=== PATIENT | male | born 1950 | race Two or more races ===

== ENCOUNTER 2023-09-28 06:14 | Inpatient (IN) | payer MEDICARE, MEDICAID ==
[~2023-09-28] VITALS: Ht 175.3 cm; Wt 76.3 kg
[2023-09-28 07:26] LABS: Basophils # (auto) 0.1 10 ^3/uL (0-0.2); Basophils % (auto) 1.4 % (0.0-2.0); Eosinophils # (auto) 0.5 10 ^3/uL (0-0.8); Eosinophils % (auto) 5.2 % (0.0-7.0); Hematocrit 32.5 % (41.0-53.0); Lymphocytes # (auto) 1.2 10 ^3/uL (0.4-5.4); Lymphocytes % (auto) 13.7 % (10.0-50.0); Mean Corpuscular Hemoglobin 33.7 pg (28.0-32.0); Mean Corpuscular Hgb Conc. 33.9 g/dL (32.0-36.0); Mean Corpuscular Volume 99.2 fL (80.0-100.0); Monocytes # (auto) 0.8 10 ^3/uL (0-1.3); Monocytes % (auto) 9.7 % (0.0-12.0); Neutrophils # (auto) 6.1 10 ^3/uL (1.6-8.6); Red Blood Cells 3.27 10^6/uL (4.5-5.90); Red Cell Distribution Width 14.2 % (11.8-14.3); White Blood Cell 8.7 10^3/uL (4.4-10.8)
[2023-09-28 07:45] LABS: Alanine Aminotransferase 24 U/L (7-40); Albumin 4.4 g/dL (3.2-4.8); Alkaline Phosphatase 77 U/L (46-116); Anion Gap 5 (5-15); Aspartate Aminotransferase 10 U/L (13-40); Bilirubin, Total 0.5 mg/dL (0.2-1.0); Blood Urea Nitrogen 49 mg/dL (9-23); Carbon Dioxide 33 mmol/L (20-30); Chloride 98 mmol/L (98-107); Glucose 121 mg/dL (74-106); Potassium 5.1 mmol/L (3.5-5.1); Sodium 136 mmol/L (136-145); Total Protein 7.3 g/dL (5.7-8.2)
[2023-09-28 07:55] LABS: Urine Bacteria None Seen /hpf (None Seen)
[2023-09-28 08:09] LABS: Urine Blood TRACE /uL (Negative); Urine Clarity Clear (Clear); Urine Color Light-Yellow (Yellow); Urine Protein, UAD 3+ (Negative); Urine Specific Gravity 1.009 (1.001-1.035); Urine Urobilinogen Normal (Negative); Urine WBC 1 /hpf (0 - 3); Urine pH 8.5 (5.0-9.0)
[2023-09-28] MEDS: cloNIDine HCL 0.1 MG TAB PO ONE ×2 (08:15→23:43)
[2023-09-28] MEDS ORDERED: ONDANSETRON HCL 4 MG/2 ML VIAL IV PRN ×2 (11:15→11:30)
[2023-09-28] MEDS ORDERED: DOCUSATE SOD 100 MG CAP PO PRN ×2 (11:15→11:30)
[2023-09-28] MEDS ORDERED: NITROGLYCERIN 0.4 MG SL TAB SL PRN ×2 (11:15→11:30)
[2023-09-28] MEDS ORDERED: MORPHINE SULFATE INJ 2 MG/ml SYRG IV PRN ×2 (11:15→11:30)
[2023-09-28] MEDS ORDERED: HYDROcodone-ACET 5/325MG TAB PO PRN ×2 (11:15→11:30)
[2023-09-28] MEDS ORDERED: ACETAMINOPHEN 325 MG TAB PO PRN ×2 (11:15→11:30)
[2023-09-28] MEDS ORDERED: SODIUM CHLOR 0.9% PF (SALINE LOCK) 10ML VIAL/SYR IV SCH (14:00)
[2023-09-28] MEDS: SODIUM CHLOR 0.9% PF (SALINE LOCK) 10ML VIAL/SYR IV SCH (14:02)
[2023-09-28 14:57] LABS: Hepatitis B Surface Antigen Negative (Negative)
[2023-09-28 15:18] LABS: Hepatitis A Ab IgM Negative; Hepatitis B Core IgM Negative
[2023-09-28 15:19] LABS: Hepatitis C Antibody Negative (Negative)
[2023-09-28] MEDS ORDERED: DEXTROSE (50%) 50ML SYRG IV PRN (17:30)
[2023-09-28 19:20] VITALS: PULSE 72; RESP 13; O2SAT 96
[2023-09-28 23:05] VITALS: BP 160/78; PULSE 68; RESP 16; RESP 18; TEMP 98.2; O2SAT 96
[2023-09-28] MEDS: InsuLIN REG 1unit/0.01ml Soln (100units/ml) SC SCH (23:43)
[2023-09-28] MEDS: ACCU-CHEK COMFORT CURVE STRIP VI SCH (23:43)
[2023-09-29] VITALS (8 sets, daily range): BP systolic 143–161; BP diastolic 55–74; PULSE 61–72; RESP 16–18; TEMP 97.8–98.2; O2SAT 94–99
[2023-09-29] MEDS ORDERED: ASPI-325 PO (02:18)
[2023-09-29] MEDS ORDERED: LOSA-534 PO (02:18)
[2023-09-29] MEDS ORDERED: AMLO1TAB22 PO (02:20)
[2023-09-29] MEDS ORDERED: ATOR20TA PO (02:20)
[2023-09-29] MEDS ORDERED: ACET-1881 PO (02:20)
[2023-09-29] MEDS ORDERED: CALC667C PO (02:20)
[2023-09-29] MEDS: InsuLIN REG 1unit/0.01ml Soln (100units/ml) SC SCH (06:12)
[2023-09-29 06:39] LABS: Basophils # (auto) 0.1 10 ^3/uL (0-0.2); Eosinophils # (auto) 0.4 10 ^3/uL (0-0.8); Eosinophils % (auto) 5.3 % (0.0-7.0); Mean Corpuscular Hgb Conc. 34.9 g/dL (32.0-36.0); Monocytes # (auto) 0.6 10 ^3/uL (0-1.3); White Blood Cell 6.8 10^3/uL (4.4-10.8)
[2023-09-29 06:43] LABS: Basophils % (auto) 1.1 % (0.0-2.0); Hematocrit 29.3 % (41.0-53.0); Hemoglobin 10.2 g/dL (13.5-17.5); Lymphocytes # (auto) 1.2 10 ^3/uL (0.4-5.4); Lymphocytes % (auto) 17.9 % (10.0-50.0); Mean Corpuscular Hemoglobin 34.8 pg (28.0-32.0); Mean Corpuscular Volume 99.6 fL (80.0-100.0); Monocytes % (auto) 8.3 % (0.0-12.0); Neutrophils # (auto) 4.6 10 ^3/uL (1.6-8.6); Neutrophils % (auto) 67.4 % (37.0-80.0); Red Blood Cells 2.94 10^6/uL (4.5-5.90); Red Cell Distribution Width 13.7 % (11.8-14.3)
[2023-09-29 06:53] LABS: Alanine Aminotransferase 18 U/L (7-40); Alkaline Phosphatase 68 U/L (46-116); Anion Gap 10 (5-15); Aspartate Aminotransferase < 8 U/L (13-40); BUN/Creatinine Ratio 6.1 (10.0-20.0); Bilirubin, Total 0.4 mg/dL (0.2-1.0); Blood Urea Nitrogen 58 mg/dL (9-23); Calcium 9.6 mg/dL (8.7-10.4); Carbon Dioxide 28 mmol/L (20-30); Chloride 98 mmol/L (98-107); Glucose 154 mg/dL (74-106); Potassium 5.5 mmol/L (3.5-5.1); Sodium 136 mmol/L (136-145); Total Protein 6.8 g/dL (5.7-8.2)
[2023-09-29] MEDS: SODIUM CHL 0.9% 1000 ML BAG XX ONE (07:00)
[2023-09-29] MEDS: LOSARTAN POTASSIUM 50 MG TAB PO SCH (10:00)
[2023-09-29] MEDS: ATORVASTATIN 20 MG TAB PO SCH (10:00)
[2023-09-29] MEDS: amLODIPine BESYLATE 5 MG TAB PO SCH (10:00)
[2023-09-29] MEDS: ASPirin-EC 81 mg tab PO SCH (10:00)
[2023-09-30] VITALS (8 sets, daily range): BP systolic 150–158; BP diastolic 58–81; PULSE 64–77; RESP 17–18; TEMP 97.8–98.4; O2SAT 94–99
[2023-09-30 06:21] LABS: Basophils # (auto) 0.1 10 ^3/uL (0-0.2); Basophils % (auto) 1.1 % (0.0-2.0); Eosinophils # (auto) 0.3 10 ^3/uL (0-0.8); Eosinophils % (auto) 4.4 % (0.0-7.0); Hematocrit 32.6 % (41.0-53.0); Hemoglobin 11.2 g/dL (13.5-17.5); Lymphocytes # (auto) 1.1 10 ^3/uL (0.4-5.4); Mean Corpuscular Hemoglobin 34.4 pg (28.0-32.0); Mean Corpuscular Hgb Conc. 34.3 g/dL (32.0-36.0); Mean Corpuscular Volume 100.2 fL (80.0-100.0); Monocytes # (auto) 0.7 10 ^3/uL (0-1.3); Monocytes % (auto) 10.7 % (0.0-12.0); Neutrophils # (auto) 4.5 10 ^3/uL (1.6-8.6); Neutrophils % (auto) 67.8 % (37.0-80.0); Red Blood Cells 3.25 10^6/uL (4.5-5.90); Red Cell Distribution Width 13.9 % (11.8-14.3); White Blood Cell 6.7 10^3/uL (4.4-10.8)
[2023-09-30] MEDS ORDERED: DEXTROSE (50%) 50ML SYRG IV PRN (08:30)
[2023-09-30 08:32] LABS: Chloride 101 mmol/L (98-107); Potassium 4.6 mmol/L (3.5-5.1); Sodium 138 mmol/L (136-145)
[2023-09-30 08:33] LABS: Anion Gap 7 (5-15); Calcium 9.7 mg/dL (8.5-10.1); Carbon Dioxide 30 mmol/L (20-30)
[2023-09-30 08:38] LABS: BUN/Creatinine Ratio 5.2 (10.0-20.0); Glucose 69 mg/dL (74-106)
[2023-09-30 08:39] LABS: Magnesium 2.1 mg/dL (1.6-2.6)
[2023-09-30 08:40] LABS: Phosphorus 4.1 mg/dL (2.4-5.1)
[2023-09-30 08:41] LABS: Blood Urea Nitrogen 37 mg/dL (9-23)
[2023-09-30] MEDS: InsuLIN REG 1unit/0.01ml Soln (100units/ml) SC SCH (11:01)
[2023-09-30] MEDS: ACCU-CHEK COMFORT CURVE STRIP VI SCH (11:02)
[2023-09-30] MEDS: amLODIPine BESYLATE 5 MG TAB PO SCH (11:16)
[2023-09-30] MEDS ORDERED: AMLO1TAB23 PO (13:19)
[2023-09-30 19:21] LABS: Folate (Folic Acid) 7.08 ng/mL (>5.38)
== END 2023-09-30 20:30 | disposition home or self-care (01) | DRG 682 ==
LOC: ER 06:14 → TELE 11:17 → TELE-WESTW 23:03 → WEST WING 09-30 17:16
PROVIDERS: ADMIT Internal Medicine; ATTEND Emergency Medicine
PROC: 5A1D70Z Performance of Urinary Filtration, Intermittent, Less than 6 Hours Per Day (ICD-10-PCS; principal; 2023-09-29)
PROC: 5A1D70Z Performance of Urinary Filtration, Intermittent, Less than 6 Hours Per Day (ICD-10-PCS; 2023-09-30)
DX: I12.0 Hypertensive chronic kidney disease with stage 5 chronic kidney disease or end stage renal disease (principal); N18.6 End stage renal disease; I16.1 Hypertensive emergency; E87.5 Hyperkalemia; E11.22 Type 2 diabetes mellitus with diabetic chronic kidney disease; R00.1 Bradycardia, unspecified; E78.5 Hyperlipidemia, unspecified; Z89.512 Acquired absence of left leg below knee; Z99.2 Dependence on renal dialysis
CPT/HCPCS: 36415; 71045; 80048; 80053; 80074; 81001; 82607; 82746; 82962; 83036; 83735; 84100; 84439; 84484; 85025; 87081; 90935; 93005; G0378; J1642; J1815

== ENCOUNTER 2024-01-30 21:41 | Inpatient (IN) | payer MEDICAID ==
[~2024-01-30] VITALS: Ht 175.3 cm; Wt 79.5 kg
[~2024-01-30 21:41] MED LIST: ACET-1881 PO; AMLO1TAB22 PO; AMLO1TAB23 PO; ASPI-325 PO; ATOR20TA PO; CALC667C PO; LOSA-534 PO
[2024-01-30] MEDS: SODIUM CHLORIDE 0.9% 1,000 ML IV ONE (22:50)
[2024-01-30 22:56] LABS: Basophils # (auto) 0.1 10 ^3/uL (0-0.2); Eosinophils # (auto) 0.5 10 ^3/uL (0-0.8)
[2024-01-30] MEDS: FAMOTIDINE (10MG/ML) 2ML VL IV ONE (22:57)
[2024-01-30] MEDS: ONDANSETRON HCL 4 MG/2 ML VIAL IV ONE (22:57)
[2024-01-30 22:58] LABS: Eosinophils % (auto) 6.3 % (0.0-7.0); Hematocrit 25.9 % (41.0-53.0); Lymphocytes # (auto) 1.1 10 ^3/uL (0.4-5.4); Lymphocytes % (auto) 13.3 % (10.0-50.0); Mean Corpuscular Hgb Conc. 34.9 g/dL (32.0-36.0); Mean Corpuscular Volume 97.3 fL (80.0-100.0); Monocytes # (auto) 0.9 10 ^3/uL (0-1.3); Monocytes % (auto) 10.4 % (0.0-12.0); Neutrophils # (auto) 5.8 10 ^3/uL (1.6-8.6); Platelet Count (auto) 207 10^3/uL (140-450); Red Blood Cells 2.66 10^6/uL (4.5-5.90); Red Cell Distribution Width 14.1 % (11.8-14.3); White Blood Cell 8.4 10^3/uL (4.4-10.8)
[2024-01-30 23:10] LABS: Alanine Aminotransferase 18 U/L (7-40); Albumin 4.3 g/dL (3.2-4.8); Alkaline Phosphatase 111 U/L (46-116); Anion Gap 9 (5-15); Aspartate Aminotransferase 12 U/L (13-40); BUN/Creatinine Ratio 6.4 (10.0-20.0); Blood Urea Nitrogen 41 mg/dL (9-23); Calcium 8.5 mg/dL (8.7-10.4); Carbon Dioxide 27 mmol/L (20-31); Chloride 101 mmol/L (98-107); Glucose 151 mg/dL (74-106); Lipase 59 U/L (12-53); Potassium 4.6 mmol/L (3.5-5.1); Sodium 137 mmol/L (136-145)
[2024-01-30 23:11] LABS: Bilirubin, Total 0.5 mg/dL (0.2-1.0); Total Protein 7.2 g/dL (5.7-8.2)
[2024-01-31 02:38] LABS: Urine WBC None Seen /hpf (0 - 3)
[2024-01-31 02:40] VITALS: PULSE 87; RESP 21; O2SAT 98
[2024-01-31 02:47] LABS: Urine Bacteria FEW /hpf (None Seen); Urine Blood 1+ /uL (Negative); Urine Clarity Turbid (Clear); Urine Color Light-Yellow (Yellow); Urine Protein, UAD 3+ (Negative); Urine Specific Gravity 1.013 (1.001-1.035); Urine Urobilinogen Normal (Negative)
[2024-01-31] MEDS ORDERED: HYDROcodone-ACET 5/325MG TAB PO PRN (06:00)
[2024-01-31] MEDS ORDERED: DOCUSATE SOD 100 MG CAP PO PRN (06:00)
[2024-01-31] MEDS ORDERED: ACETAMINOPHEN 325 MG TAB PO PRN (06:00)
[2024-01-31] MEDS ORDERED: hydrALAZINE HCL 20 MG/ML VL IV PRN (06:00)
[2024-01-31] MEDS ORDERED: MORPHINE SULFATE INJ 2 MG/ml SYRG IV PRN (06:00)
[2024-01-31] MEDS ORDERED: ONDANSETRON HCL 4 MG/2 ML VIAL IV PRN (06:00)
[2024-01-31] MEDS ORDERED: NITROGLYCERIN 0.4 MG SL TAB SL PRN (06:00)
[2024-01-31] MEDS ORDERED: DEXTROSE (50%) 50ML SYRG IV PRN (06:15)
[2024-01-31] MEDS: SODIUM CHLOR 0.9% PF (SALINE LOCK) 10ML VIAL/SYR IV SCH (06:22)
[2024-01-31] MEDS: DOCUSATE SOD 100 MG CAP PO ONE (06:26)
[2024-01-31] MEDS: cefTRIAXone 1GM/50ML D5W 50 ML IV ONE (06:31)
[2024-01-31] MEDS: InsuLIN REG 1unit/0.01ml Soln (100units/ml) SC SCH (06:39)
[2024-01-31] MEDS: ACCU-CHEK COMFORT CURVE STRIP VI SCH (06:39)
[2024-01-31 06:50] LABS: Basophils # (auto) 0.1 10 ^3/uL (0-0.2); Basophils % (auto) 1.1 % (0.0-2.0); Eosinophils # (auto) 0.5 10 ^3/uL (0-0.8); Eosinophils % (auto) 6.7 % (0.0-7.0); Hematocrit 25.7 % (41.0-53.0); Hemoglobin 8.9 g/dL (13.5-17.5); Lymphocytes # (auto) 0.9 10 ^3/uL (0.4-5.4); Lymphocytes % (auto) 11.1 % (10.0-50.0); Mean Corpuscular Hemoglobin 33.8 pg (28.0-32.0); Mean Corpuscular Hgb Conc. 34.5 g/dL (32.0-36.0); Mean Corpuscular Volume 97.8 fL (80.0-100.0); Monocytes # (auto) 0.7 10 ^3/uL (0-1.3); Monocytes % (auto) 9.6 % (0.0-12.0); Neutrophils # (auto) 5.5 10 ^3/uL (1.6-8.6); Neutrophils % (auto) 71.5 % (37.0-80.0); Platelet Count (auto) 197 10^3/uL (140-450); Red Blood Cells 2.63 10^6/uL (4.5-5.90); Red Cell Distribution Width 14.1 % (11.8-14.3); White Blood Cell 7.7 10^3/uL (4.4-10.8)
[2024-01-31 07:04] LABS: Alanine Aminotransferase 17 U/L (7-40); Albumin 4.3 g/dL (3.2-4.8); Alkaline Phosphatase 110 U/L (46-116); Anion Gap 12 (5-15); Aspartate Aminotransferase 11 U/L (13-40); BUN/Creatinine Ratio 6.8 (10.0-20.0); Blood Urea Nitrogen 45 mg/dL (9-23); Calcium 8.7 mg/dL (8.7-10.4); Carbon Dioxide 26 mmol/L (20-31); Chloride 101 mmol/L (98-107); Glucose 103 mg/dL (74-106); Potassium 4.4 mmol/L (3.5-5.1); Sodium 139 mmol/L (136-145)
[2024-01-31 07:05] LABS: Bilirubin, Total 0.6 mg/dL (0.2-1.0); Total Protein 7.2 g/dL (5.7-8.2)
[2024-01-31 08:00] VITALS: PULSE 80; RESP 21
[2024-01-31] MEDS: SEVELAMER 800 MG TAB PO SCH (08:10)
[2024-01-31] MEDS: FAMOTIDINE (10MG/ML) 2ML VL IV SCH (10:12)
[2024-01-31] MEDS: ASPirin 81 mg TAB PO SCH (10:12)
[2024-01-31] MEDS: B-COMPLEX W/ C & FOLIC ACID(NEPHROVITE TAB) PO SCH (10:12)
[2024-01-31] MEDS: amLODIPine BESYLATE 5 MG TAB PO SCH (10:13)
[2024-01-31] MEDS ORDERED: CEFD300C2 PO (10:50)
[2024-01-31] MEDS: SODIUM CHL 0.9% 1000 ML BAG XX ONE (11:00)
[2024-01-31 11:39] LABS: Magnesium 1.8 mg/dL (1.6-2.6)
[2024-01-31 11:41] LABS: Phosphorus 4.7 mg/dL (2.4-5.1)
[2024-01-31] MEDS: POLYETHYLENE GLYCOL 17 GM PWDR PO SCH (13:12)
[2024-01-31 14:48] VITALS: BP 165/69; PULSE 80; RESP 18; TEMP 97.9; O2SAT 99
[2024-01-31] MEDS ORDERED: EPOETIN ALFA-EPBX 10,000 UNIT/1ML VIAL SC ONE (21:00)
[2024-01-31] MEDS ORDERED: ATORVASTATIN 20 MG TAB PO SCH (22:00)
[2024-02-01] MEDS ORDERED: cefTRIAXone 1GM/50ML D5W 50 ML IV SCH (06:00)
== END 2024-01-31 19:30 | disposition home or self-care (01) | DRG 388 ==
LOC: EDBD 21:41 → ER 21:41 → TELE 01-31 06:03
PROVIDERS: ADMIT Nurse Practitioner Family; ATTEND Nurse Practitioner Family
DX: K56.41 Fecal impaction (principal); I50.41 Acute combined systolic (congestive) and diastolic (congestive) heart failure; N18.6 End stage renal disease; I13.2 Hypertensive heart and chronic kidney disease with heart failure and with stage 5 chronic kidney disease, or end stage renal disease; N30.00 Acute cystitis without hematuria; I16.0 Hypertensive urgency; D63.1 Anemia in chronic kidney disease; E11.22 Type 2 diabetes mellitus with diabetic chronic kidney disease; H54.3 Unqualified visual loss, both eyes; E11.51 Type 2 diabetes mellitus with diabetic peripheral angiopathy without gangrene; Z89.512 Acquired absence of left leg below knee; Z99.2 Dependence on renal dialysis; Z86.73 Personal history of transient ischemic attack (TIA), and cerebral infarction without residual deficits; Z87.442 Personal history of urinary calculi; Z79.4 Long term (current) use of insulin; N20.0 Calculus of kidney
CPT/HCPCS: 36415; 80053; 81001; 82306; 82962; 83036; 83690; 83735; 83880; 83970; 84100; 84484; 85025; 96374; 96375; G0378; J2405; J3490

== ENCOUNTER 2024-02-26 17:24 | Inpatient (IN) | payer MEDICAID ==
[~2024-02-26] VITALS: Ht 175.3 cm; Wt 77.6 kg
[~2024-02-26 17:24] MED LIST changes: +CEFD300C2 PO
[2024-02-26 18:05] VITALS: PULSE 65; RESP 16; O2SAT 96
[2024-02-26 18:18] LABS: Basophils # (auto) 0.1 10 ^3/uL (0-0.2); Basophils % (auto) 1.1 % (0.0-2.0); Eosinophils # (auto) 0.4 10 ^3/uL (0-0.8); Eosinophils % (auto) 5.4 % (0.0-7.0); Hematocrit 30.2 % (41.0-53.0); Hemoglobin 10.4 g/dL (13.5-17.5); Lymphocytes # (auto) 0.8 10 ^3/uL (0.4-5.4); Mean Corpuscular Hgb Conc. 34.3 g/dL (32.0-36.0); Mean Corpuscular Volume 99.1 fL (80.0-100.0); Monocytes # (auto) 0.7 10 ^3/uL (0-1.3); Monocytes % (auto) 9.5 % (0.0-12.0); Platelet Count (auto) 200 10^3/uL (140-450); Red Blood Cells 3.05 10^6/uL (4.5-5.90); Red Cell Distribution Width 15.3 % (11.8-14.3)
[2024-02-26 18:31] LABS: Alanine Aminotransferase 24 U/L (7-40); Albumin 4.4 g/dL (3.2-4.8); Alkaline Phosphatase 147 U/L (46-116); Anion Gap 7 (5-15); Aspartate Aminotransferase 17 U/L (13-40); Bilirubin, Total 0.6 mg/dL (0.2-1.0); Blood Urea Nitrogen 40 mg/dL (9-23); Carbon Dioxide 28 mmol/L (20-31); Chloride 101 mmol/L (98-107); Glucose 91 mg/dL (74-106); Lipase 65 U/L (12-53); Potassium 4.4 mmol/L (3.5-5.1); Sodium 136 mmol/L (136-145); Total Protein 7.4 g/dL (5.7-8.2)
[2024-02-26] MEDS ORDERED: ONDANSETRON HCL 4 MG/2 ML VIAL IV PRN (21:15)
[2024-02-26 23:00] VITALS: PULSE 81; RESP 14; O2SAT 96
[2024-02-26] MEDS ORDERED: NITROGLYCERIN 0.4 MG SL TAB SL PRN (23:00)
[2024-02-26] MEDS ORDERED: MORPHINE SULFATE INJ 2 MG/ml SYRG IV PRN (23:00)
[2024-02-27] VITALS (8 sets, daily range): BP systolic 139–161; BP diastolic 64–73; PULSE 59–69; RESP 15–20; TEMP 97.4–98.4; O2SAT 94–97
[2024-02-27] MEDS: ONDANSETRON HCL 4 MG/2 ML VIAL IV ONE
[2024-02-27] MEDS ORDERED: cloNIDine HCL 0.1 MG TAB PO SCH
[2024-02-27] MEDS: SODIUM CHLOR 0.9% PF (SALINE LOCK) 10ML VIAL/SYR IV SCH (00:01)
[2024-02-27] MEDS: AZITHROMYCIN 500MG/ 250ML 250 ML IV ONE (00:01)
[2024-02-27] MEDS: MORPHINE SULFATE 4 MG/ML SYR/VIAL IV ONE (00:01)
[2024-02-27] MEDS: cloNIDine HCL 0.1 MG TAB PO PRN (00:02)
[2024-02-27] MEDS: ATORVASTATIN 20 MG TAB PO SCH (00:12)
[2024-02-27 05:37] LABS: Basophils # (auto) 0.1 10 ^3/uL (0-0.2); Basophils % (auto) 1.9 % (0.0-2.0); Eosinophils # (auto) 0.2 10 ^3/uL (0-0.8); Eosinophils % (auto) 3.8 % (0.0-7.0); Hematocrit 26.2 % (41.0-53.0); Hemoglobin 8.9 g/dL (13.5-17.5); Lymphocytes # (auto) 0.5 10 ^3/uL (0.4-5.4); Lymphocytes % (auto) 10.2 % (10.0-50.0); Mean Corpuscular Hemoglobin 33.5 pg (28.0-32.0); Mean Corpuscular Hgb Conc. 33.9 g/dL (32.0-36.0); Mean Corpuscular Volume 98.9 fL (80.0-100.0); Monocytes # (auto) 0.5 10 ^3/uL (0-1.3); Monocytes % (auto) 9.1 % (0.0-12.0); Platelet Count (auto) 179 10^3/uL (140-450); Red Blood Cells 2.65 10^6/uL (4.5-5.90); Red Cell Distribution Width 15.3 % (11.8-14.3); White Blood Cell 5.4 10^3/uL (4.4-10.8)
[2024-02-27 05:58] LABS: Alanine Aminotransferase 18 U/L (7-40); Albumin 3.6 g/dL (3.2-4.8); Alkaline Phosphatase 118 U/L (46-116); Anion Gap 9 (5-15); Aspartate Aminotransferase 11 U/L (13-40); BUN/Creatinine Ratio 7.7 (10.0-20.0); Bilirubin, Total 0.4 mg/dL (0.2-1.0); Calcium 8.7 mg/dL (8.7-10.4); Carbon Dioxide 27 mmol/L (20-31); Chloride 100 mmol/L (98-107); Potassium 5.3 mmol/L (3.5-5.1); Sodium 136 mmol/L (136-145); Total Protein 6.4 g/dL (5.7-8.2)
[2024-02-27 06:07] LABS: Blood Urea Nitrogen 50 mg/dL (9-23); Glucose 199 mg/dL (74-106)
[2024-02-27] MEDS: ASPirin 81 mg TAB PO SCH (10:43)
[2024-02-27] MEDS: SODIUM CHL 0.9% 1000 ML BAG XX ONE (12:00)
[2024-02-27] MEDS: CALCIUM ACETATE 667 MG CAP PO SCH (18:03)
[2024-02-27] MEDS: AZITHROMYCIN 500MG/ 250ML 250 ML IV SCH (21:42)
[2024-02-27] MEDS: EPOETIN ALFA-EPBX 4,000 UNIT/ML VIAL SC ONE (21:47)
[2024-02-28] VITALS (8 sets, daily range): BP systolic 119–164; BP diastolic 64–77; PULSE 55–69; RESP 16–20; TEMP 97.6–98.4; O2SAT 92–99
[2024-02-28] MEDS: ACETAMINOPHEN 325 MG TAB PO PRN (02:26)
[2024-02-28 05:51] LABS: Basophils # (auto) 0.1 10 ^3/uL (0-0.2); Basophils % (auto) 1.7 % (0.0-2.0); Eosinophils # (auto) 0.3 10 ^3/uL (0-0.8); Hematocrit 27.6 % (41.0-53.0); Hemoglobin 9.4 g/dL (13.5-17.5); Lymphocytes # (auto) 0.7 10 ^3/uL (0.4-5.4); Lymphocytes % (auto) 11.8 % (10.0-50.0); Mean Corpuscular Hemoglobin 33.7 pg (28.0-32.0); Mean Corpuscular Hgb Conc. 34.1 g/dL (32.0-36.0); Mean Corpuscular Volume 98.7 fL (80.0-100.0); Monocytes # (auto) 0.5 10 ^3/uL (0-1.3); Monocytes % (auto) 8.5 % (0.0-12.0); Neutrophils # (auto) 4.4 10 ^3/uL (1.6-8.6); Nucleated Red Blood Cells % 0.1 %; Platelet Count (auto) 179 10^3/uL (140-450); Red Cell Distribution Width 14.7 % (11.8-14.3)
[2024-02-28 06:02] LABS: Chloride 99 mmol/L (98-107); Potassium 4.6 mmol/L (3.5-5.1); Sodium 137 mmol/L (136-145)
[2024-02-28 06:03] LABS: Anion Gap 9 (5-15); Calcium 9.1 mg/dL (8.7-10.4); Carbon Dioxide 29 mmol/L (20-31)
[2024-02-28 06:08] LABS: Blood Urea Nitrogen 46 mg/dL (9-23); Glucose 81 mg/dL (74-106)
[2024-02-28] MEDS: DOCUSATE SOD 100 MG CAP PO PRN (09:19)
[2024-02-29] VITALS (8 sets, daily range): BP systolic 120–178; BP diastolic 72–82; PULSE 54–75; RESP 16–20; TEMP 97.3–99; O2SAT 96–99
[2024-02-29 07:19] LABS: Basophils # (auto) 0.1 10 ^3/uL (0-0.2); Eosinophils # (auto) 0.4 10 ^3/uL (0-0.8); Eosinophils % (auto) 7.5 % (0.0-7.0); Hematocrit 28.9 % (41.0-53.0); Hemoglobin 9.8 g/dL (13.5-17.5); Lymphocytes # (auto) 0.8 10 ^3/uL (0.4-5.4); Lymphocytes % (auto) 15.9 % (10.0-50.0); Mean Corpuscular Hemoglobin 33.7 pg (28.0-32.0); Mean Corpuscular Hgb Conc. 33.9 g/dL (32.0-36.0); Mean Corpuscular Volume 99.5 fL (80.0-100.0); Monocytes # (auto) 0.6 10 ^3/uL (0-1.3); Monocytes % (auto) 10.6 % (0.0-12.0); Neutrophils # (auto) 3.3 10 ^3/uL (1.6-8.6); Platelet Count (auto) 182 10^3/uL (140-450); Red Cell Distribution Width 15.5 % (11.8-14.3); White Blood Cell 5.2 10^3/uL (4.4-10.8)
[2024-02-29 07:30] LABS: Chloride 98 mmol/L (98-107); Potassium 5.3 mmol/L (3.5-5.1); Sodium 133 mmol/L (136-145)
[2024-02-29 07:31] LABS: Anion Gap 10 (5-15); Carbon Dioxide 25 mmol/L (20-31)
[2024-02-29 07:32] LABS: Calcium 8.5 mg/dL (8.7-10.4)
[2024-02-29 07:36] LABS: Glucose 151 mg/dL (74-106)
[2024-02-29 07:37] LABS: BUN/Creatinine Ratio 7.6 (10.0-20.0); Blood Urea Nitrogen 54 mg/dL (9-23)
[2024-02-29] MEDS: cefTRIAXone 1GM/50ML D5W 50 ML IV SCH (12:38)
[2024-02-29] MEDS: hydrALAZINE HCL 20 MG/ML VL IV PRN (12:46)
[2024-02-29] MEDS: HYDROcodone-ACET 5/325MG TAB PO PRN (12:56)
[2024-02-29] MEDS: LACTULOSE 20Gm/30ML SOLN PO ONE (16:18)
[2024-03-01] VITALS (7 sets, daily range): BP systolic 128–159; BP diastolic 45–87; PULSE 55–80; RESP 9–20; TEMP 97.6–98.9; O2SAT 94–98
[2024-03-01 09:55] LABS: Chloride 100 mmol/L (98-107); Potassium 3.4 mmol/L (3.5-5.1); Sodium 135 mmol/L (136-145)
[2024-03-01 09:56] LABS: Anion Gap 5 (5-15); Calcium 8.6 mg/dL (8.7-10.4); Carbon Dioxide 30 mmol/L (20-31)
[2024-03-01 10:01] LABS: BUN/Creatinine Ratio 8.5 (10.0-20.0); Glucose 93 mg/dL (74-106)
[2024-03-01 10:07] LABS: Blood Urea Nitrogen 33 mg/dL (9-23)
[2024-03-01] MEDS ORDERED: DOXY1CAP57 PO (12:06)
== END 2024-03-01 19:16 | disposition home or self-care (01) | DRG 177 ==
LOC: ER 17:24 → EDBD 17:24 → TELE 22:47 → TELE-EAST 02-27 03:47
PROVIDERS: ADMIT Internal Medicine; ATTEND Nurse Practitioner Acute Care
PROC: 5A1D70Z Performance of Urinary Filtration, Intermittent, Less than 6 Hours Per Day (ICD-10-PCS; principal; 2024-02-27)
DX: J15.69 Pneumonia due to other Gram-negative bacteria (principal); I50.23 Acute on chronic systolic (congestive) heart failure; N18.6 End stage renal disease; I13.2 Hypertensive heart and chronic kidney disease with heart failure and with stage 5 chronic kidney disease, or end stage renal disease; K59.00 Constipation, unspecified; J15.9 Unspecified bacterial pneumonia; I16.0 Hypertensive urgency; D63.1 Anemia in chronic kidney disease; E11.22 Type 2 diabetes mellitus with diabetic chronic kidney disease; E78.5 Hyperlipidemia, unspecified; E87.5 Hyperkalemia; Z99.2 Dependence on renal dialysis; Z89.512 Acquired absence of left leg below knee; Z79.899 Other long term (current) drug therapy
CPT/HCPCS: 36415; 74176; 80048; 80053; 83690; 85025; 87081; 87340; 90935; G0378; J2405

== ENCOUNTER 2024-03-04 09:13 | Emergency (ER) | payer MEDICAID ==
[~2024-03-04] VITALS: Ht 177.8 cm; Wt 77.0 kg
[~2024-03-04 09:13] MED LIST changes: -AMLO1TAB23 PO; -CEFD300C2 PO; +DOXY1CAP57 PO
[2024-03-04 10:06] LABS: Chloride 100 mmol/L (98-107); Potassium 4.9 mmol/L (3.5-5.1); Sodium 135 mmol/L (136-145)
[2024-03-04 10:07] VITALS: PULSE 82; RESP 17; O2SAT 97
[2024-03-04 10:07] LABS: Anion Gap 12 (5-15); Calcium 8.9 mg/dL (8.7-10.4); Carbon Dioxide 23 mmol/L (20-31)
[2024-03-04 10:12] LABS: BUN/Creatinine Ratio 7.2 (10.0-20.0); Blood Urea Nitrogen 62 mg/dL (9-23); Glucose 83 mg/dL (74-106)
[2024-03-04 10:16] LABS: Basophils # (auto) 0.1 10 ^3/uL (0-0.2); Basophils % (auto) 1.3 % (0.0-2.0); Eosinophils # (auto) 0.4 10 ^3/uL (0-0.8); Eosinophils % (auto) 5.3 % (0.0-7.0); Hematocrit 31.3 % (41.0-53.0); Hemoglobin 10.3 g/dL (13.5-17.5); Lymphocytes % (auto) 13.4 % (10.0-50.0); Mean Corpuscular Hemoglobin 33.5 pg (28.0-32.0); Mean Corpuscular Hgb Conc. 33.1 g/dL (32.0-36.0); Mean Corpuscular Volume 101.1 fL (80.0-100.0); Monocytes # (auto) 0.7 10 ^3/uL (0-1.3); Monocytes % (auto) 9.3 % (0.0-12.0); Neutrophils # (auto) 5.2 10 ^3/uL (1.6-8.6); Neutrophils % (auto) 70.7 % (37.0-80.0); Platelet Count (auto) 174 10^3/uL (140-450); Red Blood Cells 3.09 10^6/uL (4.5-5.90); Red Cell Distribution Width 15.9 % (11.8-14.3); White Blood Cell 7.3 10^3/uL (4.4-10.8)
--- NOTE | 2024-03-04 10:38 | ED.PDOC ---
GI ASSESSMENT HPI Comments 73 year old male RAZIA presents to the ED with chief complaint of abdominal pain. Patient reports that he has been experiencing suprapubic abdominal cramping for the past 8 days with an associated single episode of diarrhea after 6 days of no bowel movements. Patient relays that he currently attends dialysis and last went on Thursday. 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 Patient notes he last urinated today and last had a bowel movement yesterday. Patient denies any fever, chills, dizziness, chest pain, or SOB. Chief Complaint: Abdominal Pain Time Seen by MD: 10:30 Primary Care Provider: NONE Reviewed Notes: Nurses Notes, Filter Worker Notes, Medications, Allergies Allergies: Coded Allergies: NO KNOWN ALLERGIES (Unverified , 09/28/23) Home Meds Active Scripts Doxycycline Monohydrate (Doxycycline Monohydrate) 100 Mg Cap, 1 CAP PO BID for 7 Days, #14 CAP Prov:JOVANNA ALANIZ COCONUT CANDY MAKER 03/01/24 Reported Medications Atorvastatin Calcium (Lipitor) 20 Mg Tab, 1 TAB PO DAILY, #90 TAB 1 Refill 09/29/23 Acetaminophen (Acetaminophen) 325 Mg Tab, 650 MG PO TIDP PRN for PAIN SCALE 1 THRU 6 for 30 Days, MG 0 Refills 09/29/23 Amlodipine Besylate (Amlodipine Besylate) 5 Mg Tab, 5 MG PO DAILY for 30 Days, MG 09/29/23 Calcium Acetate (Phosphate Bin (Calcium Acetate) 667 Mg Cap, 667 MG PO TIDWM for 30 Days, MG 09/29/23 Losartan Potassium (Losartan Potassium) 50 Mg Tab, 50 MG PO BID for 30 Days, MG 09/29/23 Aspirin (Aspirin Low Dose) 81 Mg Tab, 1 TAB PO DAILY 09/29/23 Information Source: Patient, Emergency Med Personnel Mode of Arrival: EMS Timing: Days Duration: Since onset Prehospital treatment: None Quality: Cramping Vomitus: None Stool: Watery Severity: Moderate Recent: None Recent Hx of: None Pain Location: Suprapubic Modifying Factors: Nothing Associated sign and symptoms: Diarrhea, Abdominal Pain Past Medical History PAST MEDICAL HISTORY: CHF, DM, ESRD, High Lipids, HTN Surgical History: BKA, Hernia Repair Family History Family History: Reviewed,noncontributory to illness Social History Smoker: Non-Smoker Alcohol: Denies ETOH Use Drugs: Denies Drug Use Lives In: Home Constitutional: denies: chills, diaphoresis, fatigue, fever, malaise, sweats, weakness, others EENTM: denies: blurred vision, double vision, ear bleeding, ear discharge, ear drainage, ear pain, ear ringing, eye pain, eye redness, hearing loss, mouth pain, mouth swelling, nasal discharge, nose bleeding, nose congestion, nose pain, photophobia, tearing, throat pain, throat swelling, voice changes, others Respiratory: denies: cough, hemoptysis, orthopnea, SOB at rest, shortness of breath, SOB with excertion, stridor, wheezing, others Cardiovascular: denies: chest pain, dizzy spells, diaphoresis, Dyspnea on exertion, edema, irregular heart beat, left arm pain, lightheadedness, palpitations, PND, syncope, others Gastrointestinal: reports: abdominal pain, diarrhea; denies: abdomen distended, blood streaked bowels, constipated, dysphagia, difficulty swallowing, h ematemesis, melena, nausea, poor appetite, poor fluid intake, rectal bleeding, rectal pain, vomiting, others Genitourinary: denies: burning, dysuria, flank pain, frequency, hematuria, incontinence, penile discharge, penile sore, pain, testicle pain, testicle swelling, urgency, others Neurological: denies: dizziness, fainting, headache, left sided numbness, left sided weakness, numbness, paresthesia, pre-existing deficit, right sided numbness, right sided weakness, seizure, speech problems, tingling, tremors, weakness, others Musculoskeletal: reports: others (Bilateral foot pain); denies: back pain, gout, joint pain, joint swelling, muscle pain, muscle stiffness, neck pain Integumetry: denies: bruises, change in color, change in hair/nails, dryness, laceration, lesions, lumps, rash, wounds, others Allergic/Immunocompromised: denies: Difficulty Healing, Frequent Infections, Hives, Itching, others Hematologic/Lymphatic: denies: anemia, blood clots, easy bleeding, easy bruising, swollen glands, others Endocrine: denies: excessive hunger, excessive sweating, excessive thirst, excessive urination, flushing, intolerance to cold, intolerance to heat, unexplained weight gain, unexplained weight loss, others Psychiatric: denies: anxiety, bipolar disorder, depression, hopeless, panic disorder, schizophrenia, sleepless, suicidal, others All Other Systems: Reviewed and Negative Physical Exam General Appearance: No Apparent Distress, Normal HEENT: Normal ENT Inspection, PERRL/EOMI, Other (Legally blind.) Neck: Full Range of Motion, Non-Tender, Normal, Normal Inspection Respiratory: Chest Non-Tender, Lungs Clear, No Accessory Muscle Use, No Respiratory Distress, Normal Breath Sounds Cardiovascular: No Edema, No JVD, No Murmur, No Gallop, Normal Peripheral Pulses, Regular Rate/Rhythm Breast Exam: Deferred Gastrointestinal: No Organomegaly, Non Tender, No Pulsatile Mass, Normal Bowel Sounds, Soft Genitalia: Deferred Pelvic: Deferred Rectal: Deferred Extremities: No calf tenderness, Normal capillary refill, Normal range of motion, Non-tender, Other (Left brachial fistula with good thrill. 2+ pitting edema to right lower extremity. Prosthesis of left lower extremity.) Musculoskeletal : Apperance: Normal Neurologic: Alert, automation and controls supervisor II-XII nml as Tested, No Motor Deficits, Normal Affect, Normal Mood, No Sensory Deficits Cerebellar Function: Normal Reflexes: Normal Skin: Dry, Normal Color, Warm Lymphatic: No Adenopathy EKG EKG : Pulse Rate (adult): 86 [place]: Normal Cardiac Rhythm: NSR Block: None Hypertrophy: None ST: Normal Comments QTC of 528 prolonged, artifact. Was a procedure done? Was a procedure done?: No GI differential Dx Differential Diagnosis: Appendicitis Other Differential Diagnosis Hypertensive urgency, fluid overload requiring dialysis, small-bowel obstruction, urinary obstruction X-Ray, Labs, Meds, VS Vital Signs Date Time Temp Pulse Resp B/P (MAP) Pulse Ox O2 Delivery O2 Flow Rate FiO2 03/04/24 15:00 97.5 61 12 138/70 (92) 94 97.5 03/04/24 14:00 61 12 142/65 (90) 94 03/04/24 12:16 70 15 165/70 03/04/24 12:00 72 17 165/70 (101) 95 03/04/24 11:19 200/91 03/04/24 11:00 85 17 188/89 (122) 95 03/04/24 10:38 86 03/04/24 10:07 82 17 97 Room Air* 0 21 03/04/24 10:06 97.5 83 17 206/89 (128) 95 97.5 03/04/24 09:19 97.3 16 16 222/95 (137) 87 03/04/24 09:13 86 Lab Test 03/04/24 11:11 03/04/24 09:39 03/04/24 09:33 Range/Units Urine Color Light-yellow Yellow Urine Clarity Clear Clear Urine pH 8.0 5.0-9.0 Urine Specific [place] 1.009 1.001-1.035 Urine Protein 2+ H Negative Urine Ketones Negative Negative Urine Blood Trace H Negative /uL Urine Nitrite Negative Negative Urine Bilirubin Negative Negative Urine Urobilinogen Normal Negative mg/dL Urine Leukocyte Esterase Negative Negative /uL Urine RBC 3 0 - 3 /hpf Urine WBC <1 0 - 3 /hpf Urine Squamous Epithelial Cells None seen <5 /hpf Urine Bacteria None seen None Seen /hpf Urine Glucose 1+ H Normal mg/dL White Blood Count 7.3 # 4.4-10.8 10^3/uL Red Blood Count 3.09 L 4.5-5.90 10^6/uL Hemoglobin 10.3 L 13.5-17.5 g/dL Hematocrit 31.3 L 41.0-53.0 % Mean Corpuscular Volume 101.1 H 80.0-100.0 fL Mean Corpuscular Hemoglobin 33.5 H 28.0-32.0 pg Mean Corpuscular Hemoglobin Concent 33.1 32.0-36.0 g/dL Red Cell Distribution Width 15.9 H 11.8-14.3 % Platelet Count 174 140-450 10^3/uL Mean Platelet Volume 8.2 6.9-10.8 fL Neutrophils (%) (Auto) 70.7 37.0-80.0 % Lymphocytes (%) (Auto) 13.4 10.0-50.0 % Monocytes (%) (Auto) 9.3 0.0-12.0 % Eosinophils (%) (Auto) 5.3 0.0-7.0 % Basophils (%) (Auto) 1.3 0.0-2.0 % Neutrophils # (Auto) 5.2 1.6-8.6 10 ^3/uL Lymphocytes # (Auto) 1.0 0.4-5.4 10 ^3/uL Monocytes # (Auto) 0.7 0-1.3 10 ^3/uL Eosinophils # (Auto) 0.4 0-0.8 10 ^3/uL Basophils # (Auto) 0.1 0-0.2 10 ^3/uL Nucleated Red Blood Cells 0.0 % Sodium Level 135 L 136-145 mmol/L Potassium Level 4.9 3.5-5.1 mmol/L Chloride Level 100 98-107 mmol/L Carbon Dioxide Level 23 20-31 mmol/L Anion Gap 12 5-15 Blood Urea Nitrogen 62 H 9-23 mg/dL Creatinine 8.63 #H 0.700-1.30 mg/dL Glomerular Filtration Rate Calc 6 >90 mL/min BUN/Creatinine Ratio 7.2 L 10.0-20.0 Serum Glucose 83 74-106 mg/dL Calcium Level 8.9 8.7-10.4 mg/dL Total Bilirubin 0.5 0.2-1.0 mg/dL Direct Bilirubin 0.2 <0.3 mg/dL Aspartate Amino Transferase (AST) 15 13-40 U/L Alanine Aminotransferase (ALT) 20 7-40 U/L Alkaline Phosphatase 129 H 46-116 U/L Total Protein 7.3 5.7-8.2 g/dL Albumin 4.2 3.2-4.8 g/dL POC Glucose 78 70-106 mg/dl Current Medications Medications (Trade) Dose Ordered Sig/Vane Route Start Time Stop Time Status Last Admin Clonidine HCl (Catapres Tablet) 0.1 mg ONCE ONCE PO 03/04/24 10:45 03/04/24 10:46 DC 03/04/24 11:19 Ondansetron HCl (Zofran) 4 mg ONCE ONCE IV 03/04/24 12:00 03/04/24 12:02 DC 03/04/24 12:15 Morphine Sulfate 2 mg ONCE ONCE IV 03/04/24 12:00 03/04/24 12:02 DC 03/04/24 12:16 CT Abd/Pel: FINDINGS: Evaluation of the abdominal viscera is limited without intravenous contrast. There is a stable 2.2 cm subcapsular lesion in the left hepatic lobe. There is sludge seen within the gallbladder. There is no evidence of a radiopaque renal calculus. There is no hydr onephrosis. There is nonspecific fat stranding surrounding both kidneys. There is no evidence of a ureteral calculus or hydroureter. The pancreas, adrenal glands, and spleen appear within normal limits. There is no gross evidence of abdominal lymphadenopathy. There is small amount of abdominal ascites and mesenteric changes in the edema. The stomach grossly appears unremarkable. The small and large bowel loops demonstrate normal caliber. The abdominal aorta and IVC appear within normal limits. The bladder appears unremarkable for the degree of distention. Pelvic organ appears within normal limits. There is no evidence of a pelvic mass or lymphadenopathy. There is no free fluid collection. There has been interval increase in right pleural effusion with atelectasis versus infiltrate in the right lung base. There is stable cardiomegaly and pericardial effusion. There is no acute osseous abnormality. There is edema in the soft tissues. IMPRESSION: 1. Interval increase in right pleural effusion with atelectasis versus infiltrate in the right lung base. 2. There is stable cardiomegaly with pericardial effusion. 3. Small amount of ascites and edematous changes in the mesenteries and abdominal wall soft tissues. 4. Stable 2.2 cm subcapsular lesion in the left hepatic lobe. 5. There is no evidence of a radiopaque renal calculus. There is no hydronephrosis. [place] [id number] Ph: [phone] DIAGNOSTIC IMAGING Diagnostic Imaging Report : [id number] Signed PATIENT: NAV REAVESACCT: [id number] UNIT: [id number] : 1950 LOC: ER ROOM / BED: / AGE / SEX: 73 / M ADM STATUS: REG ER SERVICE [id number] ORDERING PHYSICIAN: PAULA SANABRIA MD PROCEDURE(s): CXRP - CHEST PORTABLE REASON: pleural effusion ORDER NUMBER(s): [id number], ACCESSION NUMBER(s): [id number] CHEST RADIOGRAPH Indication:pleural effusion Technique: Single frontal view of the chest was obtained Comparison: XY CHEST PORTABLE on DOS: 09/28/23 FINDINGS: Lines and Tubes: None Lungs: No focal consolidation. Pleura: Small bilateral pleural effusions. No pneumothorax. Cardiomediastinal contours: Cardiomegaly. Bones: No acute osseous abnormality. IMPRESSION: Cardiomegaly with mild CHF. Small bilateral pleural effusions. ATED BY: NICOLE ZIMMER MD DICTATED DATE/TIME: 03/04/241327 SIGNED BY: NICOLE ZIMMER MD SIGNED DATE/TIME: 03/04/241327 CC: 73-year-old male presents here with abdominal pain. He has a known history of end-stage renal disease and is currently on dialysis. Patient was supposed to get dialysis today but due to abdominal pain came to the ER. He states the pain is in his suprapubic region. He states he has had abdominal pain for several days in that region. He does not make very much urine but the uterine he did make he passed this morning. He states during the last several days he has had 1 day of diarrhea but other days he has not had any bowel movement. Denies any fever or chills. On my evaluation patient was tender to the suprapubic region. Considered possible small bowel obstruction, also urinary retention. CT abdomen pelvis was done which does not demonstrate either of those. It does demonstrate some small pleural effusion to the right side/atelectasis/pneumonia. However I spoke with the patient and he states he has not had any cough cold runny nose that would suggest pneumonia like symptoms. Chest x-ray has been done which demonstrates a cardiomegaly with mild CHF and small bilateral pleural effusions. I doubt pneumonia at this time. While in the ER patient has required clonidine for his high blood pressure that was in the 200s. Blood work has been done which is unremarkable. Patient has been given pain medications and is pain has improved. At this time we contacted daughter who requested we try to send him to his dialysis today at 2:30 p.m.. We have arranged for him to go there. At this time I have low suspicion for emergent pathology. I have discharged the patient home patient blood pressure had improved to 165 systolic while in the ER. Patient clinically feels much better and also was ready for discharge dialysis. Images Reviewed?: Images reviewed and evaluated by me Time of 1ST Reevaluation: 11:30 Reevaluation 1ST: Unchanged Time of 2ND Reevaluation: 12:15 Reevaluation 2ND: Improved Patient Education/Counseling: Diagnosis, Treatment Family Education/Counseling: No Family Present Departure 1 Departure Time of Disposition: 12:56 Impression: Primary Impression: Abdominal pain Qualified Codes: R10.30 - Lower abdominal pain, unspecified Additional Impressions: Hypertensive urgency Pleural effusion on right Disposition: 01 HOME / SELF CARE / HOMELESS Condition: Stable Additional Instructions: It is important to go to dialysis today. Discharged With: Self Critical Care Note Critical Care Time?: No Stability Stability form required: No Heart Score Heart Score: Heart Score Response (Comments) Value History N/A 0 EKG N/A 0 Age N/A 0 Risk Factors N/A 0 Troponin N/A 0 Total 0 I personally scribed for PAULA SANABRIA MD ([email or web address]) on 03/04/24 at 10:38. Electronically submitted by Kelton Woodward ([email or web address]). I personally scribed for PAULA SANABRIA MD ([email or web address]) on 03/04/24 at 12:24. Electronically submitted by Kelton Woodward ([email or web address]). PAULA SANABRIA MD Mar 04, 2024 10:38
[2024-03-04] MEDS: cloNIDine HCL 0.1 MG TAB PO ONE (11:19)
[2024-03-04 11:24] LABS: Albumin 4.2 g/dL (3.2-4.8); Bilirubin, Direct 0.2 mg/dL (<0.3); Bilirubin, Total 0.5 mg/dL (0.2-1.0); Total Protein 7.3 g/dL (5.7-8.2)
--- NOTE | 2024-03-04 11:44 | DVH ---
CT ABDOMEN AND PELVIS WITHOUT CONTRAST CLINICAL HISTORY: suprapubic abd pain TECHNIQUE: Multidetector CT of the abdomen was performed from lung bases to pubic symphysis. Imaging was performed without IV contrast. Axial, coronal and sagittal multiplanar reformats were obtained fr om the axial data set by the technologist. Radiation optimization: All CT scans at this facility use at least one of these dose optimization erinn hniques: automated exposure control mA and/or kV adjustment per patient size (includes targeted exam s where dose is matched to clinical indication) or iterative reconstruction. Radiation Dose Information: CT Dose: CTDI volume is 14 mGy. Dose-length product is 739 mGy*cm Comparison: CT CT AB PEL WO CON-NO ORAL OR IV on DOS: 02/26/24, CT CT AB PEL WO CON-NO ORAL OR IV on D OS: 01/30/24 FINDINGS: Evaluation of the abdominal viscera is limited without intravenous contrast. There is a stable 2.2 cm subcapsular lesion in the left hepatic lobe. There is sludge seen within the gallbladder. There is no evidence of a radiopaque renal calculus. There is no hydronephrosis. There is nonspecifi c fat stranding surrounding both kidneys. There is no evidence of a ureteral calculus or hydroureter. The pancreas, adrenal glands, and spleen appear within normal limits. There is no gross evidence of abdominal lymphadenopathy. There is small amount of abdominal ascites a nd mesenteric changes in the edema. The stomach grossly appears unremarkable. The small and large bowel loops demonstrate normal caliber. The abdominal aorta and IVC appear within normal limits. The bladder appears unremarkable for the degree of distention. Pelvic organ appears within normal li mits. There is no evidence of a pelvic mass or lymphadenopathy. There is no free fluid collection. There has been interval increase in right pleural effusion with atelectasis versus infiltrate in the right lung base. There is stable cardiomegaly and pericardial effusion. There is no acute osseous abnormality. There is edema in the soft tissues. IMPRESSION: 1. Interval increase in right pleural effusion with atelectasis versus infiltrate in the right lung b ase. 2. There is stable cardiomegaly with pericardial effusion. 3. Small amount of ascites and edematous changes in the mesenteries and abdominal wall soft tissues. 4. Stable 2.2 cm subcapsular lesion in the left hepatic lobe. 5. There is no evidence of a radiopaque renal calculus. There is no hydronephrosis. HS:Y
[2024-03-04] MEDS: ONDANSETRON HCL 4 MG/2 ML VIAL IV ONE (12:15)
[2024-03-04] MEDS: MORPHINE SULFATE INJ 2 MG/ml SYRG IV ONE (12:16)
--- NOTE | 2024-03-04 12:26 | ECG ---
[facility] Test Date: 2024-03-04 Test Time: 09:12:21 Pat Name: NAV JOAQUIN Department: ED Room: Gender: M Animal Chiropractor: JOSIANE : 1950 Requested By: PAULA SANARBIA Order Number: [id number] Reading MD: Measurements Intervals [place] Rate: 86 P: -14 RI: 51 QRS: 113 QRSD: 114 T: 8 QT: 441 QTc: 528 Interpretive Statements Sinus rhythm Short RI interval Probable left atrial enlargement Incomplete right bundle branch block Borderline ST depression, lateral leads Prolonged QT interval Please click the below link to view image of tracing.
--- NOTE | 2024-03-04 13:31 | DVH ---
CHEST RADIOGRAPH Indication:pleural effusion Technique: Single frontal view of the chest was obtained Comparison: XY CHEST PORTABLE on DOS: 09/28/23 FINDINGS: Lines and Tubes: None Lungs: No focal consolidation. Pleura: Small bilateral pleural effusions. No pneumothorax. Cardiomediastinal contours: Cardiomegaly. Bones: No acute osseous abnormality. IMPRESSION: Cardiomegaly with mild CHF. Small bilateral pleural effusions.
[2024-03-04 13:33] LABS: Urine Bacteria None Seen /hpf (None Seen)
[2024-03-04 13:54] LABS: Urine Blood TRACE /uL (Negative); Urine Clarity Clear (Clear); Urine Color Light-Yellow (Yellow); Urine Protein, UAD 2+ (Negative); Urine Specific Gravity 1.009 (1.001-1.035); Urine Urobilinogen Normal (Negative); Urine WBC <1 /hpf (0 - 3)
[2024-03-04 15:00] VITALS: BP 138/70; PULSE 61; RESP 12; TEMP 97.5; O2SAT 94
== END 2024-03-04 15:00 | disposition home or self-care (01) ==
LOC: EDBD 09:13 → ER 09:13
DX: I16.0 Hypertensive urgency (principal); J90 Pleural effusion, not elsewhere classified; R10.9 Unspecified abdominal pain; M79.671 Pain in right foot; M79.672 Pain in left foot; I13.2 Hypertensive heart and chronic kidney disease with heart failure and with stage 5 chronic kidney disease, or end stage renal disease; E11.22 Type 2 diabetes mellitus with diabetic chronic kidney disease; N18.6 End stage renal disease; I50.9 Heart failure, unspecified; E78.5 Hyperlipidemia, unspecified; Z98.890 Other specified postprocedural states; Z79.899 Other long term (current) drug therapy; Z99.2 Dependence on renal dialysis
CPT/HCPCS: 36415; 71045; 74176; 80048; 80076; 81001; 82962; 85025; 87086; 87088; 87186; 93005; 96374; 96375; 99285; J2270; J2405; J7030

== ENCOUNTER 2024-04-04 18:48 | Inpatient (IN) | payer MEDICAID ==
[~2024-04-04] VITALS: Ht 167.6 cm; Wt 67.4 kg
[~2024-04-04 18:48] MED LIST changes: +AMLO1TAB21 PO; +BRIM1SOL OP; +DORZ2SOL18 OP; +LATA0.0020 OP
--- NOTE | 2024-04-04 19:01 | ED.PDOC ---
GI ASSESSMENT HPI Comments HPI: Poor Historian. 73-year-old male brought in by ambulance from home for evaluation of one day history of left-sided abdominal pain with the associated nausea and vomiting nonbilious nonbloody. Patient is nonambulatory. Patient missed his dialysis session today. EMS states that the patient fell four days ago however he was doing fine the 1st couple of days after the fall but today he started complaining of the above. Past Medcial History: Renal failure on dialysis Thursday Past Surgical History: Below-knee amputation left lower extremity REVIEW OF SYSTEMS: CONSTITUTIONAL: Denies acute: fever, diaphoresis, chills, generalized weakness. HEAD: Denies acute: headache, photophobia Eyes: Denies acute: Double vision, vision loss, eye pain, eye discharge. EARS: Denies acute: tinnitus, hearing loss, ear discharge, ear pain, THROAT: Denies acute: sore throat, swelling, difficulty swallowing , pain with swallowing, change in voice. NECK: Denies acute: neck pain, neck swelling, stiff neck. HEART: Denies acute : chest pain, palpitations, LUNGS: Denies acute: SOB, wheezing, cough, hemoptysis ABDOMEN: Denies acute: diarrhea, melena , hematemesis, hematochezia SKIN: Denies acute: rash, redness, lesions, itchiness. EXTREMITIES: Denies acute: calf pain, numbness, tingling, weakness, denies pain in extremity. Neuro: Denies acute: focal neurological deficit, motor or sensory focal neurological deficit, tremors, seizure like activity, confusion, dizziness, change in mental status, loss of bowel or bladder function, cauda equina like symptoms. : Denies acute: dysuria, hematuria, flank pain, increase in urinary frequency. PSYCH: Denies acute: hallucination, suicidal ideation, homicidal ideation. PHYSICAL EXAM: General: mild acute distress, awake and alert. Head: normocephalic, atraumatic. Neck: supple, trachea is midline, no swelling. Throat: Normal phonation. Eyes:, no erythema, no purulent discharge, no proptosis, no icterus. Patient is blind Heart: regular rate, regular rhythm, no significant murmur appreciated. Lungs: no apparent respiratory distress, Able to speak in full sentences. No wheezing, no rhonchi, no crackles. No stridors Clear to auscultation bilaterally. Abdomen: Left lower quadrant tender to palpation, non distended, soft, no guarding, no rebound, + bowel sounds. Evaluation of the mid and lower back is noted some left large area vision/ecchymosis consistent with a recent fall. There is also a focal area of hematoma that is tender to palpation. No apparent crepitus. Neuro: Awake, Alert, oriented to name, self, situation, follows commands GCS=15. Speech is normal. Skin: no petechia, no purpura, no cyanosis, non-pale, not jaundice. Lower extremities: --trace - Pitting edema no deformity, no focal swelling, no calf TTP. Makes eye contact. Face: no apparent facial droop. Time Seen by MD: 18:57 Primary Care Provider: NONE Reviewed Notes: Nurses Notes, Pathology Specialist Notes, Medications, Allergies Allergies: Coded Allergies: NO KNOWN ALLERGIES (Unverified , 09/28/23) Home Meds Active Scripts Doxycycline Monohydrate (Doxycycline Monohydrate) 100 Mg Cap, 1 CAP PO BID for 7 Days, #14 CAP Prov:JOVANNA ALANIZ FOWL BLOOD TESTER 03/01/24 Reported Medications Atorvastatin Calcium (Lipitor) 20 Mg Tab, 1 TAB PO DAILY, #90 TAB 1 Refill 09/29/23 Acetaminophen (Acetaminophen) 325 Mg Tab, 650 MG PO TIDP PRN for PAIN SCALE 1 THRU 6 for 30 Days, MG 0 Refills 09/29/23 Amlodipine Besylate (Amlodipine Besylate) 5 Mg Tab, 5 MG PO DAILY for 30 Days, MG 09/29/23 Calcium Acetate (Phosphate Bin (Calcium Acetate) 667 Mg Cap, 667 MG PO TIDWM for 30 Days, MG 09/29/23 Losartan Potassium (Losartan Potassium) 50 Mg Tab, 50 MG PO BID for 30 Days, MG 09/29/23 Aspirin (Aspirin Low Dose) 81 Mg Tab, 1 TAB PO DAILY 09/29/23 Information Source: Patient, Emergency Med Personnel Past Medical History PAST MEDICAL HISTORY: CHF, DM, ESRD, High Lipids, HTN Surgical History: BKA, Hernia Repair Family History Family History: Reviewed,noncontributory to illness Social History Smoker: Non-Smoker Alcohol: Denies ETOH Use Drugs: Denies Drug Use Lives In: Home X-Ray, Labs, Meds, VS Vital Signs Date Time Temp Pulse Resp B/P (MAP) Pulse Ox O2 Delivery O2 Flow Rate FiO2 04/04/24 18:58 98.9 99 20 196/89 (124) 94 Lab Test 04/04/24 19:48 Range/Units White Blood Count 8.4 4.4-10.8 10^3/uL Red Blood Count 2.90 L 4.5-5.90 10^6/uL Hemoglobin 9.8 L 13.5-17.5 g/dL Hematocrit 28.5 L 41.0-53.0 % Mean Corpuscular Volume 98.5 80.0-100.0 fL Mean Corpuscular Hemoglobin 34.0 H 28.0-32.0 pg Mean Corpuscular Hemoglobin Concent 34.5 32.0-36.0 g/dL Red Cell Distribution Width 15.2 H 11.8-14.3 % Platelet Count 156 140-450 10^3/uL Mean Platelet Volume 8.9 6.9-10.8 fL Neutrophils (%) (Auto) 85.1 H 37.0-80.0 % Lymphocytes (%) (Auto) 7.4 L 10.0-50.0 % Monocytes (%) (Auto) 7.4 0.0-12.0 % Eosinophils (%) (Auto) 0.0 0.0-7.0 % Basophils (%) (Auto) 0.1 0.0-2.0 % Neutrophils # (Auto) 7.1 1.6-8.6 10 ^3/uL Lymphocytes # (Auto) 0.6 0.4-5.4 10 ^3/uL Monocytes # (Auto) 0.6 0-1.3 10 ^3/uL Eosinophils # (Auto) 0 0-0.8 10 ^3/uL Basophils # (Auto) 0 0-0.2 10 ^3/uL Nucleated Red Blood Cells 0.1 % Sodium Level 139 136-145 mmol/L Potassium Level 4.9 3.5-5.1 mmol/L Chloride Level 99 98-107 mmol/L Carbon Dioxide Level 26 20-31 mmol/L Anion Gap 14 5-15 Blood Urea Nitrogen 50 H 9-23 mg/dL Creatinine 6.23 H 0.700-1.30 mg/dL Glomerular Filtration Rate Calc 9 >90 mL/min BUN/Creatinine Ratio 8.0 L 10.0-20.0 Serum Glucose 157 H 74-106 mg/dL Lactic Acid Level 3.5 *H 0.4-2.0 mmol/L Calcium Level 9.7 8.7-10.4 mg/dL Magnesium Level 1.8 1.6-2.6 mg/dL Total Bilirubin 1.1 H 0.2-1.0 mg/dL Aspartate Amino Transferase (AST) 28 13-40 U/L Alanine Aminotransferase (ALT) 24 7-40 U/L Alkaline Phosphatase 108 46-116 U/L Creatine Kinase 199 H 46-171 U/L B-Type Natriuretic Peptide > 5000.00 0-100 pg/mL Total Protein 6.7 5.7-8.2 g/dL Albumin 4.1 3.2-4.8 g/dL Lipase 37 12-53 U/L Thyroid Stimulating Hormone (TSH) 2.38 0.55-4.78 uIU/mL Plasma/Serum Blood Alcohol < 3.0 <10 mg/dL [place] [id number] Ph: [phone] DIAGNOSTIC IMAGING Diagnostic Imaging Report : [id number] Signed PATIENT: ERIKA REAVESUROACCT: [id number] UNIT: [id number] : 1950 LOC: ER ROOM / BED: / AGE / SEX: 73 / M ADM STATUS: REG ER SERVICE 56 ORDERING PHYSICIAN: GOMEZ WARNER DO PROCEDURE(s): ABPL - CT AB PEL WO CON-NO ORAL OR IV REASON: L abd pain ORDER NUMBER(s): [id number], ACCESSION NUMBER(s): [id number] Exam: CT CT AB PEL WO CON-NO ORAL OR IV History: L abd pain Comparison Study: None available at time of dictation. Technique: Multidetector spiral CT of the abdomen was performed from lung bases to pubic symphysis. Imaging was performed without IV contrast. Axial, coronal and sagittal multiplanar reformats were obtained from the axial data set by the technologist. Radiation Dose : 1. Abdomen/Pelvis: CTDIvol 16 mGy, DLP 850 mGy*cm. Findings: Evaluation of solid organs is limited due to lack of intravenous contrast use. Lung Bases: Moderate left and mild right pleural effusions. Moderate pericardial effusion. Severe calcification of the coronary vessels. Liver: The liver is normal in size. No focal lesions. Gallbladder and Biliary Tree: Unremarkable Spleen: Unremarkable Pancreas: The pancreas is grossly normal in appearance. Adrenal Glands: Unremarkable Kidneys: Kidneys are grossly normal without calculi or hydronephrosis. Bladder: Grossly unremarkable for degree of distention. Bowel: The stomach is grossly normal in appearance. Small bowel and colon are normal in caliber and distribution. The appendix is not visualized; however, no secondary findings of acute appendicitis identified. Ascites: Trace diffuse ascites. Lymphadenopathy: No mesenteric, retroperitoneal or periportal lymphadenopathy. Abdominal Wall and Mesentery: Unremarkable. Vasculature: The visualized abdominal aorta is normal in size and caliber. Evaluation of abdominal and pelvic vessels is limited due to lack of intravenous contrast. Moderate to severe vascular calcification throughout the abdomen and its branching arteries. Pelvic Organs: Unremarkable Musculoskeletal: Displaced fracture of the left L1 transverse process. Fractures of the posterior left 12th and 11th ribs 4 area sensory tremulous icy.. Asymmetric swelling of the left paraspinal musculature at the level of the lower thoracic spine extending to the lumbar spine. IMPRESSION: Fractures of the left posterior 11th and 12th ribs as well as the left transverse process at L1. There is associated edema and hematoma in the left posterior paraspinal musculature extending from the lower thoracic spine to the lumbar spine. Fluid overload state as evidenced by mild cardiomegaly, pericardial effusion, bilateral pleural effusions, trace diffuse ascites, and anasarca. ATED BY: ELIZ SOLER DO DICTATED DATE/TIME: 04/04/242005 SIGNED BY: ELIZ SOLER DO SIGNED DATE/TIME: 04/04/242005 CC: Departure Time of Disposition: 20:15 Disposition: 09 ADMITTED INPATIENT Diagnosis: L back pain, rib fx, L1 transverse process Fx. Condition: Guarded GOMEZ WARNER Apr 04, 2024 19:01
--- NOTE | 2024-04-04 20:08 | DVH ---
Exam: CT CT AB PEL WO CON-NO ORAL OR IV History: L abd pain Comparison Study: None available at time of dictation. Technique: Multidetector spiral CT of the abdomen was performed from lung bases to pubic symphysis. Imaging was performed without IV contrast. Axial, coronal and sagittal multiplanar reformats were ob tained from the axial data set by the technologist. Radiation Dose : 1. Abdomen/Pelvis: CTDIvol 16 mGy, DLP 850 mGy*cm. Findings: Evaluation of solid organs is limited due to lack of intravenous contrast use. Lung Bases: Moderate left and mild right pleural effusions. Moderate pericardial effusion. Severe ca lcification of the coronary vessels. Liver: The liver is normal in size. No focal lesions. Gallbladder and Biliary Tree: Unremarkable Spleen: Unremarkable Pancreas: The pancreas is grossly normal in appearance. Adrenal Glands: Unremarkable Kidneys: Kidneys are grossly normal without calculi or hydronephrosis. Bladder: Grossly unremarkable for degree of distention. Bowel: The stomach is grossly normal in appearance. Small bowel and colon are normal in caliber and d istribution. The appendix is not visualized; however, no secondary findings of acute appendicitis id entified. Ascites: Trace diffuse ascites. Lymphadenopathy: No mesenteric, retroperitoneal or periportal lymphadenopathy. Abdominal Wall and Mesentery: Unremarkable. Vasculature: The visualized abdominal aorta is normal in size and caliber. Evaluation of abdominal a nd pelvic vessels is limited due to lack of intravenous contrast. Moderate to severe vascular calcifi cation throughout the abdomen and its branching arteries. Pelvic Organs: Unremarkable Musculoskeletal: Displaced fracture of the left L1 transverse process. Fractures of the posterior lef t 12th and 11th ribs 4 area sensory tremulous icy.. Asymmetric swelling of the left paraspinal muscul ature at the level of the lower thoracic spine extending to the lumbar spine. IMPRESSION: Fractures of the left posterior 11th and 12th ribs as well as the left transverse process at L1. The re is associated edema and hematoma in the left posterior paraspinal musculature extending from the l ower thoracic spine to the lumbar spine. Fluid overload state as evidenced by mild cardiomegaly, pericardial effusion, bilateral pleural effus ions, trace diffuse ascites, and anasarca.
[2024-04-04 20:31] LABS: Basophils # (auto) 0 10 ^3/uL (0-0.2); Basophils % (auto) 0.1 % (0.0-2.0); Eosinophils # (auto) 0 10 ^3/uL (0-0.8); Hematocrit 28.5 % (41.0-53.0); Hemoglobin 9.8 g/dL (13.5-17.5); Lymphocytes # (auto) 0.6 10 ^3/uL (0.4-5.4); Lymphocytes % (auto) 7.4 % (10.0-50.0); Mean Corpuscular Hgb Conc. 34.5 g/dL (32.0-36.0); Mean Corpuscular Volume 98.5 fL (80.0-100.0); Monocytes # (auto) 0.6 10 ^3/uL (0-1.3); Monocytes % (auto) 7.4 % (0.0-12.0); Neutrophils # (auto) 7.1 10 ^3/uL (1.6-8.6); Neutrophils % (auto) 85.1 % (37.0-80.0); Nucleated Red Blood Cells % 0.1 %; Platelet Count (auto) 156 10^3/uL (140-450); Red Cell Distribution Width 15.2 % (11.8-14.3); White Blood Cell 8.4 10^3/uL (4.4-10.8)
[2024-04-04] MEDS ORDERED: NITROGLYCERIN 0.4 MG SL TAB SL PRN (20:45)
[2024-04-04] MEDS ORDERED: DOCUSATE SOD 100 MG CAP PO PRN (20:45)
[2024-04-04] MEDS ORDERED: MORPHINE SULFATE INJ 2 MG/ml SYRG IV PRN ×2 (20:45)
[2024-04-04] MEDS ORDERED: ONDANSETRON HCL 4 MG/2 ML VIAL IV PRN (20:45)
[2024-04-04 20:56] LABS: Alanine Aminotransferase 24 U/L (7-40); Albumin 4.1 g/dL (3.2-4.8); Alkaline Phosphatase 108 U/L (46-116); Anion Gap 14 (5-15); Aspartate Aminotransferase 28 U/L (13-40); Calcium 9.7 mg/dL (8.7-10.4); Carbon Dioxide 26 mmol/L (20-31); Chloride 99 mmol/L (98-107); Potassium 4.9 mmol/L (3.5-5.1); Sodium 139 mmol/L (136-145)
[2024-04-04 20:57] LABS: Bilirubin, Total 1.1 mg/dL (0.2-1.0); Total Protein 6.7 g/dL (5.7-8.2)
[2024-04-04 20:58] LABS: Blood Urea Nitrogen 50 mg/dL (9-23); Glucose 157 mg/dL (74-106)
[2024-04-04 20:59] LABS: Lactic Acid w/Reflex 3.5 mmol/L (0.4-2.0)
[2024-04-04 21:08] LABS: Lipase 37 U/L (12-53)
[2024-04-04] MEDS ORDERED: DEXTROSE (50%) 50ML SYRG IV PRN (21:15)
[2024-04-04] MEDS: ACCU-CHEK COMFORT CURVE STRIP VI SCH (22:00)
[2024-04-04] MEDS: InsuLIN REG 1unit/0.01ml Soln (100units/ml) SC SCH (22:00)
[2024-04-04 22:25] LABS: Magnesium 1.8 mg/dL (1.6-2.6)
[2024-04-04 22:31] LABS: Creatine Kinase IFCC 199 U/L (46-171)
[2024-04-04 23:00] LABS: Blood Alcohol < 3.0 mg/dL (<10)
--- NOTE | 2024-04-04 23:01 | DVHHPRES ---
History of Present Illness Resident Creating Document: FIFI POTTER RESIDENT History of Present Illness Patient is 73 years old male with past medical history of ESRD on hemodialysis Thursday/Thursday/Thursday, CHF, hypertension, diabetes mellitus type 2, hyperlipidemia, anemia of chronic disease was brought into the ER due to left- sided abdominal pain. As per patient he had a fall yesterday at home at daughter's house when he was trying to go to the restroom, he tripped over and fell and hurt his left side of the body. Patient could not recall if he hit his head on not. Patient reported pain as sharp, 10/10, increased with movement, some relief with pain medication. Patient also endorsed nausea but no vomiting. Patient denied any dysuria, diarrhea, chest pain or shortness of breath, dysarthria. On arrival blood pressure was 196/89, pulse 85, respiration 15, patient was breathing room air. Initial lab workup revealed Elevated BNP >5000, moderate anemia with a hemoglobin 9.8, elevated BUN 50, elevated serum creatinine 6.23, low GFR 9, blood sugar 157, lactic acid 3.5, bilirubin 1.1. Other lab workup with a normal limit. CT abdomen and pelvis revealed-Fractures of the left posterior 11th and 12th ribs as well as the left transverse process at L1. There is associated edema and hematoma in the left posterior paraspinal musculature extending from the lower thoracic spine to the lumbar spine. Fluid overload state as evidenced by mild cardiomegaly, pericardial effusion, bilateral pleural effusions, trace diffuse ascites, and anasarca. Patient noted to have bruise on the left lower abdomen, on the left lower back including buttock and also hematoma on the left side of the mid back. Past Medical History hemodialysis Thursday/Thursday/Thursday, CHF, hypertension, diabetes mellitus type 2, hyperlipidemia, anemia of chronic disease Past Surgical History Left below-knee amputation, hernia repair Past Social History Lives with daughter at home, denies smoking/alcoholism/drug abuse Review of Systems Review of Systems Allergy- NKDA Personal History/ Social History- Patient was seen today at the bedside. Cardiovascular- deny acute chest pain or shortness of breath or cough or palpitation Respiratory- denies cough or short of breath or wheezing Gastrointestinal- denies any rectal bleeding, Musculoskeletal-denies acute joint swelling or tenderness or redness Neurological- denies acute dysarthria, dysphagia, change in vision Psychiatry- denies depression or SI or HI Skin- bruise on the skin Allergies: Coded Allergies: NO KNOWN ALLERGIES (Unverified , 09/28/23) Medications Current Medications Medications Dose Ordered Sig/Vnae Route Start Time Stop Time Status Last Admin Dose Admin Ondansetron HCl 4 mg Q4HP PRN IV 04/04/24 20:45 Docusate Sodium 100 mg BIDPRN PRN PO 04/04/24 20:45 Acetaminophen 650 mg Q6HP PRN PO 04/04/24 20:45 Morphine Sulfate 2 mg Q4HPRN PRN IV 04/04/24 20:45 Nitroglycerin 0.4 mg Q5MINP PRN SL 04/04/24 20:45 Morphine Sulfate 2 mg Q30M PRN IV 04/04/24 20:45 Hydralazine HCl 10 mg Q6HP PRN IV 04/04/24 21:15 Diagnostic Test (Pha) 1 strip ACHS 04/04/24 22:00 Insulin Human Regular ACHS SC 04/04/24 22:00 Dextrose 50 ml UD PRN IV 04/04/24 21:15 Amlodipine Besylate 5 mg DAILY PO 04/05/24 10:00 Aspirin 81 mg DAILY PO 04/05/24 10:00 Atorvastatin Calcium 20 mg DAILY PO 04/05/24 10:00 Exam Vital Signs Vital Signs Date Time Temp Pulse Resp B/P (MAP) Pulse Ox O2 Delivery O2 Flow Rate FiO2 04/04/24 18:58 98.9 99 20 196/89 (124) 94 Exam General examination- patient awake, alert, oriented, HEENT- PEERLA, no acute nasal discharge Cardiovascular- S1-S2 audible, rate and rhythm regular, no murmur Respiratory- CTAB, no wheeze or rhonchi Gastrointestinal-upper abdominal tenderness+,, bowel sound+. Nondistended Musculoskeletal-no acute joint swelling or tenderness or redness# Lower extremity- Neurological- patient with very diminished vision Psychiatry- denies depression or SI or HI Skin- fragile skin, bruise on the left lower abdomen, left lower back including left buttock, , hematoma on the left side of the mid spinal column Labs/Xrays Labs Test 04/04/24 22:32 04/04/24 19:48 Range/Units White Blood Count 8.4 4.4-10.8 10^3/uL Red Blood Count 2.90 L 4.5-5.90 10^6/uL Hemoglobin 9.8 L 13.5-17.5 g/dL Hematocrit 28.5 L 41.0-53.0 % Mean Corpuscular Volume 98.5 80.0-100.0 fL Mean Corpuscular Hemoglobin 34.0 H 28.0-32.0 pg Mean Corpuscular Hemoglobin Concent 34.5 32.0-36.0 g/dL Red Cell Distribution Width 15.2 H 11.8-14.3 % Platelet Count 156 140-450 10^3/uL Mean Platelet Volume 8.9 6.9-10.8 fL Neutrophils (%) (Auto) 85.1 H 37.0-80.0 % Lymphocytes (%) (Auto) 7.4 L 10.0-50.0 % Monocytes (%) (Auto) 7.4 0.0-12.0 % Eosinophils (%) (Auto) 0.0 0.0-7.0 % Basophils (%) (Auto) 0.1 0.0-2.0 % Neutrophils # (Auto) 7.1 1.6-8.6 10 ^3/uL Lymphocytes # (Auto) 0.6 0.4-5.4 10 ^3/uL Monocytes # (Auto) 0.6 0-1.3 10 ^3/uL Eosinophils # (Auto) 0 0-0.8 10 ^3/uL Basophils # (Auto) 0 0-0.2 10 ^3/uL Nucleated Red Blood Cells 0.1 % Sodium Level 139 136-145 mmol/L Potassium Level 4.9 3.5-5.1 mmol/L Chloride Level 99 98-107 mmol/L Carbon Dioxide Level 26 20-31 mmol/L Anion Gap 14 5-15 Blood Urea Nitrogen 50 H 9-23 mg/dL Creatinine 6.23 H 0.700-1.30 mg/dL Glomerular Filtration Rate Calc 9 >90 mL/min BUN/Creatinine Ratio 8.0 L 10.0-20.0 Serum Glucose 157 H 74-106 mg/dL Calcium Level 9.7 8.7-10.4 mg/dL Magnesium Level 1.8 1.6-2.6 mg/dL Total Bilirubin 1.1 H 0.2-1.0 mg/dL Aspartate Amino Transferase (AST) 28 13-40 U/L Alanine Aminotransferase (ALT) 24 7-40 U/L Alkaline Phosphatase 108 46-116 U/L Creatine Kinase 199 H 46-171 U/L B-Type Natriuretic Peptide > 5000.00 0-100 pg/mL Total Protein 6.7 5.7-8.2 g/dL Albumin 4.1 3.2-4.8 g/dL Lipase 37 12-53 U/L Thyroid Stimulating Hormone (TSH) 2.38 0.55-4.78 uIU/mL Assessment/Plan Assessment/Plan #Acute Hypoxic Respiratory Failure likely due to CHF -BNP>5000 -c/w Lasix 40 mh bid -Ordered Cardiology consult -Pending ECHO 2D # hypertensive emergency -BNP> 5000 -continue amlodipine 5 mg daily -continue hydralazine 10 mg IV q.6h p.r.n. -monitor blood pressure #Pain in the left side of the abdomen likely due to rib fracture due to fall - CT abdomen and pelvis revealed-Fractures of the left posterior 11th and 12th ribs as well as the left transverse process at L1. -There is associated edema and hematoma in the left posterior paraspinal musculature extending from the lower thoracic spine to the lumbar spine. -Fluid overload state as evidenced by mild cardiomegaly, pericardial effusion, bilateral pleural effusions, trace diffuse ascites, and anasarca. # Fractures of the left posterior 11th and 12th ribs as well as the left transverse process at L1 - CT abdomen and pelvis revealed-Fractures of the left posterior 11th and 12th ribs as well as the left transverse process at L1. -continue with the pain management as prescribed # bruise on the left lower abdomen, left lower back including left buttock likely from fall -ordered wound consult # Acute exacerbation of CHF -Lasix 40 mg IV b.i.d. --Ordered Cardiology consult -Pending ECHO 2D #Rhabdomyolysys -CK-199 -contunue current management # diabetes mellitus type 2, -continue insulin sliding scale as prescribed #hyperlipidemia -continue atorvastatin 20 mg q.h.s. # ESRD on hemodialysis -patient gets hemodialysis on Thursday/Thursday/Thursday # lactic acidosis -continue current management #pericardial effusion -pending echo 2D -continue current management #bilateral pleural effusions Continue current management # trace diffuse ascites -continue current management # history of fall at home -fall precaution -ordered social service consult for safety check at home Goals of care/advance care planning; FULL CODE; discussed with the patient >15 minutes PUD prophylaxis: Pantoprazole DVT prophylaxis: Patient with bruises Plan discussed with Dr. Morris, nursing staff, patient Total time spent on patient evaluation, chart review, assessment and plan, discussion discussion >30 minutes Plan discussed with: Patient Plan discussed with: Patient, Other (RN) My Orders Orders - FIFI POTTER RESIDENT Procedure Category Date Status Time Admit ADMIT 04/04/24 Transmitted 20:42 Code Status CODE 04/04/24 Transmitted 20:42 Renal DIET 04/05/24 Transmitted Standard(2gna,3gk,Lopho) Breakfast Ondansetron Hcl PHA 04/04/24 In Process (Zofran) 20:45 Docusate Sodium PHA 04/04/24 In Process Capsule (Colace 20:45 Morphine Sulfate PHA 04/04/24 In Process Injection 20:45 Nitroglycerin PHA 04/04/24 In Process Sublingual (Ntrostat 20:45 Morphine Sulfate PHA 04/04/24 In Process Injection 20:45 Oxygen By Nasal RT 04/04/24 Transmitted Cannula 20:42 Stat Ekg For Chest HALIMA 04/04/24 In Process Pain 20:42 Notify Md Of Changes [facility] 04/04/24 In Process From Base 20:42 Marine Pilot For HALIMA 04/04/24 In Process 24 Hours 20:42 Emergency Dysrhythmia [facility] 04/04/24 In Process Protocol 20:42 Rhythm Strips Once HALIMA 04/04/24 In Process Every Shift 20:42 Magnesium LAB 04/04/24 In Process 20:42 Drug Screen LAB 04/04/24 Logged 20:42 Blood Alcohol LAB 04/04/24 In Process 20:42 Cardiac DIET 04/05/24 Verified Diet-2gna,Lofat,Lochol Breakfast Acetaminophen Tablet PHA 04/04/24 In Process (Tylenol Tablet) 20:45 Complete Blood Count LAB 04/05/24 Verified 04:00 Comprehensive LAB 04/05/24 Verified Metabolic Panel 04:00 Hydralazine Injection PHA 04/04/24 In Process (Apresoline Inject 21:15 Glucose Blood PHA 04/04/24 In Process (Accu-Chek Comfort 22:00 Insulin R (Human) PHA 04/04/24 In Process (Insulin R) 22:00 Dextrose 50% Syringe PHA 04/04/24 In Process 21:15 Amlodipine Tablet PHA 04/05/24 In Process (Norvasc Tablet) 10:00 Aspirin Enteric PHA 04/05/24 In Process Coated Tablet 10:00 Atorvastatin (Lipitor) PHA 04/05/24 In Process 10:00 Creatine Kinase LAB 04/04/24 In Process 19:48 Date of Service: Apr 04, 2024 Billing Provider: TONYA MORRIS MD Common Visit Codes: 95144-[id number] INP/OBS CARE (HIGH) Secondary Visit Codes: [id number] CARE PLAN 30 MINUTES FIFI POTTER RESIDENT Apr 04, 2024 23:00 TONYA MORRIS MD Apr 05, 2024 11:06
[2024-04-05] MEDS: FUROSEMIDE 20 MG/2 ML VIAL IV SCH ×2 (01:45→08:45)
[2024-04-05 03:00] VITALS: PULSE 85; RESP 15; O2SAT 95
[2024-04-05] MEDS: hydrALAZINE HCL 20 MG/ML VL IV ONE ×2 (03:39→08:46)
[2024-04-05] MEDS: FUROSEMIDE 20 MG/2 ML VIAL IV ONE (03:39)
--- NOTE | 2024-04-05 04:31 | DVH ---
CT HEAD WITHOUT CONTRAST INDICATION: h/o fall at home EXAM DATE: 04/05/2024 12:37 AM COMPARISON: CT HEAD WITHOUT CONTRAST on DOS: 01/30/24 RADIATION DOSE: CTDIvol: 63.65 mGy, DLP: 1147.34 mGy*cm PROCEDURE: CT scans of the head were obtained from the vertex to the skull base. Sagittal and coronal reconstructions were provided. All CT scans at this medical facility are performed using dose modulation techniques as appropriate t o a performed exam including the following: Automated exposure control was utilized; adjustment of th e MA and/or KV according to patient size; and use of iterative reconstruction technique. FINDINGS: Posterior fossa demonstrates a 4th ventricle midline without mass impression. The ventricles appear appropriate in size and symmetry. Moderate periventricular white matter hypodensities suggest chroni c small vessel ischemic change. Cavum septum pellucidum. No evidence of acute intracranial hemorrhage , midline shift, or mass. Chronic appearing bilateral thalamic lacunar infarcts, similar to prior exa mination. Paranasal sinuses are relatively well aerated with mild mucosal sinus thickening on the lef t. Partially empty sella. The calvarium appears grossly intact. IMPRESSION: 1. Chronic changes without acute finding.
[2024-04-05 05:05] LABS: Urine Bacteria FEW /hpf (None Seen); Urine Blood 2+ /uL (Negative); Urine Clarity Clear (Clear); Urine Color Yellow (Yellow); Urine Hyaline Cast FEW /lpf (0 - 2); Urine Protein, UAD 3+ (Negative); Urine Specific Gravity 1.016 (1.001-1.035); Urine Urobilinogen 2 mg/dL (Negative); Urine WBC 1 /hpf (0 - 3); Urine pH 7.5 (5.0-9.0)
[2024-04-05 05:12] LABS: Amphetamine Screen, Urine Neg (NEGATIVE); Barbiturate Scree,Urine Neg (NEGATIVE); Benzodiazephine Screen, Urine Neg (NEGATIVE); Cannabinoid Screen, Urine Neg (NEGATIVE); Cocaine Screen, Urine Neg (NEGATIVE); Opiate Scree,Urine Neg (NEGATIVE); Phencyclidine Screen, Urine Neg (NEGATIVE)
[2024-04-05 05:22] LABS: Basophils # (auto) 0 10 ^3/uL (0-0.2); Basophils % (auto) 0.3 % (0.0-2.0); Eosinophils # (auto) 0 10 ^3/uL (0-0.8); Hematocrit 28.7 % (41.0-53.0); Hemoglobin 9.9 g/dL (13.5-17.5); Lymphocytes # (auto) 0.9 10 ^3/uL (0.4-5.4); Lymphocytes % (auto) 8.9 % (10.0-50.0); Mean Corpuscular Hemoglobin 33.9 pg (28.0-32.0); Mean Corpuscular Hgb Conc. 34.5 g/dL (32.0-36.0); Mean Corpuscular Volume 98.2 fL (80.0-100.0); Monocytes # (auto) 0.8 10 ^3/uL (0-1.3); Monocytes % (auto) 7.8 % (0.0-12.0); Neutrophils # (auto) 8.3 10 ^3/uL (1.6-8.6); Platelet Count (auto) 167 10^3/uL (140-450); Red Blood Cells 2.92 10^6/uL (4.5-5.90)
[2024-04-05 05:29] LABS: INR 1.51 (0.9-1.15); Prothrombin Time 15.5 sec (9.3-11.8)
[2024-04-05 05:33] LABS: Albumin 4.1 g/dL (3.2-4.8); Alkaline Phosphatase 104 U/L (46-116); Anion Gap 13 (5-15); BUN/Creatinine Ratio 7.9 (10.0-20.0); Calcium 9.5 mg/dL (8.7-10.4); Carbon Dioxide 25 mmol/L (20-31); Chloride 101 mmol/L (98-107); Magnesium 1.8 mg/dL (1.6-2.6); Potassium 4.7 mmol/L (3.5-5.1); Sodium 139 mmol/L (136-145)
[2024-04-05 05:34] LABS: Bilirubin, Total 1.1 mg/dL (0.2-1.0); Total Protein 6.9 g/dL (5.7-8.2)
--- NOTE | 2024-04-05 05:46 | DVH ---
CHEST RADIOGRAPH Indication: CHF/PNA Technique: Frontal and lateral view of the chest was obtained Comparison: None FINDINGS: Lines and Tubes: None Lungs: Increased multifocal airspace disease. Pleura: No effusion. No pneumothorax. Cardiomediastinal contours: Unremarkable Bones: Unremarkable IMPRESSION: Increased multifocal airspace disease.
[2024-04-05 05:50] LABS: Alanine Aminotransferase 44 U/L (7-40); Aspartate Aminotransferase 56 U/L (13-40); Blood Urea Nitrogen 52 mg/dL (9-23); Glucose 143 mg/dL (74-106)
[2024-04-05] MEDS ORDERED: FUROSEMIDE 20 MG/2 ML VIAL IV SCH ×2 (06:00→07:30)
[2024-04-05 07:25] VITALS: PULSE 88; RESP 19; O2SAT 96
[2024-04-05] MEDS: amLODIPine BESYLATE 5 MG TAB PO ONE (08:44)
[2024-04-05 09:10] LABS: Lactic Acid w/Reflex 2.4 mmol/L (0.4-2.0)
[2024-04-05] MEDS: amLODIPine BESYLATE 5 MG TAB PO SCH (10:00)
[2024-04-05] MEDS ORDERED: ASPirin-EC 81 mg tab PO SCH (10:00)
[2024-04-05] MEDS ORDERED: LOSARTAN POTASSIUM 25 MG TAB PO SCH ×2 (10:00)
[2024-04-05] MEDS: ATORVASTATIN 20 MG TAB PO SCH (11:08)
[2024-04-05] MEDS: LOSARTAN POTASSIUM 25 MG TAB PO SCH (11:08)
[2024-04-05] MEDS: SEVELAMER 800 MG TAB PO SCH (13:30)
--- NOTE | 2024-04-05 16:14 | DVHCONRES ---
Date Seen: Apr 05, 2024 Resident Creating Document: PANFILO ROMAN RESIDENT Referring Physician Reason for Consultation CKD History of Present Illness Patient is 73-year-old male with known medical history of ESRD on hemodialysis receiving dialysis on Thursday and Thursday, CHF, hypertension, diabetes mellitus, hyperlipidemia and anemia came to the hospital with a chief complaint of syncopal episode and recent fall where he tripped over and hit his left sided body. Patient denied any other symptoms and he mentioned that he missed his dialysis. With further evaluation hospital patient found to have fracture of left posterior 11th and 12th ribs multiple bruises and sacral erythematous skin. Nephrology consultation has been done for management of ESRD. Patient denying any other complaints at this point. Past Medical History Hypertension, diabetes mellitus type 2, hyperlipidemia, ESRD on hemodialysis, CHF, anemia on chronic disease. Past Surgical History As per HPI Family History: Patient reports no known family medical history. Allergies: Coded Allergies: NO KNOWN ALLERGIES (Unverified , 09/28/23) Home Meds Reported Medications Dorzolamide-Timolol (Dorzolamide Hcl/Timolol M) 1 Ml Lj, 1 ML OP UD for 90 Days, #10 04/05/24 Latanoprost (Xalatan) 0.005 % Lj, 0.005 % OP UD for 25 Days, #2.5 04/05/24 Brimonidine Tartrate-Timolol M (Brimonidine Tartrate/Paul 0.2-0.5 %) 1 Lj Lj, 1 LJ OP UD for 18 Days, #5 04/05/24 Amlodipine Besylate (Amlodipine Besylate) 2.5 Mg Tab, 1 TAB PO DAILY for 90 Days, #90 04/05/24 Atorvastatin Calcium (Lipitor) 20 Mg Tab, 1 TAB PO DAILY, #90 TAB 1 Refill 09/29/23 Acetaminophen (Acetaminophen) 325 Mg Tab, 650 MG PO TIDP PRN for PAIN SCALE 1 THRU 6 for 30 Days, MG 0 Refills 09/29/23 Calcium Acetate (Phosphate Bin (Calcium Acetate) 667 Mg Cap, 667 MG PO TIDWM for 30 Days, MG 09/29/23 Losartan Potassium (Losartan Potassium) 50 Mg Tab, 1 TAB PO BID for 90 Days, #180 09/29/23 Aspirin (Aspirin Low Dose) 81 Mg Tab, 1 TAB PO DAILY 09/29/23 Discontinued Reported Medications Amlodipine Besylate (Amlodipine Besylate) 5 Mg Tab, 5 MG PO DAILY for 30 Days, MG 09/29/23 Current Medications Current Medications Medications (Trade) Dose Ordered Sig/Vane Route PRN Reason Start Time Stop Time Status Last Admin Ondansetron HCl (Zofran) 4 mg Q4HP PRN IV NAUSEA / VOMITING 04/04/24 20:45 Docusate Sodium (Colace Capsule) 100 mg BIDPRN PRN PO FOR CONSTIPATION 04/04/24 20:45 Acetaminophen (Tylenol Tablet) 650 mg Q6HP PRN PO PAIN SCALE 1-3 OR TEMP>100.4 04/04/24 20:45 Morphine Sulfate 2 mg Q4HPRN PRN IV SEVERE PAIN (7-10 PAIN SCALE) 04/04/24 20:45 Nitroglycerin (Ntrostat Sublingual) 0.4 mg Q5MINP PRN SL FOR CHEST PAIN 04/04/24 20:45 Morphine Sulfate 2 mg Q30M PRN IV FOR CHEST PAIN 04/04/24 20:45 Hydralazine HCl (Apresoline Injection) 10 mg Q6HP PRN IV SBP>150 04/04/24 21:15 Diagnostic Test (Pha) (Accu-Chek Comfort Curve T) 1 strip ACHS 04/04/24 22:00 04/05/24 11:46 Insulin Human Regular (InsuLIN R) ACHS SC 04/04/24 22:00 04/05/24 07:08 Dextrose 50 ml UD PRN IV Blood Sugar LESS THAN 60 04/04/24 21:15 Amlodipine Besylate (Norvasc Tablet) 5 mg DAILY PO 04/05/24 10:00 04/05/24 11:08 Aspirin (Ecotrin Enteric Coated Tablet) 81 mg DAILY PO 04/05/24 10:00 04/05/24 07:33 DC Atorvastatin Calcium (Lipitor) 20 mg DAILY PO 04/05/24 10:00 04/05/24 11:08 Furosemide (Lasix Injection) 20 mg BIDD IV 04/05/24 06:00 04/05/24 01:38 DC Furosemide (Lasix Injection) 40 mg BIDD IV 04/05/24 01:45 04/05/24 07:33 DC 04/05/24 06:16 Furosemide (Lasix Injection) 40 mg TID IV 04/05/24 07:30 04/05/24 08:08 DC Furosemide (Lasix Injection) 40 mg BID IV 04/05/24 08:15 04/05/24 11:09 Sevelamer HCl (Renagel) 800 mg TIDWM PO 04/05/24 12:00 04/05/24 13:30 Losartan Potassium (Cozaar Tablet) 25 mg DAILY PO 04/05/24 10:00 04/05/24 09:56 DC Losartan Potassium (Cozaar Tablet) 25 mg BID PO 04/05/24 10:00 04/05/24 10:03 DC Losartan Potassium (Cozaar Tablet) 50 mg BID PO 04/05/24 10:15 04/05/24 11:08 Review of Systems Patient complaining of generalized weakness, pain or left-sided chest pain, multiple bruises over the body. Eyes: No Pain, No Vision change, No Conjunctivae inflammation, No Eyelid inflammation, No Other, No Redness ENT: No Ear pain, No Ear discharge, No Nose pain, No Nose discharge, No Nose congestion, No Mouth pain, No Mouth swelling, No Throat pain, No Throat swelling, No Other Cardiovascular: No Chest Pain, No Palpitations, No Orthopnea, No Paroxysmal Noc. Dyspnea, No Edema, No Lt Headedness, No Other Respiratory: No Cough, No Dry, No Shortness of breath, No SOB with excertion, No Wheezing, No Hemoptysis, No Pleuritic Pain, No Sputum, No Other Gastrointestinal: No Nausea, No Vomiting, No Abdominal Pain, No Diarrhea, No Constipation, No Melena, No Hematochezia, No Other Genitourinary: No Dysuria, No Frequency, No Incontinence, No Hematuria, No Retention, No Other Musculoskeletal: No other, No neck pain, No shoulder pain, No arm pain, No back pain, No hand pain, No leg pain, No foot pain Skin: No Rash, No Lesions, No Jaundice, No Bruising, No Other Vital Signs Vital Signs Date Time Temp Pulse Resp B/P (MAP) Pulse Ox O2 Delivery O2 Flow Rate FiO2 04/05/24 15:00 80 16 151/67 (95) 96 04/05/24 07:25 Room Air* 0 21 04/05/24 07:25 98.6 98.6 Physical Exam General Appearance: Cooperative. Well developed. Well nourished. NAD Head Exam: Normal inspection Neck Exam: Normal inspection. Non-tender. Normal alignment Pulmonary/Respiratory: Chest non-tender. Clear bilateral breath sounds Cardiovascular/Chest: Regular rate and rhythm. No murmurs. No JVD. Peripheral Pulses: 2+ Radial (R). 2+ Radial (L). 2+ Pedal (R). 2+ Pedal (L) Abdominal Exam: Normal bowel sounds. Soft. Nontender. No hepatospenomegaly. No masses Ankle Exam: Negative ankle edema Lower extremities: Negative lower extremity edema Neuro/Mental Status: A&O x4. Coherent Thoughts/Psych: Normal thought pattern. Appropriate mood and affect. Good judgement and insight Appearance: In no acute distress Skin Exam: Bruises over left lower abdomen, left buttock, sacral region. Hematoma on the left-sided of lumbar spine. Labs/Diagnostic Data Labs Test 04/05/24 11:43 04/05/24 08:36 04/05/24 04:54 04/05/24 04:52 Range/Units POC Glucose 101 70-106 mg/dl Lactic Acid Level 2.4 *H 0.4-2.0 mmol/L White Blood Count 10.0 4.4-10.8 10^3/uL Red Blood Count 2.92 L 4.5-5.90 10^6/uL Hemoglobin 9.9 L 13.5-17.5 g/dL Hematocrit 28.7 L 41.0-53.0 % Mean Corpuscular Volume 98.2 80.0-100.0 fL Mean Corpuscular Hemoglobin 33.9 H 28.0-32.0 pg Mean Corpuscular Hemoglobin Concent 34.5 32.0-36.0 g/dL Red Cell Distribution Width 15.0 H 11.8-14.3 % Platelet Count 167 140-450 10^3/uL Mean Platelet Volume 8.9 6.9-10.8 fL Neutrophils (%) (Auto) 83.0 H 37.0-80.0 % Lymphocytes (%) (Auto) 8.9 L 10.0-50.0 % Monocytes (%) (Auto) 7.8 0.0-12.0 % Eosinophils (%) (Auto) 0.0 0.0-7.0 % Basophils (%) (Auto) 0.3 0.0-2.0 % Neutrophils # (Auto) 8.3 1.6-8.6 10 ^3/uL Lymphocytes # (Auto) 0.9 0.4-5.4 10 ^3/uL Monocytes # (Auto) 0.8 0-1.3 10 ^3/uL Eosinophils # (Auto) 0 0-0.8 10 ^3/uL Basophils # (Auto) 0 0-0.2 10 ^3/uL Nucleated Red Blood Cells 0.0 % Prothrombin Time 15.5 H 9.3-11.8 sec Prothrombin Time INR 1.51 H 0.9-1.15 Sodium Level 139 136-145 mmol/L Potassium Level 4.7 3.5-5.1 mmol/L Chloride Level 101 98-107 mmol/L Carbon Dioxide Level 25 20-31 mmol/L Anion Gap 13 5-15 Blood Urea Nitrogen 52 H 9-23 mg/dL Creatinine 6.61 H 0.700-1.30 mg/dL Glomerular Filtration Rate Calc 8 >90 mL/min BUN/Creatinine Ratio 7.9 L 10.0-20.0 Serum Glucose 143 H 74-106 mg/dL Hemoglobin A1c 5.5 <5.7 % A1C Calcium Level 9.5 8.7-10.4 mg/dL Phosphorus Level 6.6 H 2.4-5.1 mg/dL Magnesium Level 1.8 1.6-2.6 mg/dL Total Bilirubin 1.1 H 0.2-1.0 mg/dL Aspartate Amino Transferase (AST) 56 H 13-40 U/L Alanine Aminotransferase (ALT) 44 H 7-40 U/L Alkaline Phosphatase 104 46-116 U/L Total Protein 6.9 5.7-8.2 g/dL Albumin 4.1 3.2-4.8 g/dL Vitamin B12 Level 664 211-911 pg/mL Vitamin D 25-Hydroxy 45.3 30.0-100 ng/mL Urine Color Yellow Yellow Urine Clarity Clear Clear Urine pH 7.5 5.0-9.0 Urine Specific [place] 1.016 1.001-1.035 Urine Protein 3+ H Negative Urine Ketones Negative Negative Urine Blood 2+ H Negative /uL Urine Nitrite Negative Negative Urine Bilirubin Negative Negative Urine Urobilinogen 2 H Negative mg/dL Urine Leukocyte Esterase Negative Negative /uL Urine RBC 12 0 - 3 /hpf Urine WBC 1 0 - 3 /hpf Urine Squamous Epithelial Cells Few <5 /hpf Urine Bacteria Few H None Seen /hpf Urine Hyaline Casts Few 0 - 2 /lpf Urine Glucose 2+ H Normal mg/dL Urine Opiates Screen Neg NEGATIVE Urine Fentanyl Screen Neg NEGATIVE Urine Barbiturates Screen Neg NEGATIVE Urine Phencyclidine Screen Neg NEGATIVE Urine Amphetamines Screen Neg NEGATIVE Urine Benzodiazepines Screen Neg NEGATIVE Urine Cocaine Screen Neg NEGATIVE Urine Cannabinoids Screen Neg NEGATIVE Test 04/04/24 19:48 Range/Units Creatine Kinase 199 H 46-171 U/L B-Type Natriuretic Peptide > 5000.00 0-100 pg/mL Lipase 37 12-53 U/L Thyroid Stimulating Hormone (TSH) 2.38 0.55-4.78 uIU/mL Plasma/Serum Blood Alcohol < 3.0 <10 mg/dL Assessment ESRD on hemodialysis Hypertensive urgency Fracture of left posterior 11th and 12th ribs Acute on chronic CHF systolic versus diastolic Anemia of chronic disease Lactic acidosis Diabetes mellitus type 2 Hyperlipidemia Anasarca High Fall risk Plan/recommendation : -Plan for hemodialysis today. -blood pressure control: Currently on amlodipine, losartan. Hydralazine p.r.n.. -continue phosphate binder:Sevelamer -diabetic control with insulin -epoetin for anemia, check iron panel and ferritin. Addendum Patient seen and examined, plan discussed with resident. Agree with above, we will follow closely Plan discussed with: Patient, Other (RN) PANFILO ROMAN RESIDENT Apr 05, 2024 16:14 DARIEL POTTER MD Apr 05, 2024 21:45
--- NOTE | 2024-04-05 17:11 | DVHPN2 ---
Subjective feeling shortness of breath this morning Changes from previous H/P or p: No Changes Objective Vitals Vital Signs Date Time Temp Pulse Resp B/P (MAP) Pulse Ox O2 Delivery O2 Flow Rate FiO2 04/05/24 15:00 80 16 151/67 (95) 96 04/05/24 07:25 Room Air* 0 21 04/05/24 07:25 98.6 98.6 General Appearance: Alert, Oriented X3 Lungs: Other (decreased breath sounds at base) Cardiovascular: Regular rate Abdomen: Normal bowel sounds Medications Current Medications Medications Dose Ordered Sig/Vane Route Start Time Stop Time Status Last Admin Dose Admin Ondansetron HCl 4 mg Q4HP PRN IV 04/04/24 20:45 Docusate Sodium 100 mg BIDPRN PRN PO 04/04/24 20:45 Acetaminophen 650 mg Q6HP PRN PO 04/04/24 20:45 Morphine Sulfate 2 mg Q4HPRN PRN IV 04/04/24 20:45 Nitroglycerin 0.4 mg Q5MINP PRN SL 04/04/24 20:45 Morphine Sulfate 2 mg Q30M PRN IV 04/04/24 20:45 Hydralazine HCl 10 mg Q6HP PRN IV 04/04/24 21:15 Diagnostic Test (Pha) 1 strip ACHS 04/04/24 22:00 04/05/24 17:06 1 STRIP Insulin Human Regular ACHS SC 04/04/24 22:00 04/05/24 07:08 2 UNITS Dextrose 50 ml UD PRN IV 04/04/24 21:15 Amlodipine Besylate 5 mg DAILY PO 04/05/24 10:00 04/05/24 11:08 5 MG Atorvastatin Calcium 20 mg DAILY PO 04/05/24 10:00 04/05/24 11:08 20 MG Furosemide 40 mg BID IV 04/05/24 08:15 04/05/24 11:09 40 MG Sevelamer HCl 800 mg TIDWM PO 04/05/24 12:00 04/05/24 13:30 800 MG Losartan Potassium 50 mg BID PO 04/05/24 10:15 04/05/24 11:08 50 MG Laboratory Results Laboratory Tests 04/05/24 04:54 Chemistry Test 04/04/24 19:48 04/05/24 04:54 Albumin 4.1 g/dL (3.2-4.8) 4.1 g/dL (3.2-4.8) Calcium Level 9.7 mg/dL (8.7-10.4) 9.5 mg/dL (8.7-10.4) Magnesium Level 1.8 mg/dL (1.6-2.6) 1.8 mg/dL (1.6-2.6) Total Protein 6.7 g/dL (5.7-8.2) 6.9 g/dL (5.7-8.2) Phosphorus Level 6.6 mg/dL (2.4-5.1) H Coagulation Test 04/05/24 04:54 Prothrombin Time 15.5 sec (9.3-11.8) H Prothrombin Time INR 1.51 (0.9-1.15) H Lipid panel Test 04/04/24 19:48 Lipase 37 U/L (12-53) Cardiac Markers Test 04/04/24 19:48 B-Type Natriuretic Peptide > 5000.00 pg/mL (0-100) LFT Test 04/04/24 19:48 04/05/24 04:54 Alanine Aminotransferase (ALT) 24 U/L (7-40) 44 U/L (7-40) H Alkaline Phosphatase 108 U/L (46-116) 104 U/L (46-116) Aspartate Amino Transferase (AST) 28 U/L (13-40) 56 U/L (13-40) H Total Bilirubin 1.1 mg/dL (0.2-1.0) H 1.1 mg/dL (0.2-1.0) H HgA1c, TSH Test 04/04/24 19:48 04/05/24 04:54 Thyroid Stimulating Hormone (TSH) 2.38 uIU/mL (0.55-4.78) Hemoglobin A1c 5.5 % A1C (<5.7) Urinalysis Test 04/05/24 04:52 Urine Color Yellow (Yellow) Urine Clarity Clear (Clear) Urine pH 7.5 (5.0-9.0) Urine Specific [place] 1.016 (1.001-1.035) Urine Protein 3+ (Negative) H Urine Ketones Negative (Negative) Urine Blood 2+ /uL (Negative) H Urine Nitrite Negative (Negative) Urine Bilirubin Negative (Negative) Urine Urobilinogen 2 mg/dL (Negative) H Urine Leukocyte Esterase Negative /uL (Negative) Urine RBC 12 /hpf (0 - 3) Urine WBC 1 /hpf (0 - 3) Urine Squamous Epithelial Cells Few /hpf (<5) Urine Bacteria Few /hpf (None Seen) H Urine Hyaline Casts Few /lpf (0 - 2) Urine Glucose 2+ mg/dL (Normal) H Assessment/Plan Assessment/Plan #Acute Hypoxic Respiratory Failure likely due to CHF -BNP>5000 -c/w Lasix 40 mh bid -Ordered Cardiology consult -Pending ECHO 2D # hypertensive emergency -BNP> 5000 -continue amlodipine 5 mg daily -continue hydralazine 10 mg IV q.6h p.r.n. -monitor blood pressure #Pain in the left side of the abdomen likely due to rib fracture due to fall - CT abdomen and pelvis revealed-Fractures of the left posterior 11th and 12th ribs as well as the left transverse process at L1. -There is associated edema and hematoma in the left posterior paraspinal musculature extending from the lower thoracic spine to the lumbar spine. -Fluid overload state as evidenced by mild cardiomegaly, pericardial effusion, bilateral pleural effusions, trace diffuse ascites, and anasarca. # Fractures of the left posterior 11th and 12th ribs as well as the left transverse process at L1 - CT abdomen and pelvis revealed-Fractures of the left posterior 11th and 12th ribs as well as the left transverse process at L1. -continue with the pain management as prescribed # bruise on the left lower abdomen, left lower back including left buttock likely from fall -ordered wound consult # Acute exacerbation of CHF -Lasix 40 mg IV b.i.d. --Ordered Cardiology consult -Pending ECHO 2D #Rhabdomyolysys -CK-199 monitor # diabetes mellitus type 2, -continue insulin sliding scale as prescribed #hyperlipidemia -continue atorvastatin 20 mg q.h.s. # ESRD on hemodialysis -patient gets hemodialysis on Thursday/Thursday/Thursday # lactic acidosis -continue current management #pericardial effusion -pending echo 2D -continue current management #bilateral pleural effusions Continue current management getting HD today # trace diffuse ascites -continue current management # history of fall at home -fall precaution -ordered social service consult for safety check at home s Plan discussed with: Patient Date of Service: Apr 05, 2024 Billing Provider: TRISTAN MONSON MD Common Visit Codes: [id number] INP/OBS CARE(HIGH) TRISTAN MONSON MD Apr 05, 2024 17:10
[2024-04-05 17:12] LABS: % Iron Saturation 23.7 % (20-55)
[2024-04-05] MEDS: hydrALAZINE HCL 20 MG/ML VL IV PRN (19:10)
[2024-04-05 21:40] VITALS: PULSE 94; RESP 17; O2SAT 97
[2024-04-05 21:41] VITALS: BP 173/77; PULSE 94; RESP 18; TEMP 98; O2SAT 97
[2024-04-05 22:00] VITALS: BP 173/77; PULSE 94; RESP 17; TEMP 98; O2SAT 97
[2024-04-05] MEDS: EPOETIN ALFA-EPBX 4,000 UNIT/ML VIAL IV ONE (22:24)
--- NOTE | 2024-04-05 22:24 | DVHSR ---
APPROVED REPORT EXAM: Two-dimensional and M-mode echocardiogram with Doppler and color Doppler. Blood Pressure: 164/78 mmHg INDICATION CHF, pericardial effusion, pleural effusion RISK FACTORS Height: 66, Weight: 150 DIMENSIONS LVDd5.7 (3.8-5.7cm)LA (2D)5.2 (1.9-4.0cm)Aortic Root4.3 (2.0-3.7cm) LVDs4.3 (2.5-4.0cm)LA (MM) (1.9-4.0cm)Aortic Cusp Exc1.8 (1.5-2.0cm) EF (%) 50.0 (55-70%)Rt. Atrium4.5 (1.9-4.0cm)Asc. Aorta cm IVSd1.2 (0.7-1.1cm)RV (D) (1.8-2.4cm) PWd1.5 (0.7-1.1cm) Mitral Valve MitralMitral Stenosis E wave1.24m/sMV Mean GR.mmHg A wave0.78m/sMV Peak GR.90mmHg E/A ratio1.62D MVAcm2 DECEL [id number] 1/2 [id number] IVRTmsDop MVA4.27cm2 Aortic Valve Aortic ValveAortic Stenosis V10.89m/Raysa Mean GR.3mmHg V21.22m/Raysa Peak GR.6mmHg LVOT Diameter2.3 (1.8-2.4cm)Doppler AVA3.03cm2 Pulmonic Valve V20.79m/s Tricuspid Valve TR Velocity3.23m/s [id number] Other Information Technically limited study due to patient laying flat on his back. Conclusion Moderately dilated left ventricle. Moderate to severely reduced left ventricular systolic function w ith estimated ejection fraction 35-30%. There is a grade 1 diastolic dysfunction. Normal right ventricular size and dimension. Normal right ventricular systolic function. Severely e levated right ventricular systolic pressure at 64 mm of mercury. Normal aortic valve structure and function. Normal mitral valve structure and function. Normal tricuspid valve structure and function. Pulmonary valve is grossly normal. No pericardial effusion.
[2024-04-06] VITALS (7 sets, daily range): BP systolic 152–168; BP diastolic 64–79; PULSE 65–91; RESP 16–18; TEMP 97.5–98.6; O2SAT 95–97
[2024-04-06] MEDS: hydrALAZINE HCL 25 MG TAB PO SCH (10:00)
[2024-04-06] MEDS: amLODIPine BESYLATE 5 MG TAB PO SCH (10:48)
--- NOTE | 2024-04-06 12:51 | DVHPN2 ---
Progress Note Date Seen: Apr 06, 2024 Resident Creating Document: PANFILO ROMAN RESIDENT Medical Necessity Reason Pt with a Central, PICC or Fol: No Subjective Review of Systems Patient is 73-year-old male with known medical history of ESRD on hemodialysis receiving dialysis on Thursday and Thursday, CHF, hypertension, diabetes mellitus, hyperlipidemia and anemia came to the hospital with a chief complaint of syncopal episode and recent fall where he tripped over and hit his left sided body. Patient denied any other symptoms and he mentioned that he missed his dialysis. With further evaluation hospital patient found to have fracture of left posterior 11th and 12th ribs multiple bruises and sacral erythematous skin. Nephrology consultation has been done for management of ESRD. Patient denying any other complaints at this point. Past Medical History Hypertension, diabetes mellitus type 2, hyperlipidemia, ESRD on hemodialysis, CHF, anemia on chronic disease. No new complaints. Objective vital signs Vital Sign Date Time Temp Pulse Resp B/P (MAP) Pulse Ox O2 Delivery O2 Flow Rate FiO2 04/06/24 10:48 154/79 04/06/24 09:00 98.6 91 18 96 98.6 04/05/24 21:40 Room Air* 0 21 Total Intake and Output 04/05/24 04/05/24 04/06/24 15:00 23:00 07:00 Intake Total 240 ml Balance 240 ml medications Current Medications Medications Dose Ordered Sig/Vane Route Start Time Stop Time Status Last Admin Dose Admin Ondansetron HCl 4 mg Q4HP PRN IV 04/04/24 20:45 Docusate Sodium 100 mg BIDPRN PRN PO 04/04/24 20:45 Acetaminophen 650 mg Q6HP PRN PO 04/04/24 20:45 Morphine Sulfate 2 mg Q4HPRN PRN IV 04/04/24 20:45 Nitroglycerin 0.4 mg Q5MINP PRN SL 04/04/24 20:45 Morphine Sulfate 2 mg Q30M PRN IV 04/04/24 20:45 Hydralazine HCl 10 mg Q6HP PRN IV 04/04/24 21:15 04/06/24 01:29 10 MG Diagnostic Test (Pha) 1 strip ACHS 04/04/24 22:00 04/06/24 11:04 1 STRIP Insulin Human Regular ACHS SC 04/04/24 22:00 04/05/24 07:08 2 UNITS Dextrose 50 ml UD PRN IV 04/04/24 21:15 Atorvastatin Calcium 20 mg DAILY PO 04/05/24 10:00 04/06/24 10:48 20 MG Furosemide 40 mg BID IV 04/05/24 08:15 04/06/24 10:46 40 MG Sevelamer HCl 800 mg TIDWM PO 04/05/24 12:00 04/06/24 08:15 800 MG Losartan Potassium 50 mg BID PO 04/05/24 10:15 04/06/24 10:47 50 MG Amlodipine Besylate 10 mg DAILY PO 04/06/24 10:00 04/06/24 10:48 10 MG Hydralazine HCl 50 mg Q12HR PO 04/06/24 10:00 Examination General Appearance: Cooperative. Well developed. Well nourished. NAD Head Exam: Normal inspection Neck Exam: Normal inspection. Non-tender. Normal alignment Pulmonary/Respiratory: Chest non-tender. Clear bilateral breath sounds Cardiovascular/Chest: Regular rate and rhythm. No murmurs. No JVD. Peripheral Pulses: 2+ Radial (R). 2+ Radial (L). 2+ Pedal (R). 2+ Pedal (L) Abdominal Exam: Normal bowel sounds. Soft. Nontender. No hepatospenomegaly. No masses Ankle Exam: Negative ankle edema Lower extremities: Negative lower extremity edema Neuro/Mental Status: A&O x4. Coherent Thoughts/Psych: Normal thought pattern. Appropriate mood and affect. Good judgement and insight Appearance: In no acute distress Skin Exam: Bruises over left lower abdomen, left buttock, sacral region. Hematoma on the left-sided of lumbar spine. laboratory and microbiology Laboratory Tests 04/05/24 04:54 Test 04/05/24 04:54 Range/Units Serum Glucose 143 H 74-106 mg/dL Problem List/Assessment/Plan Problem List/Assessment/Plan ESRD on hemodialysis Hypertensive urgency Fracture of left posterior 11th and 12th ribs Acute on chronic CHF systolic versus diastolic Anemia of chronic disease Lactic acidosis Diabetes mellitus type 2 Hyperlipidemia Anasarca High Fall risk Plan/recommendation : -last hemodialysis on 04/05/2024. next HD tomorrow -blood pressure control: Currently on amlodipine, losartan. Hydralazine . -continue phosphate binder:Sevelamer -diabetic control with insulin -epoetin for anemia, check iron panel and ferritin. Plan discussed with: Patient, Other (RN) My Orders My Orders Orders - PANFILO ROMAN Procedure Category Date Status Time Amlodipine Tablet PHA 04/06/24 In Process (Norvasc Tablet) 10:00 Hydralazine Hcl PHA 04/06/24 In Process Tablet (Apresoline 10:00 PANFILO ROMAN Apr 06, 2024 12:51 DARIEL POTTER MD Apr 06, 2024 18:00
--- NOTE | 2024-04-06 17:57 | DVHPN2 ---
Subjective Seen and examined at bedside, reviewed CT Abd/Pelvis. Needs home safety eval. Changes from previous H/P or p: No Changes Objective Vitals Vital Signs Date Time Temp Pulse Resp B/P (MAP) Pulse Ox O2 Delivery O2 Flow Rate FiO2 04/06/24 15:17 153/71 04/06/24 13:00 97.5 83 16 97 97.5 04/05/24 21:40 Room Air* 0 21 Intake/Output Intake and Output 04/06/24 07:00 Intake Total 240 ml Balance 240 ml Intake Oral 240 ml General Appearance: Alert, Oriented X3 Lungs: Other (decreased breath sounds at base) Cardiovascular: Regular rate Abdomen: Normal bowel sounds Extremities: Other (LBKA + L UE Fistula) Medications Current Medications Medications Dose Ordered Sig/Vane Route Start Time Stop Time Status Last Admin Dose Admin Ondansetron HCl 4 mg Q4HP PRN IV 04/04/24 20:45 Docusate Sodium 100 mg BIDPRN PRN PO 04/04/24 20:45 Acetaminophen 650 mg Q6HP PRN PO 04/04/24 20:45 Morphine Sulfate 2 mg Q4HPRN PRN IV 04/04/24 20:45 Nitroglycerin 0.4 mg Q5MINP PRN SL 04/04/24 20:45 Morphine Sulfate 2 mg Q30M PRN IV 04/04/24 20:45 Hydralazine HCl 10 mg Q6HP PRN IV 04/04/24 21:15 04/06/24 15:17 10 MG Diagnostic Test (Pha) 1 strip ACHS 04/04/24 22:00 04/06/24 17:17 1 STRIP Insulin Human Regular ACHS SC 04/04/24 22:00 04/05/24 07:08 2 UNITS Dextrose 50 ml UD PRN IV 04/04/24 21:15 Atorvastatin Calcium 20 mg DAILY PO 04/05/24 10:00 04/06/24 10:48 20 MG Furosemide 40 mg BID IV 04/05/24 08:15 04/06/24 10:46 40 MG Sevelamer HCl 800 mg TIDWM PO 04/05/24 12:00 04/06/24 08:15 800 MG Losartan Potassium 50 mg BID PO 04/05/24 10:15 04/06/24 10:47 50 MG Amlodipine Besylate 10 mg DAILY PO 04/06/24 10:00 04/06/24 10:48 10 MG Hydralazine HCl 50 mg Q12HR PO 04/06/24 10:00 Laboratory Results Laboratory Tests 04/05/24 04:54 Urinalysis Test 04/05/24 04:52 Urine Color Yellow (Yellow) Urine Clarity Clear (Clear) Urine pH 7.5 (5.0-9.0) Urine Specific [place] 1.016 (1.001-1.035) Urine Protein 3+ (Negative) H Urine Ketones Negative (Negative) Urine Blood 2+ /uL (Negative) H Urine Nitrite Negative (Negative) Urine Bilirubin Negative (Negative) Urine Urobilinogen 2 mg/dL (Negative) H Urine Leukocyte Esterase Negative /uL (Negative) Urine RBC 12 /hpf (0 - 3) Urine WBC 1 /hpf (0 - 3) Urine Squamous Epithelial Cells Few /hpf (<5) Urine Bacteria Few /hpf (None Seen) H Urine Hyaline Casts Few /lpf (0 - 2) Urine Glucose 2+ mg/dL (Normal) H Microbiology Microbiology Date/Time Source Procedure Growth Status 04/05/24 21:37 Nose MRSA Screen - Final Complete Assessment/Plan Assessment/Plan # Fall - PT eval # ESRD on HD # Paraspinal Hematoma - Monitor Plan discussed with: Patient Date of Service: Apr 06, 2024 Billing Provider: TONYA MORRIS MD Common Visit Codes: [id number] INP/OBS CARE(HIGH) TONYA MORRIS MD Apr 06, 2024 17:57
[2024-04-06] MEDS: ACETAMINOPHEN 325 MG TAB PO PRN (21:12)
[2024-04-07] VITALS (7 sets, daily range): BP systolic 126–151; BP diastolic 54–72; PULSE 69–81; RESP 16–19; TEMP 36.4; O2SAT 94–99
[2024-04-07 07:59] LABS: Basophils # (auto) 0 10 ^3/uL (0-0.2); Basophils % (auto) 0.5 % (0.0-2.0); Eosinophils # (auto) 0.1 10 ^3/uL (0-0.8); Eosinophils % (auto) 0.8 % (0.0-7.0); Hematocrit 28.8 % (41.0-53.0); Hemoglobin 9.8 g/dL (13.5-17.5); Lymphocytes % (auto) 9.9 % (10.0-50.0); Mean Corpuscular Hemoglobin 33.7 pg (28.0-32.0); Mean Corpuscular Hgb Conc. 34.2 g/dL (32.0-36.0); Mean Corpuscular Volume 98.4 fL (80.0-100.0); Monocytes % (auto) 10.4 % (0.0-12.0); Neutrophils # (auto) 7.7 10 ^3/uL (1.6-8.6); Neutrophils % (auto) 78.4 % (37.0-80.0); Nucleated Red Blood Cells % 0.1 %; Platelet Count (auto) 181 10^3/uL (140-450); Red Blood Cells 2.92 10^6/uL (4.5-5.90); Red Cell Distribution Width 15.1 % (11.8-14.3); White Blood Cell 9.8 10^3/uL (4.4-10.8)
[2024-04-07 08:16] LABS: Anion Gap 9 (5-15); Carbon Dioxide 29 mmol/L (20-31); Potassium 3.5 mmol/L (3.5-5.1)
[2024-04-07 08:17] LABS: Calcium 8.7 mg/dL (8.7-10.4)
[2024-04-07 08:22] LABS: BUN/Creatinine Ratio 8.2 (10.0-20.0); Glucose 96 mg/dL (74-106)
[2024-04-07 08:23] LABS: Blood Urea Nitrogen 51 mg/dL (9-23); Chloride 97 mmol/L (98-107); Sodium 135 mmol/L (136-145)
[2024-04-07] MEDS: FUROSEMIDE 40 MG/4 ML VIAL IV SCH (10:20)
[2024-04-07] MEDS: SODIUM CHL 0.9% 1000 ML BAG XX ONE (13:45)
--- NOTE | 2024-04-07 14:50 | DVHDS2 ---
Discharge Summary Date of Admission Apr 04, 2024 at 20:42 Date of Discharge: Apr 07, 2024 Admitting Diagnosis Fall Labs/Diagnostic Data: Laboratory Results Test 04/07/24 07:34 04/07/24 05:36 04/05/24 08:36 04/05/24 04:54 White Blood Count 9.8 10^3/uL (4.4-10.8) Red Blood Count 2.92 10^6/uL (4.5-5.90) Hemoglobin 9.8 g/dL (13.5-17.5) Hematocrit 28.8 % (41.0-53.0) Mean Corpuscular Volume 98.4 fL (80.0-100.0) Mean Corpuscular Hemoglobin 33.7 pg (28.0-32.0) Mean Corpuscular Hemoglobin Concent 34.2 g/dL (32.0-36.0) Red Cell Distribution Width 15.1 % (11.8-14.3) Platelet Count 181 10^3/uL (140-450) Mean Platelet Volume 8.1 fL (6.9-10.8) Neutrophils (%) (Auto) 78.4 % (37.0-80.0) Lymphocytes (%) (Auto) 9.9 % (10.0-50.0) Monocytes (%) (Auto) 10.4 % (0.0-12.0) Eosinophils (%) (Auto) 0.8 % (0.0-7.0) Basophils (%) (Auto) 0.5 % (0.0-2.0) Neutrophils # (Auto) 7.7 10 ^3/uL (1.6-8.6) Lymphocytes # (Auto) 1.0 10 ^3/uL (0.4-5.4) Monocytes # (Auto) 1.0 10 ^3/uL (0-1.3) Eosinophils # (Auto) 0.1 10 ^3/uL (0-0.8) Basophils # (Auto) 0 10 ^3/uL (0-0.2) Nucleated Red Blood Cells 0.1 % Sodium Level 135 mmol/L (136-145) Potassium Level 3.5 mmol/L (3.5-5.1) Chloride Level 97 mmol/L (98-107) Carbon Dioxide Level 29 mmol/L (20-31) Anion Gap 9 (5-15) Blood Urea Nitrogen 51 mg/dL (9-23) Creatinine 6.21 mg/dL (0.700-1.30) Glomerular Filtration Rate Calc 9 mL/min (>90) BUN/Creatinine Ratio 8.2 (10.0-20.0) Serum Glucose 96 mg/dL (74-106) Calcium Level 8.7 mg/dL (8.7-10.4) POC Glucose 174 mg/dl (70-106) Lactic Acid Level 2.4 mmol/L (0.4-2.0) Prothrombin Time 15.5 sec (9.3-11.8) Prothrombin Time INR 1.51 (0.9-1.15) Hemoglobin A1c 5.5 % A1C (<5.7) Phosphorus Level 6.6 mg/dL (2.4-5.1) Magnesium Level 1.8 mg/dL (1.6-2.6) Iron Level 66 ug/dL (65-175) Total Iron Binding Capacity 279 ug/dL (250-425) Percent Iron Saturation 23.7 % (20-55) Ferritin 1077.7 ng/mL (22-322) Total Bilirubin 1.1 mg/dL (0.2-1.0) Aspartate Amino Transferase (AST) 56 U/L (13-40) Alanine Aminotransferase (ALT) 44 U/L (7-40) Alkaline Phosphatase 104 U/L (46-116) Total Protein 6.9 g/dL (5.7-8.2) Albumin 4.1 g/dL (3.2-4.8) Vitamin B12 Level 664 pg/mL (211-911) Vitamin D 25-Hydroxy 45.3 ng/mL (30.0-100) Hepatitis B Surface Antigen Negative (Negative) Test 04/05/24 04:52 04/04/24 19:48 Urine Color Yellow (Yellow) Urine Clarity Clear (Clear) Urine pH 7.5 (5.0-9.0) Urine Specific [place] 1.016 (1.001-1.035) Urine Protein 3+ (Negative) Urine Ketones Negative (Negative) Urine Blood 2+ /uL (Negative) Urine Nitrite Negative (Negative) Urine Bilirubin Negative (Negative) Urine Urobilinogen 2 mg/dL (Negative) Urine Leukocyte Esterase Negative /uL (Negative) Urine RBC 12 /hpf (0 - 3) Urine WBC 1 /hpf (0 - 3) Urine Squamous Epithelial Cells Few /hpf (<5) Urine Bacteria Few /hpf (None Seen) Urine Hyaline Casts Few /lpf (0 - 2) Urine Glucose 2+ mg/dL (Normal) Urine Opiates Screen Neg (NEGATIVE) Urine Fentanyl Screen Neg (NEGATIVE) Urine Barbiturates Screen Neg (NEGATIVE) Urine Phencyclidine Screen Neg (NEGATIVE) Urine Amphetamines Screen Neg (NEGATIVE) Urine Benzodiazepines Screen Neg (NEGATIVE) Urine Cocaine Screen Neg (NEGATIVE) Urine Cannabinoids Screen Neg (NEGATIVE) Creatine Kinase 199 U/L (46-171) B-Type Natriuretic Peptide > 5000.00 pg/mL (0-100) Lipase 37 U/L (12-53) Thyroid Stimulating Hormone (TSH) 2.38 uIU/mL (0.55-4.78) Plasma/Serum Blood Alcohol < 3.0 mg/dL (<10) Other Laboratory Tests 04/07/24 07:34 Brief Hx & Hospital Course: Patient is 73-year-old male with known medical history of ESRD on hemodialysis receiving dialysis on Thursday and Thursday, CHF, hypertension, diabetes mellitus, hyperlipidemia and anemia came to the hospital with a chief complaint of syncopal episode and recent fall where he tripped over and hit his left sided body. Patient denied any other symptoms and he mentioned that he missed his dialysis. With further evaluation hospital patient found to have fracture of left posterior 11th and 12th ribs multiple bruises and sacral erythematous skin. Nephrology consultation has been done for management of ESRD. Patient underwent HD. Back to his baseline. Patient wants to be discharged home. Operations or Procedures Exam: CT CT AB PEL WO CON-NO ORAL OR IV History: L abd pain Comparison Study: None available at time of dictation. Technique: Multidetector spiral CT of the abdomen was performed from lung bases to pubic symphysis. Imaging was performed without IV contrast. Axial, coronal and sagittal multiplanar reformats were obtained from the axial data set by the technologist. Radiation Dose : 1. Abdomen/Pelvis: CTDIvol 16 mGy, DLP 850 mGy*cm. Findings: Evaluation of solid organs is limited due to lack of intravenous contrast use. Lung Bases: Moderate left and mild right pleural effusions. Moderate pericardial effusion. Severe calcification of the coronary vessels. Liver: The liver is normal in size. No focal lesions. Gallbladder and Biliary Tree: Unremarkable Spleen: Unremarkable Pancreas: The pancreas is grossly normal in appearance. Adrenal Glands: Unremarkable Kidneys: Kidneys are grossly normal without calculi or hydronephrosis. Bladder: Grossly unremarkable for degree of distention. Bowel: The stomach is grossly normal in appearance. Small bowel and colon are normal in caliber and distribution. The appendix is not visualized; however, no secondary findings of acute appendicitis identified. Ascites: Trace diffuse ascites. Lymphadenopathy: No mesenteric, retroperitoneal or periportal lymphadenopathy. Abdominal Wall and Mesentery: Unremarkable. Vasculature: The visualized abdominal aorta is normal in size and caliber. Evaluation of abdominal and pelvic vessels is limited due to lack of intravenous contrast. Moderate to severe vascular calcification throughout the abdomen and its branching arteries. Pelvic Organs: Unremarkable Musculoskeletal: Displaced fracture of the left L1 transverse process. Fractures of the posterior left 12th and 11th ribs 4 area sensory tremulous icy.. Asymmetric swelling of the left paraspinal musculature at the level of the lower thoracic spine extending to the lumbar spine. IMPRESSION: Fractures of the left posterior 11th and 12th ribs as well as the left transverse process at L1. There is associated edema and hematoma in the left posterior paraspinal musculature extending from the lower thoracic spine to the lumbar spine. Fluid overload state as evidenced by mild cardiomegaly, pericardial effusion, bilateral pleural effusions, trace diffuse ascites, and anasarca. EXAM: Two-dimensional and M-mode echocardiogram with Doppler and color Doppler. Blood Pressure: 164/78 mmHg INDICATION CHF, pericardial effusion, pleural effusion RISK FACTORS Height: 66, Weight: 150 DIMENSIONS LVDd 5.7 (3.8-5.7cm) LA (2D) 5.2 (1.9-4.0cm) Aortic Root 4.3 (2.0- 3.7cm) LVDs 4.3 (2.5-4.0cm) LA (MM) (1.9-4.0cm) Aortic Cusp Exc 1.8 (1.5- 2.0cm) EF (%) 50.0 (55-70%) Rt. Atrium 4.5 (1.9-4.0cm) Asc. Aorta cm IVSd 1.2 (0.7-1.1cm) RV (D) (1.8-2.4cm) PWd 1.5 (0.7-1.1cm) Mitral Valve Mitral Mitral Stenosis E wave 1.24m/s MV Mean GR. mmHg A wave 0.78m/s MV Peak GR. 90mmHg E/A ratio 1.6 2D MVA cm2 DECEL Time 193ms PRESS 1/2 Time 51ms IVRT ms Dop MVA 4.27cm2 Aortic Valve Aortic Valve Aortic Stenosis V1 0.89m/s AO Mean GR. 3mmHg V2 1.22m/s AO Peak GR. 6mmHg LVOT Diameter 2.3 (1.8-2.4cm) Doppler ESTELLE 3.03cm2 Pulmonic Valve V2 0.79m/s Tricuspid Valve TR Velocity 3.23m/s RVSP 64mmHg Other Information Technically limited study due to patient laying flat on his back. Conclusion Moderately dilated left ventricle. Moderate to severely reduced left ventricular systolic function with estimated ejection fraction 35-30%. There is a grade 1 diastolic dysfunction. Normal right ventricular size and dimension. Normal right ventricular systolic function. Severely elevated right ventricular systolic pressure at 64 mm of mercury. Normal aortic valve structure and function. Normal mitral valve structure and function. Normal tricuspid valve structure and function. Pulmonary valve is grossly normal. No pericardial effusion. Condition at Discharge: Poor Final Diagnosis/Problems List Pericardial effusion Paraspinal Hematoma ESRD on HD L BKA Discharge Disposition: Home Discharge Instruct/Medications Diet: Renal Activity: Light activity Follow Up/Referral: PCP in 3-5 days Medications: see med [facility] Discharge Statement: "Patient was advised to return to the ER or call 911 if any headaches, dizziness, shortness of breath, chest pain, abdominal pain, bleeding, fevers, or worsening of medical condition. Patient was counseled about treatment plan, medications, possible side effects, patientverbalized understanding. All questions were answered to the best of my ability. This discharge took greater then 30 minutes in planning, reviewing documentation, counseling the patient, and discussing with other team members." ASSESSMENT ASSESSMENT Assessment Date of Service: Apr 07, 2024 Billing Provider: TONYA MORRIS MD Common Visit Codes: 48603-DYA/OBS DISCH DAY >30min TONYA MORRIS MD Apr 07, 2024 14:50
--- NOTE | 2024-04-07 15:22 | DVHPN2 ---
Progress Note Date Seen: Apr 07, 2024 Medical Necessity Reason Pt with a Central, PICC or Fol: No Subjective Patient reports: No new complaints Review of Systems: Deferred Objective vital signs Vital Sign Date Time Temp Pulse Resp B/P (MAP) Pulse Ox O2 Delivery O2 Flow Rate FiO2 04/07/24 10:21 140/63 04/07/24 09:00 97.6 69 16 99 97.6 04/07/24 08:11 Room Air* 0 21 Total Intake and Output 04/06/24 04/06/24 04/07/24 15:00 23:00 07:00 Intake Total 600 ml 620 ml Output Total 0 ml Balance 600 ml 620 ml medications Current Medications Medications Dose Ordered Sig/Vane Route Start Time Stop Time Status Last Admin Dose Admin Ondansetron HCl 4 mg Q4HP PRN IV 04/04/24 20:45 Docusate Sodium 100 mg BIDPRN PRN PO 04/04/24 20:45 Acetaminophen 650 mg Q6HP PRN PO 04/04/24 20:45 04/06/24 21:12 650 MG Morphine Sulfate 2 mg Q4HPRN PRN IV 04/04/24 20:45 Nitroglycerin 0.4 mg Q5MINP PRN SL 04/04/24 20:45 Morphine Sulfate 2 mg Q30M PRN IV 04/04/24 20:45 Hydralazine HCl 10 mg Q6HP PRN IV 04/04/24 21:15 04/06/24 15:17 10 MG Diagnostic Test (Pha) 1 strip ACHS 04/04/24 22:00 04/07/24 12:08 1 STRIP Insulin Human Regular ACHS SC 04/04/24 22:00 04/07/24 12:07 3 UNITS Dextrose 50 ml UD PRN IV 04/04/24 21:15 Atorvastatin Calcium 20 mg DAILY PO 04/05/24 10:00 04/07/24 09:50 20 MG Sevelamer HCl 800 mg TIDWM PO 04/05/24 12:00 04/07/24 12:09 800 MG Losartan Potassium 50 mg BID PO 04/05/24 10:15 04/07/24 09:51 50 MG Amlodipine Besylate 10 mg DAILY PO 04/06/24 10:00 04/07/24 09:50 10 MG Hydralazine HCl 50 mg Q12HR PO 04/06/24 10:00 04/07/24 10:21 50 MG Furosemide 40 mg BIDD IV 04/07/24 10:05 04/07/24 10:20 40 MG Examination: GENERAL:Normal, HEENT:Normal, NECK:Normal, LUNGS:Normal, CVS:Normal, ABDOMEN:Normal, MSK:Normal, SKIN:Abnormal, NEURO:Normal, :Normal laboratory and microbiology Laboratory Tests 04/07/24 07:34 Test 04/07/24 07:34 Range/Units Serum Glucose 96 74-106 mg/dL Microbiology Date/Time Source Procedure Growth Status 04/05/24 21:37 Nose MRSA Screen - Final Complete Problem List/Assessment/Plan Problem List/Assessment/Plan ESRD on hemodialysis Hypertensive urgency Fracture of left posterior 11th and 12th ribs Acute on chronic CHF systolic versus diastolic Anemia of chronic disease Lactic acidosis Diabetes mellitus type 2 Hyperlipidemia Anasarca High Fall risk Plan/recommendation Hemodialysis today Next dialysis Thursday if still here Plan discussed with: Patient My Orders My Orders Orders - DARIEL POTTER MD Procedure Category Date Status Time Hemodialysis Orders ORDERS 04/07/24 Transmitted 10:43 Epoetin Loyd-Epbx PHA 04/07/24 In Process (Retacrit) 21:00 DARIEL POTTER MD Apr 07, 2024 15:22
[2024-04-07] MEDS ORDERED: EPOETIN ALFA-EPBX 4,000 UNIT/ML VIAL SC ONE (21:00)
== END 2024-04-07 20:55 | disposition home or self-care (01) | DRG 551 ==
LOC: ER 18:48 → EDUNIT# 18:48 → EDBD 18:48 → TELE 20:42 → TELE-WESTW 04-05 21:19 → WEST WING 04-06 18:24
PROVIDERS: ADMIT Internal Medicine; ATTEND Internal Medicine
PROC: 5A1D70Z Performance of Urinary Filtration, Intermittent, Less than 6 Hours Per Day (ICD-10-PCS; principal; 2024-04-05)
PROC: 5A1D70Z Performance of Urinary Filtration, Intermittent, Less than 6 Hours Per Day (ICD-10-PCS; 2024-04-07)
DX: S32.018A Other fracture of first lumbar vertebra, initial encounter for closed fracture (principal); I50.43 Acute on chronic combined systolic (congestive) and diastolic (congestive) heart failure; N18.6 End stage renal disease; I16.1 Hypertensive emergency; E87.20 Acidosis, unspecified; I13.2 Hypertensive heart and chronic kidney disease with heart failure and with stage 5 chronic kidney disease, or end stage renal disease; M62.82 Rhabdomyolysis; I31.39 Other pericardial effusion (noninflammatory); S22.42XA Multiple fractures of ribs, left side, initial encounter for closed fracture; E11.22 Type 2 diabetes mellitus with diabetic chronic kidney disease; E78.5 Hyperlipidemia, unspecified; W01.0XXA Fall on same level from slipping, tripping and stumbling without subsequent striking against object, initial encounter; D63.8 Anemia in other chronic diseases classified elsewhere; S30.0XXA Contusion of lower back and pelvis, initial encounter; Z99.2 Dependence on renal dialysis; Z89.512 Acquired absence of left leg below knee; Y93.89 Activity, other specified; Y92.89 Other specified places as the place of occurrence of the external cause; Y99.8 Other external cause status; Z79.4 Long term (current) use of insulin
CPT/HCPCS: 36415; 70450; 71046; 74176; 80048; 80053; 80307; 80320; 81001; 82306; 82550; 82607; 82728; 82962; 83036; 83540; 83550; 83605; 83690; 83735; 83880; 84100; 84443; 85025; 85610; 87081; 87340; 90935; 93306; G0378; J1815

== ENCOUNTER 2024-07-23 19:52 | Observation (INO) | payer OTHER, MEDICAID ==
[~2024-07-23] VITALS: Ht 175.3 cm; Wt 79.2 kg
[~2024-07-23 19:52] MED LIST changes: -AMLO1TAB22 PO; -DOXY1CAP57 PO
--- NOTE | 2024-07-23 20:17 | ED.PDOC ---
HPI (NEURO) HPI Comments 73y F who presents to the ED via EMS for chief complaint of generalized weakness. Per EMS, pt is on dialysis and receives tx M, W, F and Sat and family states he missed dialysis treatment for the past 2 days due to ''feeling weak." Pt granddaughter called EMS after she noticed pt more weak than usual and wanted him evaluated. EMS arrived on scene and noted pt was alert and oriented x 4 and able to answer all questions. EMS does state pt has noted BP of 215/97 but otherwise all other vitals are stable including 02 sat of 96% on room air. Pt otherwise denies any specific complaints including nausea, vomiting, diarrhea, fever, cough, chills, dysuria, hematuria or hematemesis. Pt denies any other sy mptoms at this time. Time Seen by MD: 20:15 Primary Care Provider: UNKNOWN Reviewed Notes: Oyster Culler Notes, Medications Information Source: Patient, Emergency Med Personnel Mode of Arrival: EMS Brought in by: EMS Severity: Moderate Dizziness/Weakness Severity: Unable to do activities Headache Severity: None Timing: Days Duration: Since onset Prehospital treatment: Treatment Onset: At rest Circumstances: Spontaneous Symptoms: Near syncope, Weakness Associated Signs and Symptoms: Weakness Past Medical History PAST MEDICAL HISTORY: CHF, DM, ESRD, High Lipids, HTN Surgical History: BKA, Hernia Repair Family History Family History: Reviewed,noncontributory to illness Social History Smoker: Non-Smoker Alcohol: Denies ETOH Use Drugs: Denies Drug Use Lives In: Home Constitutional: reports: fatigue, malaise, weakness; denies: chills, diaphoresis, fever, sweats, others EENTM: denies: blurred vision, double vision, ear bleeding, ear discharge, ear drainage, ear pain, ear ringing, eye pain, eye redness, hearing loss, mouth pain, mouth swelling, nasal discharge, nose bleeding, nose congestion, nose pain, photophobia, tearing, throat pain, throat swelling, voice changes, others Respiratory: denies: cough, hemoptysis, orthopnea, SOB at rest, shortness of breath, SOB with excertion, stridor, wheezing, others Cardiovascular: denies: chest pain, dizzy spells, diaphoresis, Dyspnea on exertion, edema, irregular heart beat, left arm pain, lightheadedness, palpitations, PND, syncope, others Gastrointestinal: denies: abdomen distended, abdominal pain, blood streaked bowels, constipated, diarrhea, dysphagia, difficulty swallowing, hematemesis, melena, nausea, poor appetite, poor fluid intake, rectal bleeding, rectal pain, vomiting, others Genitourinary: denies: burning, dysuria, flank pain, frequency, hematuria, i ncontinence, penile discharge, penile sore, pain, testicle pain, testicle swelling, urgency, others Neurological: denies: dizziness, fainting, headache, left sided numbness, left sided weakness, numbness, paresthesia, pre-existing deficit, right sided numbness, right sided weakness, seizure, speech problems, tingling, tremors, weakness, others Musculoskeletal: denies: back pain, gout, joint pain, joint swelling, muscle pain, muscle stiffness, neck pain, others Integumetry: denies: bruises, change in color, change in hair/nails, dryness, laceration, lesions, lumps, rash, wounds, others Allergic/Immunocompromised: denies: Difficulty Healing, Frequent Infections, Hives, Itching, others Hematologic/Lymphatic: denies: anemia, blood clots, easy bleeding, easy bruising, swollen glands, others Endocrine: denies: excessive hunger, excessive sweating, excessive thirst, excessive urination, flushing, intolerance to cold, intolerance to heat, unexplained weight gain, unexplained weight loss, others Psychiatric: denies: anxiety, bipolar disorder, depression, hopeless, panic disorder, schizophrenia, sleepless, suicidal, others All Other Systems: Reviewed and Negative (see HPI) Physical Exam General Appearance: Moderate Distress (Patient appears toxic and in poor overall health.), Normal HEENT: Normal ENT Inspection, Pharynx Normal, TMs Normal Neck: Full Range of Motion, Non-Tender, Normal, Normal Inspection Respiratory: Chest Non-Tender, Lungs Clear, No Accessory Muscle Use, No Respiratory Distress, Normal Breath Sounds Cardiovascular: No Edema, No JVD, No Murmur, No Gallop, Normal Peripheral Pulses, Regular Rate/Rhythm Breast Exam: Deferred Gastrointestinal: No Organomegaly, Non Tender, No Pulsatile Mass, Normal Bowel Sounds, Soft Genitalia: Deferred Pelvic: Deferred Rectal: Deferred Extremities: NOT DONE Neurologic: NOT DONE Cerebellar Function: NOT DONE Reflexes: NOT DONE Skin: Dry, Normal Color, Warm Lymphatic: No Adenopathy Was a procedure done? Was a procedure done?: No Differential Diagnosis (SZ) General Weakness: Anemia, Dehydration, Electrolyte imbalance, Encephalopathy, Other (metabolic encephalopathy, ESRD on dialysis, HTN urgency, hyperkalemia, ) X-Ray, Labs, Meds, VS Vital Signs Date Time Temp Pulse Resp B/P (MAP) Pulse Ox O2 Delivery O2 Flow Rate FiO2 07/23/24 21:30 89 07/23/24 20:41 83 20 95 Room Air* 0 21 07/23/24 20:41 97.4 97.4 07/23/24 20:08 97.7 92 18 215/97 (136) 96 97.7 07/23/24 19:54 93 Lab Test 07/23/24 23:32 07/23/24 22:56 07/23/24 22:35 07/23/24 21:36 Range/Units Troponin I High Sensitivity Pending 3032 *H </=54 ng/L POC Glucose 115 H 70-106 mg/dl Lactic Acid Level 1.8 0.4-2.0 mmol/L Test 07/23/24 20:39 07/23/24 20:35 Range/Units White Blood Count 8.2 4.4-10.8 10^3/uL Red Blood Count 3.62 L 4.5-5.90 10^6/uL Hemoglobin 11.7 L 13.5-17.5 g/dL Hematocrit 35.7 L 41.0-53.0 % Mean Corpuscular Volume 98.6 80.0-100.0 fL Mean Corpuscular Hemoglobin 32.2 H 28.0-32.0 pg Mean Corpuscular Hemoglobin Concent 32.7 32.0-36.0 g/dL Red Cell Distribution Width 14.8 H 11.8-14.3 % Platelet Count 140 140-450 10^3/uL Mean Platelet Volume 8.7 6.9-10.8 fL Neutrophils (%) (Auto) 81.1 H 37.0-80.0 % Lymphocytes (%) (Auto) 8.8 L 10.0-50.0 % Monocytes (%) (Auto) 9.2 0.0-12.0 % Eosinophils (%) (Auto) 0.1 0.0-7.0 % Basophils (%) (Auto) 0.8 0.0-2.0 % Neutrophils # (Auto) 6.6 1.6-8.6 10 ^3/uL Lymphocytes # (Auto) 0.7 0.4-5.4 10 ^3/uL Monocytes # (Auto) 0.8 0-1.3 10 ^3/uL Eosinophils # (Auto) 0 0-0.8 10 ^3/uL Basophils # (Auto) 0.1 0-0.2 10 ^3/uL Nucleated Red Blood Cells 0.1 % Sodium Level 135 L 136-145 mmol/L Potassium Level 5.6 *H 3.5-5.1 mmol/L Chloride Level 100 98-107 mmol/L Carbon Dioxide Level 22 20-31 mmol/L Anion Gap 13 5-15 Blood Urea Nitrogen 83 *H 9-23 mg/dL Creatinine 8.35 H 0.700-1.30 mg/dL Glomerular Filtration Rate Calc 6 >90 mL/min BUN/Creatinine Ratio 9.9 L 10.0-20.0 Serum Glucose 139 H 74-106 mg/dL Lactic Acid Level 2.3 *H 0.4-2.0 mmol/L Calcium Level 8.8 8.7-10.4 mg/dL Total Bilirubin 0.8 0.2-1.0 mg/dL Aspartate Amino Transferase (AST) 27 13-40 U/L Alanine Aminotransferase (ALT) 32 7-40 U/L Alkaline Phosphatase 178 H 46-116 U/L Troponin I High Sensitivity 2863 *H </=54 ng/L B-Type Natriuretic Peptide > 5000.00 0-100 pg/mL Total Protein 7.5 5.7-8.2 g/dL Albumin 4.4 3.2-4.8 g/dL Lipase 46 12-53 U/L Blood Gas Specimen Type Arterial Blood Gas Sample Site Right radial Blood Gas Patient Temperature 37.0 Arterial Blood Date Drawn [id number] Arterial Blood pH 7.430 7.350-7.450 Arterial Blood Partial Pressure CO2 25.1 L 35.0-48.0 mmHg Arterial Blood Partial Pressure O2 66.0 L 83.0-108.0 mmHg Arterial Blood HCO3 16.3 L 21.0-28.0 mmol/L Arterial Blood Oxygen Saturation 90.2 L 94.0-98.0 % Arterial Blood Base Excess -6.4 L -2.0-3.0 mmol/L Arterial Blood Oxyhemoglobin 88.8 L 94.0-98.0 % Arterial Blood Carboxyhemoglobin 1.2 0.5-1.5 % Arterial Blood Methemoglobin 0.3 0.0-1.5 % Fer Test Yes Blood Gas Total Hemoglobin 12.30 L 13.5-17.5 g/dL Blood Gas Modality Room air FiO2 % 21.0 Current Medications Medications (Trade) Dose Ordered Sig/Vane Route Start Time Stop Time Status Last Admin Sodium Chloride 1,000 ml @ 150 mls/hr Q6H40M ONCE IV 07/23/24 20:15 07/24/24 02:54 07/23/24 21:06 [place] [id number] Ph: [phone] DIAGNOSTIC IMAGING Diagnostic Imaging Report : [id number] Signed PATIENT: NAV REAVESACCT: [id number] UNIT: [id number] : 1950 LOC: ER ROOM / BED: / AGE / SEX: 73 / M ADM STATUS: REG ER SERVICE 04 ORDERING PHYSICIAN: UMA THOMAS PAC PROCEDURE(s): CXRP - CHEST PORTABLE REASON: Shortness of breath ORDER NUMBER(s): [id number], ACCESSION NUMBER(s): [id number] CHEST RADIOGRAPH Indication: Shortness of breath Technique: Single frontal view of the chest was obtained Comparison: XY CHEST PORTABLE on DOS: 03/04/24, XY CHEST PORTABLE on DOS: 09/28/23 FINDINGS: Lines and Tubes: None Lungs: Bilateral perihilar peribronchial thickening with cardiomegaly. Pleura: No effusion. No pneumothorax. Cardiomediastinal contours: Cardiomegaly Bones: No acute osseous abnormality. IMPRESSION: 1. Findings may represent congestive failure. ATED BY: CLEMENCIA LIRIANO Jr., DO DICTATED DATE/TIME: 07/23/242046 SIGNED BY: CLEMENCIA LIRIANO Jr., DO SIGNED DATE/TIME: 07/23/242046 CC: X-Ray, Labs, Meds, VS Comment All studies performed in the ED were evaluated by me personally. Serum laboratories revealed an anemia, hypokalemia, confirmation of end-stage renal disease, elevated lactic acid, significant CHF exacerbation as well as significant elevated troponins. EKG revealed a sinus rhythm with a rate of 93. Right bundle-branch block and LP SP was noted. NJ interval 187 and QT interval 428. This patient will be admitted for multiple comorbidities, the most pressing is a dialysis treatment that would be required tomorrow. Time of 1ST Reevaluation: 23:53 Reevaluation 1ST: Improved Consultation: PCP, Cardiology Patient Education/Counseling: Diagnosis, Treatment Family Education/Counseling: Diagnosis, Treatment, No Family Present Departure 1 Departure Time of Disposition: 23:53 Impression: Primary Impression: Acute exacerbation of congestive heart failure Additional Impressions: Elevated troponin I level Elevated lactic acid level End stage renal disease on dialysis Hyperkalemia Respiratory alkalosis Disposition: ADMITTED INPATIENT Condition: Poor Discharged With: Self Critical Care Note Critical Care Time?: No Stability Stability form required: No Heart Score Heart Score: Heart Score Response (Comments) Value History Slightly Suspicious 0 EKG Repolarization Disturb 1 Age >65 2 Risk Factors >3 or Hx ASHD 2 Troponin >3 x's Normal limit 2 Total 7 I personally scribed for UMA THOMAS PAC ([email or web address]) on 07/23/24 at 20:17. Electronically submitted by Rin Helm ([email or web address]). I personally scribed for UMA THOMAS PAC ([email or web address]) on 07/23/24 at 20:23. Electronically submitted by Rin Helm ([email or web address]). I personally scribed for UMA THOMAS PAC ([email or web address]) on 07/23/24 at 21:04. Electronically submitted by Rin Helm ([email or web address]). UMA THOMAS PAC Jul 23, 2024 20:17
[2024-07-23 20:41] VITALS: PULSE 83; RESP 20; O2SAT 95
--- NOTE | 2024-07-23 20:50 | DVH ---
CHEST RADIOGRAPH Indication: Shortness of breath Technique: Single frontal view of the chest was obtained Comparison: XY CHEST PORTABLE on DOS: 03/04/24, XY CHEST PORTABLE on DOS: 09/28/23 FINDINGS: Lines and Tubes: None Lungs: Bilateral perihilar peribronchial thickening with cardiomegaly. Pleura: No effusion. No pneumothorax. Cardiomediastinal contours: Cardiomegaly Bones: No acute osseous abnormality. IMPRESSION: 1. Findings may represent congestive failure.
[2024-07-23 20:54] LABS: Basophils # (auto) 0.1 10 ^3/uL (0-0.2); Basophils % (auto) 0.8 % (0.0-2.0); Eosinophils # (auto) 0 10 ^3/uL (0-0.8); Eosinophils % (auto) 0.1 % (0.0-7.0); Hematocrit 35.7 % (41.0-53.0); Hemoglobin 11.7 g/dL (13.5-17.5); Lymphocytes # (auto) 0.7 10 ^3/uL (0.4-5.4); Lymphocytes % (auto) 8.8 % (10.0-50.0); Mean Corpuscular Hemoglobin 32.2 pg (28.0-32.0); Mean Corpuscular Hgb Conc. 32.7 g/dL (32.0-36.0); Mean Corpuscular Volume 98.6 fL (80.0-100.0); Monocytes # (auto) 0.8 10 ^3/uL (0-1.3); Monocytes % (auto) 9.2 % (0.0-12.0); Neutrophils # (auto) 6.6 10 ^3/uL (1.6-8.6); Neutrophils % (auto) 81.1 % (37.0-80.0); Nucleated Red Blood Cells % 0.1 %; Platelet Count (auto) 140 10^3/uL (140-450); Red Blood Cells 3.62 10^6/uL (4.5-5.90); Red Cell Distribution Width 14.8 % (11.8-14.3); White Blood Cell 8.2 10^3/uL (4.4-10.8)
[2024-07-23 21:05] LABS: Base Excess -6.4 mmol/L (-2.0-3.0)
[2024-07-23] MEDS: SODIUM CHLORIDE 0.9% 1,000 ML IV ONE (21:06)
[2024-07-23 21:09] LABS: Alanine Aminotransferase 32 U/L (7-40); Albumin 4.4 g/dL (3.2-4.8); Anion Gap 13 (5-15); Aspartate Aminotransferase 27 U/L (13-40); BUN/Creatinine Ratio 9.9 (10.0-20.0); Bilirubin, Total 0.8 mg/dL (0.2-1.0); Calcium 8.8 mg/dL (8.7-10.4); Carbon Dioxide 22 mmol/L (20-31); Chloride 100 mmol/L (98-107); Lipase 46 U/L (12-53); Total Protein 7.5 g/dL (5.7-8.2)
[2024-07-23 21:10] LABS: Alkaline Phosphatase 178 U/L (46-116); Glucose 139 mg/dL (74-106); Sodium 135 mmol/L (136-145)
[2024-07-23 21:12] LABS: Blood Urea Nitrogen 83 mg/dL (9-23); Potassium 5.6 mmol/L (3.5-5.1)
[2024-07-23 21:13] LABS: Lactic Acid w/Reflex 2.3 mmol/L (0.4-2.0)
[2024-07-24] MEDS: FUROSEMIDE 100 MG/10ML VIAL IV ONE (01:32)
[2024-07-24] MEDS: ASPirin 81 mg TAB PO ONE (01:37)
[2024-07-24] MEDS: hydrALAZINE HCL 20 MG/ML VL IV ONE (01:45)
[2024-07-24] MEDS ORDERED: NITROGLYCERIN 0.4 MG SL TAB SL PRN (02:15)
[2024-07-24] MEDS ORDERED: DEXTROSE (50%) 50ML SYRG IV PRN (02:15)
[2024-07-24] MEDS ORDERED: MORPHINE SULFATE INJ 2 MG/ml SYRG IV PRN (02:15)
[2024-07-24] MEDS: SODIUM ZIRCONIUM CYCL 10 GM PAK PO ONE ×2 (02:28→08:05)
[2024-07-24 02:40] LABS: Basophils # (auto) 0 10 ^3/uL (0-0.2); Basophils % (auto) 0.6 % (0.0-2.0); Eosinophils # (auto) 0 10 ^3/uL (0-0.8); Eosinophils % (auto) 0.2 % (0.0-7.0); Hematocrit 31.1 % (41.0-53.0); Hemoglobin 10.4 g/dL (13.5-17.5); Lymphocytes # (auto) 0.9 10 ^3/uL (0.4-5.4); Lymphocytes % (auto) 11.4 % (10.0-50.0); Mean Corpuscular Hemoglobin 32.8 pg (28.0-32.0); Mean Corpuscular Hgb Conc. 33.3 g/dL (32.0-36.0); Mean Corpuscular Volume 98.3 fL (80.0-100.0); Monocytes # (auto) 0.7 10 ^3/uL (0-1.3); Neutrophils # (auto) 6.1 10 ^3/uL (1.6-8.6); Neutrophils % (auto) 78.8 % (37.0-80.0); Nucleated Red Blood Cells % 0.1 %; Platelet Count (auto) 120 10^3/uL (140-450); Red Blood Cells 3.16 10^6/uL (4.5-5.90); Red Cell Distribution Width 14.5 % (11.8-14.3); White Blood Cell 7.7 10^3/uL (4.4-10.8)
[2024-07-24 02:56] LABS: INR 1.48 (0.9-1.15); Partial Thromboplastin Time 33.6 SEC (24.5-34.5); Prothrombin Time 15.1 sec (9.3-11.8)
[2024-07-24] MEDS: ONDANSETRON HCL 4 MG/2 ML VIAL IV PRN (03:21)
[2024-07-24] MEDS: MORPHINE SULFATE INJ 2 MG/ml SYRG IV PRN (03:21)
[2024-07-24] MEDS: ATORVASTATIN 20 MG TAB PO ONE (03:52)
[2024-07-24 03:57] LABS: Urine Bacteria None Seen /hpf (None Seen)
[2024-07-24] MEDS: hydrALAZINE HCL 20 MG/ML VL IV PRN (04:21)
[2024-07-24 04:28] LABS: Urine Blood 2+ /uL (Negative); Urine Clarity Clear (Clear); Urine Color Yellow (Yellow); Urine Protein, UAD 3+ (Negative); Urine Specific Gravity 1.014 (1.001-1.035); Urine Squamous Epithelial Cell FEW /hpf (<5); Urine Urobilinogen Normal (Negative); Urine WBC 6 /HPF (0-3)
[2024-07-24] MEDS: HEPARIN SODIUM (PORCINE) 5000 UNITS/ML 1ML VIAL IV ONE (05:02)
[2024-07-24] MEDS: HEPARIN DRIP/D5W 100UNITS/ML 250 ML IV SCH (05:05)
[2024-07-24] MEDS: cloNIDine HCL 0.1 MG TAB PO ONE (05:25)
--- NOTE | 2024-07-24 05:41 | DVHHP ---
ADMIT DATE: 07/24/2024 CHIEF COMPLAINT: Coming in for generalized weakness and anxiety. HISTORY OF PRESENT ILLNESS: This is a 73-year-old speaking only male who has a past medical history for end-stage renal disease, on hemodialysis on Mondays, Wednesdays and Fridays, congestive heart failure, hypertension, diabetes mellitus type 2, hyperlipidemia, anemia of chronic disease, who presents to Emergency Room with a chief complaint of generalized weakness and anxiety. Per the medical chart, the ER physician was notified by the daughter that the patient was having weakness at home more than usual and has missed dialysis for the last 2 sessions and wanted to be brought in for further evaluation. The patient himself says he felt more anxious than usual, felt a little bit nauseated today, had no vomiting episodes, no longer feeling nauseous. The patient says he has a little bit of shortness of breath that started yesterday morning. Denies any chest pain complaints. Denies any palpitations or dizziness. The patient does not seem to be a very good historian. The patient per medical records has had multiple recurrent admissions here to [facility] in the past. The patient at this time denies any fevers or chills, any cough or phlegm, diarrhea or constipation, bloody or tarry stools, any urinary frequency, urgency or burning sensation. The patient does make urine at home. PAST MEDICAL HISTORY: End-stage renal disease, congestive heart failure, hypertension, diabetes mellitus type 2, hyperlipidemia and anemia of chronic disease. PAST SURGICAL HISTORY: Left [id number] amputation. SOCIAL HISTORY: No tobacco, no alcohol, no illicit drugs. MEDICATIONS AT HOME: The patient is unable to give me his list of medications. MEDICATION ALLERGIES: No known drug allergies. REVIEW OF SYSTEMS: A 10-point review of systems was covered with the patient and was negative with exception to as per the history of present illness. PHYSICAL EXAMINATION: VITAL SIGNS: Temperature 97.4, pulse of 89, respiratory rate of 15, blood pressure of 215/97, pulse ox about 98% on room air. GENERAL: Seems to be alert, oriented x self, time, and place, not in acute distress, male, sitting up in a bed. HEENT: Normocephalic, atraumatic. Extraocular muscles are intact. Pupils are equally round, react to light and accommodations. Mucous membranes look moist. CARDIOVASCULAR: S1, S2 positive. Systolic murmur is appreciated. No rubs, gallops or murmurs. LUNGS: Seems to be clear to auscultation bilaterally. No wheezing, rhonchi, or rales appreciated. ABDOMEN: Seems to be soft, nontender, nondistended, positive bowel sounds. No guarding or rebound. EXTREMITIES: Lower extremities: The patient has about trace to 1+ pitting edema of the right lower extremity ascending to the upper lehman. Left lower extremity: There is a [id number] amputation. There is no ulcers to the amputation stump site. The patient otherwise has no edema of the left stump area or ascending leg. Upper extremities: The patient does have a fistula in the left upper extremity. There seems to be also a lump within the fistula region that seems to be hard and there is no thrill on examination. There seems to be some sort of a lump on the same region of where his fistula region is that is about 1 inch x 1 inch in size that is nontender to palpation and seems to be kind of hard on examination. NEUROLOGIC: Cranial nerves testing 2-12 overall seems to be intact. LABORATORY EXAMINATION: Shows a white count of 7.7, H and H of 10.4 and 31.3, platelet count of 120,000. Chemistry panel shows sodium of 135, potassium of 5.6, chloride of 100, carbon dioxide of 22, anion gap of 13, BUN of 83 with a creatinine of 8.35, glucose of 139. His last A1c completed on 04/05/2024 was 5.5. Lactic acid initially of 2.3 down to 1.8. Troponins initially of 2863, repeat of 3032, repeat of 3061. AST of 27, ALT of 32. IMAGING: Chest x-ray shows findings may represent congestive heart failure. The patient does show bilateral perihilar and peribronchial thickening with cardiomegaly, no pleural effusions. EKG was completed, showed sinus rhythm, ventricular rate of 89 with a right bundle branch physiology. DIAGNOSES: * Elevated troponins. * Hyperkalemia. * Hypertensive urgency. * Dialysis noncompliance. SECONDARY DIAGNOSES: Diabetes mellitus type 2, essential hypertension. PLAN: The patient will be admitted to medical telemetry floor under observation status. Consultation with Dr. Perirn, Nephrology group has been ordered for dialysis given that the patient missed his last 2 dialysis and is currently with hyperkalemia. The patient did receive a cocktail for hyperkalemia reversal with Lokelma in the Emergency Room with addition of 60 mg of Lasix and 1 liter of fluids. The patient during my assessment does not seem to be drastically in fluid overload, has trace to 1+ edema of the right lower extremity. Lung seems to be clear to auscultation. The patient is satting at about 98% on room air and is not tachypneic. The patient, however, did present with extremely elevated troponins. The patient does seem to have some generalized weakness that started today and some nausea. The patient does not endorse any chest pains. The patient will be initiated on ACS protocol with heparin drip, aspirin, Lipitor, and metoprolol. Cardiology consultation with Dr. Jaymie Flores has been requested. Echocardiogram to be completed in the morning. The patient will be maintained n.p.o. at this point in time, Zofran 4 mg IV p.r.n. Q4H for nausea and vomiting, morphine 2 mg IV p.r.n. Q 4 hours for moderate to severe pain. The patient did receive a dose of hydralazine in the ED and will continue with hydralazine 10 mg IV p.r.n. q. 6 for SBPs greater than 160. Fall risk precautions to be implemented. The patient is a full code. DVT prophylaxis with heparin. Further recommendations will depend on patient's hospital progression. Braeden Acosta MD LM/SOFIA/FLORA TID: [id number] RECEIPT: [id number] MTDD
[2024-07-24 05:43] LABS: Basophils # (auto) 0.1 10 ^3/uL (0-0.2); Basophils % (auto) 0.7 % (0.0-2.0); Eosinophils # (auto) 0 10 ^3/uL (0-0.8); Eosinophils % (auto) 0.2 % (0.0-7.0); Hematocrit 33.4 % (41.0-53.0); Hemoglobin 11.2 g/dL (13.5-17.5); Lymphocytes # (auto) 0.9 10 ^3/uL (0.4-5.4); Lymphocytes % (auto) 10.5 % (10.0-50.0); Mean Corpuscular Hemoglobin 32.8 pg (28.0-32.0); Mean Corpuscular Hgb Conc. 33.4 g/dL (32.0-36.0); Mean Corpuscular Volume 98.2 fL (80.0-100.0); Monocytes # (auto) 0.7 10 ^3/uL (0-1.3); Monocytes % (auto) 8.7 % (0.0-12.0); Neutrophils # (auto) 6.8 10 ^3/uL (1.6-8.6); Neutrophils % (auto) 79.9 % (37.0-80.0); Nucleated Red Blood Cells % 0.1 %; Platelet Count (auto) 128 10^3/uL (140-450); Red Cell Distribution Width 14.7 % (11.8-14.3); White Blood Cell 8.5 10^3/uL (4.4-10.8)
[2024-07-24 07:13] LABS: Chloride 99 mmol/L (98-107)
[2024-07-24 07:14] LABS: Anion Gap 19 (5-15)
[2024-07-24 07:19] VITALS: PULSE 98; RESP 18; O2SAT 92
[2024-07-24 07:19] LABS: BUN/Creatinine Ratio 10.5 (10.0-20.0); Triglycerides 84 mg/dL (< 150)
[2024-07-24 07:20] LABS: LDL Cholesterol 58 mg/dL (< 100)
[2024-07-24 07:21] LABS: Cholesterol 123 mg/dL (< 200); HDL Cholesterol 40 mg/dL (40-59)
[2024-07-24 07:22] LABS: Calcium 8.5 mg/dL (8.7-10.4); Carbon Dioxide 17 mmol/L (20-31); Glucose 109 mg/dL (74-106); Sodium 135 mmol/L (136-145)
[2024-07-24 07:24] LABS: Blood Urea Nitrogen 85 mg/dL (9-23); Potassium 5.7 mmol/L (3.5-5.1)
[2024-07-24] MEDS: ACCU-CHEK COMFORT CURVE STRIP VI SCH (07:25)
[2024-07-24] MEDS: InsuLIN REG 1unit/0.01ml Soln (100units/ml) SC SCH (07:25)
[2024-07-24 07:26] VITALS: PULSE 68; RESP 16; O2SAT 93
[2024-07-24] MEDS ORDERED: PIPERACILLIN-TAZOB 2.25GM 50 ML IV SCH (09:00)
[2024-07-24] MEDS: PIPERACILLIN-TAZOB 3.375GM 100 ML IV ONE (09:32)
[2024-07-24] MEDS: ASPirin-EC 81 mg tab PO SCH (10:43)
[2024-07-24] MEDS: METOPROLOL TARTRATE 25 MG TAB PO SCH (11:05)
[2024-07-24] MEDS ORDERED: SODIUM CHL 0.9% 1000 ML BAG XX ONE (11:15)
[2024-07-24 11:49] LABS: INR 1.39 (0.9-1.15); Partial Thromboplastin Time 32.7 SEC (24.5-34.5); Prothrombin Time 14.3 sec (9.3-11.8)
--- NOTE | 2024-07-24 12:49 | DVHINCON2 ---
Date of service: Jul 24, 2024 Reason for Consultation End-stage renal disease History of Present Illness 73-year-old male with past medical history of end-stage renal disease on hemodialysis, hypertension, diabetes, congestive heart failure, anemia presents to the hospital after missed hemodialysis treatment he presents to the hospital complaining of shortness of breath weakness and confusion. Nephrology consulted due to elevated potassium and hypervolemia. Past Medical History As above Past Surgical History Left arm AV fistula Allergies: Coded Allergies: NO KNOWN ALLERGIES (Unverified , 09/28/23) Home Meds Reported Medications Dorzolamide-Timolol (Dorzolamide Hcl/Timolol M) 1 Ml Lj, 1 ML OP UD for 90 Days, #10 04/05/24 Latanoprost (Xalatan) 0.005 % Lj, 0.005 % OP UD for 25 Days, #2.5 04/05/24 Brimonidine Tartrate-Timolol M (Brimonidine Tartrate/Paul 0.2-0.5 %) 1 Lj Lj, 1 LJ OP UD for 18 Days, #5 04/05/24 Amlodipine Besylate (Amlodipine Besylate) 2.5 Mg Tab, 1 TAB PO DAILY for 90 Days, #90 04/05/24 Atorvastatin Calcium (Lipitor) 20 Mg Tab, 1 TAB PO DAILY, #90 TAB 1 Refill 09/29/23 Acetaminophen (Acetaminophen) 325 Mg Tab, 650 MG PO TIDP PRN for PAIN SCALE 1 THRU 6 for 30 Days, MG 0 Refills 09/29/23 Calcium Acetate (Phosphate Bin (Calcium Acetate) 667 Mg Cap, 667 MG PO TIDWM for 30 Days, MG 09/29/23 Losartan Potassium (Losartan Potassium) 50 Mg Tab, 1 TAB PO BID for 90 Days, #180 09/29/23 Aspirin (Aspirin Low Dose) 81 Mg Tab, 1 TAB PO DAILY 09/29/23 Current Medications Current Medications Medications (Trade) Dose Ordered Sig/Vane Route PRN Reason Start Time Stop Time Status Last Admin Ondansetron HCl (Zofran) 4 mg Q4HP PRN IV NAUSEA / VOMITING 07/24/24 02:15 07/24/24 03:21 Morphine Sulfate 2 mg Q4HPRN PRN IV SEVERE PAIN (7-10 PAIN SCALE) 07/24/24 02:15 07/24/24 03:21 Nitroglycerin (Ntrostat Sublingual) 0.4 mg Q5MINP PRN SL FOR CHEST PAIN 07/24/24 02:15 Morphine Sulfate 2 mg Q30M PRN IV FOR CHEST PAIN 07/24/24 02:15 Aspirin (Ecotrin Enteric Coated Tablet) 81 mg DAILY PO 07/24/24 10:00 Atorvastatin Calcium (Lipitor) 40 mg HS PO 07/24/24 22:00 Metoprolol Tartrate (Lopressor Tablet) 25 mg BID PO 07/24/24 10:00 07/24/24 11:05 Hydralazine HCl (Apresoline Injection) 10 mg Q6HP PRN IV SBP>160 07/24/24 02:15 07/24/24 04:21 Diagnostic Test (Pha) (Accu-Chek Comfort Curve T) 1 strip Q6HR 07/24/24 06:00 07/24/24 12:01 Insulin Human Regular (InsuLIN R) Q6HR SC 07/24/24 06:00 Dextrose 50 ml UD PRN IV Blood Sugar LESS THAN 60 07/24/24 02:15 Heparin Sodium/ Dextrose 250 ml @ 8.5 mls/hr Q24H IV 07/24/24 05:00 07/24/24 05:05 Piperacillin Sod/ Tazobactam Sod 50 ml @ 12.5 mls/hr Q12HR IV 07/24/24 09:00 UNV Piperacillin Sod/ Tazobactam Sod 100 ml @ 25 mls/hr Q12HR IV 07/24/24 22:00 Family History: Patient reports no known family medical history. Review of Systems Shortness of breath and lethargy H&P Exam Vital Signs/I&O Vital Sign Date Time Temp Pulse Resp B/P (MAP) Pulse Ox O2 Delivery O2 Flow Rate FiO2 07/24/24 12:19 65 173/63 07/24/24 12:00 13 91 07/24/24 08:00 98.7 98.7 07/24/24 07:26 Room Air* 0 21 Intake and Output 0 07/23/24 07/24/24 19:00 07:00 Intake Total 1008.5 ml Balance 1008.5 ml Intake IV Total 1008.5 ml Physical Exam Lethargic elderly male Appears in distress Elevated JVD Positive crackles Abdomen is soft No guarding Left arm AV fistula Labs/Diagnostic Data Labs/Diagnostic Data Laboratory Tests Test 07/24/24 12:00 07/24/24 11:08 07/24/24 07:25 07/24/24 05:19 Range/Units POC Glucose 84 100 70-106 mg/dl Prothrombin Time 14.3 H 9.3-11.8 sec Prothrombin Time INR 1.39 H 0.9-1.15 Activated Partial Thromboplast Time 32.7 24.5-34.5 SEC Troponin I High Sensitivity 3880 *H 4154 *H </=54 ng/L White Blood Count 8.5 4.4-10.8 10^3/uL Red Blood Count 3.40 L 4.5-5.90 10^6/uL Hemoglobin 11.2 L 13.5-17.5 g/dL Hematocrit 33.4 L 41.0-53.0 % Mean Corpuscular Volume 98.2 80.0-100.0 fL Mean Corpuscular Hemoglobin 32.8 H 28.0-32.0 pg Mean Corpuscular Hemoglobin Concent 33.4 32.0-36.0 g/dL Red Cell Distribution Width 14.7 H 11.8-14.3 % Platelet Count 128 L 140-450 10^3/uL Mean Platelet Volume 8.3 6.9-10.8 fL Neutrophils (%) (Auto) 79.9 37.0-80.0 % Lymphocytes (%) (Auto) 10.5 10.0-50.0 % Monocytes (%) (Auto) 8.7 0.0-12.0 % Eosinophils (%) (Auto) 0.2 0.0-7.0 % Basophils (%) (Auto) 0.7 0.0-2.0 % Neutrophils # (Auto) 6.8 1.6-8.6 10 ^3/uL Lymphocytes # (Auto) 0.9 0.4-5.4 10 ^3/uL Monocytes # (Auto) 0.7 0-1.3 10 ^3/uL Eosinophils # (Auto) 0 0-0.8 10 ^3/uL Basophils # (Auto) 0.1 0-0.2 10 ^3/uL Nucleated Red Blood Cells 0.1 % Sodium Level 135 L 136-145 mmol/L Potassium Level 5.7 *H 3.5-5.1 mmol/L Chloride Level 99 98-107 mmol/L Carbon Dioxide Level 17 L 20-31 mmol/L Anion Gap 19 H 5-15 Blood Urea Nitrogen 85 *H 9-23 mg/dL Creatinine 8.06 H 0.700-1.30 mg/dL Glomerular Filtration Rate Calc 7 >90 mL/min BUN/Creatinine Ratio 10.5 10.0-20.0 Serum Glucose 109 H 74-106 mg/dL Calcium Level 8.5 L 8.7-10.4 mg/dL Triglycerides Level 84 < 150 mg/dL Cholesterol Level 123 < 200 mg/dL LDL Cholesterol 58 < 100 mg/dL HDL Cholesterol 40 40-59 mg/dL Test 07/24/24 03:55 07/24/24 02:34 07/23/24 23:32 07/23/24 22:56 Range/Units Urine Color Yellow Yellow Urine Clarity Clear Clear Urine pH 7.0 5.0-9.0 Urine Specific [place] 1.014 1.001-1.035 Urine Protein 3+ H Negative Urine Ketones Negative Negative Urine Blood 2+ H Negative /uL Urine Nitrite Negative Negative Urine Bilirubin Negative Negative Urine Urobilinogen Normal Negative mg/dL Urine Leukocyte Esterase Negative Negative /uL Urine RBC 73 0 - 3 /hpf Urine Microscopic WBC 6 H 0-3 /HPF Urine Squamous Epithelial Cells Few <5 /hpf Urine Bacteria None seen None Seen /hpf Urine Glucose 2+ H Normal mg/dL White Blood Count 7.7 4.4-10.8 10^3/uL Red Blood Count 3.16 L 4.5-5.90 10^6/uL Hemoglobin 10.4 L 13.5-17.5 g/dL Hematocrit 31.1 #L 41.0-53.0 % Mean Corpuscular Volume 98.3 80.0-100.0 fL Mean Corpuscular Hemoglobin 32.8 H 28.0-32.0 pg Mean Corpuscular Hemoglobin Concent 33.3 32.0-36.0 g/dL Red Cell Distribution Width 14.5 H 11.8-14.3 % Platelet Count 120 L 140-450 10^3/uL Mean Platelet Volume 8.4 6.9-10.8 fL Neutrophils (%) (Auto) 78.8 37.0-80.0 % Lymphocytes (%) (Auto) 11.4 10.0-50.0 % Monocytes (%) (Auto) 9.0 0.0-12.0 % Eosinophils (%) (Auto) 0.2 0.0-7.0 % Basophils (%) (Auto) 0.6 0.0-2.0 % Neutrophils # (Auto) 6.1 1.6-8.6 10 ^3/uL Lymphocytes # (Auto) 0.9 0.4-5.4 10 ^3/uL Monocytes # (Auto) 0.7 0-1.3 10 ^3/uL Eosinophils # (Auto) 0 0-0.8 10 ^3/uL Basophils # (Auto) 0 0-0.2 10 ^3/uL Nucleated Red Blood Cells 0.1 % Prothrombin Time 15.1 H 9.3-11.8 sec Prothrombin Time INR 1.48 H 0.9-1.15 Activated Partial Thromboplast Time 33.6 24.5-34.5 SEC Troponin I High Sensitivity 3061 *H </=54 ng/L POC Glucose 115 H 70-106 mg/dl Test 07/23/24 22:35 07/23/24 21:36 07/23/24 20:39 07/23/24 20:35 Range/Units Lactic Acid Level 1.8 2.3 *H 0.4-2.0 mmol/L Troponin I High Sensitivity 3032 *H 2863 *H </=54 ng/L White Blood Count 8.2 4.4-10.8 10^3/uL Red Blood Count 3.62 L 4.5-5.90 10^6/uL Hemoglobin 11.7 L 13.5-17.5 g/dL Hematocrit 35.7 L 41.0-53.0 % Mean Corpuscular Volume 98.6 80.0-100.0 fL Mean Corpuscular Hemoglobin 32.2 H 28.0-32.0 pg Mean Corpuscular Hemoglobin Concent 32.7 32.0-36.0 g/dL Red Cell Distribution Width 14.8 H 11.8-14.3 % Platelet Count 140 140-450 10^3/uL Mean Platelet Volume 8.7 6.9-10.8 fL Neutrophils (%) (Auto) 81.1 H 37.0-80.0 % Lymphocytes (%) (Auto) 8.8 L 10.0-50.0 % Monocytes (%) (Auto) 9.2 0.0-12.0 % Eosinophils (%) (Auto) 0.1 0.0-7.0 % Basophils (%) (Auto) 0.8 0.0-2.0 % Neutrophils # (Auto) 6.6 1.6-8.6 10 ^3/uL Lymphocytes # (Auto) 0.7 0.4-5.4 10 ^3/uL Monocytes # (Auto) 0.8 0-1.3 10 ^3/uL Eosinophils # (Auto) 0 0-0.8 10 ^3/uL Basophils # (Auto) 0.1 0-0.2 10 ^3/uL Nucleated Red Blood Cells 0.1 % Sodium Level 135 L 136-145 mmol/L Potassium Level 5.6 *H 3.5-5.1 mmol/L Chloride Level 100 98-107 mmol/L Carbon Dioxide Level 22 20-31 mmol/L Anion Gap 13 5-15 Blood Urea Nitrogen 83 *H 9-23 mg/dL Creatinine 8.35 H 0.700-1.30 mg/dL Glomerular Filtration Rate Calc 6 >90 mL/min BUN/Creatinine Ratio 9.9 L 10.0-20.0 Serum Glucose 139 H 74-106 mg/dL Calcium Level 8.8 8.7-10.4 mg/dL Total Bilirubin 0.8 0.2-1.0 mg/dL Aspartate Amino Transferase (AST) 27 13-40 U/L Alanine Aminotransferase (ALT) 32 7-40 U/L Alkaline Phosphatase 178 H 46-116 U/L B-Type Natriuretic Peptide > 5000.00 0-100 pg/mL Total Protein 7.5 5.7-8.2 g/dL Albumin 4.4 3.2-4.8 g/dL Lipase 46 12-53 U/L Blood Gas Specimen Type Arterial Blood Gas Sample Site Right radial Blood Gas Patient Temperature 37.0 Arterial Blood Date Drawn [id number] Arterial Blood pH 7.430 7.350-7.450 Arterial Blood Partial Pressure CO2 25.1 L 35.0-48.0 mmHg Arterial Blood Partial Pressure O2 66.0 L 83.0-108.0 mmHg Arterial Blood HCO3 16.3 L 21.0-28.0 mmol/L Arterial Blood Oxygen Saturation 90.2 L 94.0-98.0 % Arterial Blood Base Excess -6.4 L -2.0-3.0 mmol/L Arterial Blood Oxyhemoglobin 88.8 L 94.0-98.0 % Arterial Blood Carboxyhemoglobin 1.2 0.5-1.5 % Arterial Blood Methemoglobin 0.3 0.0-1.5 % Fer Test Yes Blood Gas Total Hemoglobin 12.30 L 13.5-17.5 g/dL Blood Gas Modality Room air FiO2 % 21.0 Assessment End-stage renal disease on hemodialysis Hypertension Elevated troponin Hyperkalemia Fluid overload; hypervolemia Missed hemodialysis treatment Hemodialysis urgently for metabolic and volume control fluid removal as tolera teetee Avoid hypotension Dialysis via left arm AV fistula. If current access is unable to tolerate dialysis treatment then we will recommend a fistulogram of the left arm Rest of care as per primary medical attending Plan discussed with: Patient WILLIAM MENDOZA MD Jul 24, 2024 12:49
--- NOTE | 2024-07-24 12:57 | DVH ---
US LT Upper DVT HISTORY: SWOLLEN AT FISTULA SITE, EVAL FOR FISTULA OBSTRUCTION COMPARISON: None TECHNIQUE: Transverse and longitudinal sonographic images were obtained of the left arm AV fistula wi th grayscale, color Doppler, and spectral Doppler analysis. FINDINGS: Location: AV fistula extends between the Brachial artery and Cephalic vein. Patency: Wall calcifications are noted in the inflow brachial artery. Suggestion of stenosis in the o utflow subclavian vein. No thrombus seen. Pseudoaneurysms/Hematomas/Fluid collections: None Other: Branch vessel noted arising from the distal AVF region. Flow Characteristics: Inflow brachial artery: Peak systolic velocity is 518 cm/s. Anastomosis: Peak systolic velocity is 269 cm/s. Outflow cephalic vein: - Proximal AVF: Peak systolic velocity is 260 cm/s. 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 Peak systolic velocity is 60 cm/s. - Distal AVF: The distal AVF measures 0.6 cm. Peak systolic velocity is 246 cm/s. - AVF Outflow: Peak systolic velocity is 111 cm/s. Outflow subclavian vein (Downstream to the AVF): - Peak systolic velocity is 23 cm/s. Blunted venous waveform is noted. Further downstream in the subc lavian vein, the peak systolic velocity is 245 cm/s, with aliasing noted. IMPRESSION: 1. 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 2. 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 3. Otherwise patent AVF without thrombus.
[2024-07-24 13:18] LABS: Hepatitis C Antibody Negative (Negative)
[2024-07-24 14:27] LABS: Hepatitis A Ab IgM Negative; Hepatitis B Core IgM Negative (Negative)
[2024-07-24 15:16] VITALS: BP 148/43; PULSE 57; RESP 16; TEMP 97.7; O2SAT 96
[2024-07-24 17:00] VITALS: BP 152/66; PULSE 87; RESP 16; TEMP 97.7; O2SAT 92
--- NOTE | 2024-07-24 18:37 | DVHSR ---
APPROVED REPORT EXAM: LIMITED Two-dimensional and M-mode echocardiogram with Doppler and color Doppler. Blood Pressure: 152/53 mmHg INDICATION Wall motion abnormality RISK FACTORS Height: 5'9", Weight: 154 DIMENSIONS LVDd5.6 (3.8-5.7cm)LA (2D) (1.9-4.0cm)Aortic Root (2.0-3.7cm) LVDs4.6 (2.5-4.0cm)LA (MM) (1.9-4.0cm)Aortic Cusp Exc (1.5-2.0cm) EF (%) 35.0 (55-70%)Rt. Atrium (1.9-4.0cm)Asc. Aorta cm IVSd1.3 (0.7-1.1cm)RV (D) (1.8-2.4cm) PWd1.3 (0.7-1.1cm) Mitral Valve MitralMitral Stenosis E/A ratio0.02D MVAcm2 Tricuspid Valve TR Velocity3.36m/s [id number] Other Information Quality : Technically LimitedRhythm : Technically limited study due to Limited repeat to eval ef. Conclusion SEVERE LVH AND SEVERE LV DIASTOLIC DYSFUNCTION MODERATE DEGREE SYSTOLIC LV DYSFUNCTION LV EF IS 35% AND IS MODERATELY REDUCED MODERATELY DILATED RV,RA AND LA MILD GLOBAL PERICARDIAL EFFUSION CALCIFIED MITRAL ANNULUS
[2024-07-24] MEDS: diphenhdrAMINE HCL 50 MG/1 ML VL IV ONE (19:42)
[2024-07-24] MEDS: HALOPERIDOL LACTATE 5 MG/ML INJ VIAL IM ONE (20:33)
[2024-07-24 21:00] VITALS: BP 183/67; PULSE 62; RESP 16; TEMP 97.5
[2024-07-24] MEDS: ATORVASTATIN 20 MG TAB PO SCH (22:56)
[2024-07-24] MEDS: PIPERACILLIN-TAZOB 3.375GM 100 ML IV SCH (23:15)
[2024-07-25] VITALS (8 sets, daily range): BP systolic 111–146; BP diastolic 46–87; PULSE 60–72; RESP 17–18; TEMP 37.1; O2SAT 94–96
--- NOTE | 2024-07-25 00:33 | DVHINCON2 ---
Date of service: Jul 24, 2024 Referring Physician Melani Reason for Consultation Elevated troponin History of Present Illness This is a 73 year old male with a PMH of CHF, DM, ESRD, High Lipids, HTN who was brought in by EMS for complaint of generalized weakness. Per EMS, patient is on dialysis and receives treatment M, W, F and Sat and family states he missed dialysis treatment for the past 2 days due to ''feeling weak." Patient's granddaughter called EMS after she noticed patient appearing more weak than usual and wanted him evaluated. Per EMS, the patient had a BP of 215/97. Troponin 2863 > 3032 > 3061 > 4154 > 3880. Chest x-ray findings may represent CHF. Patient was admitted to the hospital. I am asked to consult on this patient. Family History: Patient reports no known family medical history. Allergies: Coded Allergies: NO KNOWN ALLERGIES (Unverified , 09/28/23) Home Meds Reported Medications Dorzolamide-Timolol (Dorzolamide Hcl/Timolol M) 1 Ml Lj, 1 ML OP UD for 90 Days, #10 04/05/24 Latanoprost (Xalatan) 0.005 % Lj, 0.005 % OP UD for 25 Days, #2.5 04/05/24 Brimonidine Tartrate-Timolol M (Brimonidine Tartrate/Paul 0.2-0.5 %) 1 Lj Lj, 1 LJ OP UD for 18 Days, #5 04/05/24 Amlodipine Besylate (Amlodipine Besylate) 2.5 Mg Tab, 1 TAB PO DAILY for 90 Days, #90 04/05/24 Atorvastatin Calcium (Lipitor) 20 Mg Tab, 1 TAB PO DAILY, #90 TAB 1 Refill 09/29/23 Acetaminophen (Acetaminophen) 325 Mg Tab, 650 MG PO TIDP PRN for PAIN SCALE 1 THRU 6 for 30 Days, MG 0 Refills 09/29/23 Calcium Acetate (Phosphate Bin (Calcium Acetate) 667 Mg Cap, 667 MG PO TIDWM for 30 Days, MG 09/29/23 Losartan Potassium (Losartan Potassium) 50 Mg Tab, 1 TAB PO BID for 90 Days, #180 09/29/23 Aspirin (Aspirin Low Dose) 81 Mg Tab, 1 TAB PO DAILY 09/29/23 Current Medications Current Medications Medications (Trade) Dose Ordered Sig/Vane Route PRN Reason Start Time Stop Time Status Last Admin Ondansetron HCl (Zofran) 4 mg Q4HP PRN IV NAUSEA / VOMITING 07/24/24 02:15 07/24/24 03:21 Morphine Sulfate 2 mg Q4HPRN PRN IV SEVERE PAIN (7-10 PAIN SCALE) 07/24/24 02:15 07/24/24 03:21 Nitroglycerin (Ntrostat Sublingual) 0.4 mg Q5MINP PRN SL FOR CHEST PAIN 07/24/24 02:15 Morphine Sulfate 2 mg Q30M PRN IV FOR CHEST PAIN 07/24/24 02:15 Aspirin (Ecotrin Enteric Coated Tablet) 81 mg DAILY PO 07/24/24 10:00 Atorvastatin Calcium (Lipitor) 40 mg HS PO 07/24/24 22:00 Metoprolol Tartrate (Lopressor Tablet) 25 mg BID PO 07/24/24 10:00 07/24/24 11:05 Hydralazine HCl (Apresoline Injection) 10 mg Q6HP PRN IV SBP>160 07/24/24 02:15 07/24/24 04:21 Diagnostic Test (Pha) (Accu-Chek Comfort Curve T) 1 strip Q6HR 07/24/24 06:00 07/24/24 17:41 Insulin Human Regular (InsuLIN R) Q6HR SC 07/24/24 06:00 Dextrose 50 ml UD PRN IV Blood Sugar LESS THAN 60 07/24/24 02:15 Heparin Sodium/ Dextrose 250 ml @ 8.5 mls/hr Q24H IV 07/24/24 05:00 07/24/24 05:05 Piperacillin Sod/ Tazobactam Sod 50 ml @ 12.5 mls/hr Q12HR IV 07/24/24 09:00 UNV Piperacillin Sod/ Tazobactam Sod 100 ml @ 25 mls/hr Q12HR IV 07/24/24 22:00 Review of Systems Constitutional: reports: fatigue, malaise, weakness; denies: chills, diaphoresis, fever, sweats, others EENTM: denies: blurred vision, double vision, ear bleeding, ear discharge, ear drainage, ear pain, ear ringing, eye pain, eye redness, hearing loss, mouth pain, mouth swelling, nasal discharge, nose bleeding, nose congestion, nose pain, photophobia, tearing, throat pain, throat swelling, voice changes, others Respiratory: denies: cough, hemoptysis, orthopnea, SOB at rest, shortness of breath, SOB with excertion, stridor, wheezing, others Cardiovascular: denies: chest pain, dizzy spells, diaphoresis, Dyspnea on exertion, edema, irregular heart beat, left arm pain, lightheadedness, palpitations, PND, syncope, others Gastrointestinal: denies: abdomen distended, abdominal pain, blood streaked bowels, constipated, diarrhea, dysphagia, difficulty swallowing, hematemesis, melena, nausea, poor appetite, poor fluid intake, rectal bleeding, rectal pain, vomiting, others Genitourinary: denies: burning, dysuria, flank pain, frequency, hematuria, incontinence, penile discharge, penile sore, pain, testicle pain, testicle swelling, urgency, others Neurological: denies: dizziness, fainting, headache, left sided numbness, left sided weakness, numbness, paresthesia, pre-existing deficit, right sided numbness, right sided weakness, seizure, speech problems, tingling, tremors, weakness, others Musculoskeletal: denies: back pain, gout, joint pain, joint swelling, muscle pain, muscle stiffness, neck pain, others Integumetry: denies: bruises, change in color, change in hair/nails, dryness, laceration, lesions, lumps, rash, wounds, others Allergic/Immunocompromised: denies: Difficulty Healing, Frequent Infections, Hives, Itching, others Hematologic/Lymphatic: denies: anemia, blood clots, easy bleeding, easy bruising, swollen glands, others Endocrine: denies: excessive hunger, excessive sweating, excessive thirst, excessive urination, flushing, intolerance to cold, intolerance to heat, unexplained weight gain, unexplained weight loss, others Psychiatric: denies: anxiety, bipolar disorder, depression, hopeless, panic disorder, schizophrenia, sleepless, suicidal, others All Other Systems: Reviewed and Negative (see HPI) Vital Signs Vital Signs Date Time Temp Pulse Resp B/P (MAP) Pulse Ox O2 Delivery O2 Flow Rate FiO2 07/24/24 21:00 97.5 62 16 183/67 (105) 97.5 07/24/24 17:00 92 07/24/24 15:18 Room Air* 0 21 Physical Exam GENERAL: Awake, alert, oriented. LUNGS: Clear. CARDIOVASCULAR: Heart sounds are good. ABDOMEN: Soft. EXT: RLE edema, LLE BKA. Labs/Diagnostic Data Labs Test 07/24/24 17:33 07/24/24 11:08 07/24/24 05:19 07/24/24 03:55 Range/Units POC Glucose 112 H 70-106 mg/dl Prothrombin Time 14.3 H 9.3-11.8 sec Prothrombin Time INR 1.39 H 0.9-1.15 Activated Partial Thromboplast Time 32.7 24.5-34.5 SEC Troponin I High Sensitivity 3880 *H </=54 ng/L White Blood Count 8.5 4.4-10.8 10^3/uL Red Blood Count 3.40 L 4.5-5.90 10^6/uL Hemoglobin 11.2 L 13.5-17.5 g/dL Hematocrit 33.4 L 41.0-53.0 % Mean Corpuscular Volume 98.2 80.0-100.0 fL Mean Corpuscular Hemoglobin 32.8 H 28.0-32.0 pg Mean Corpuscular Hemoglobin Concent 33.4 32.0-36.0 g/dL Red Cell Distribution Width 14.7 H 11.8-14.3 % Platelet Count 128 L 140-450 10^3/uL Mean Platelet Volume 8.3 6.9-10.8 fL Neutrophils (%) (Auto) 79.9 37.0-80.0 % Lymphocytes (%) (Auto) 10.5 10.0-50.0 % Monocytes (%) (Auto) 8.7 0.0-12.0 % Eosinophils (%) (Auto) 0.2 0.0-7.0 % Basophils (%) (Auto) 0.7 0.0-2.0 % Neutrophils # (Auto) 6.8 1.6-8.6 10 ^3/uL Lymphocytes # (Auto) 0.9 0.4-5.4 10 ^3/uL Monocytes # (Auto) 0.7 0-1.3 10 ^3/uL Eosinophils # (Auto) 0 0-0.8 10 ^3/uL Basophils # (Auto) 0.1 0-0.2 10 ^3/uL Nucleated Red Blood Cells 0.1 % Sodium Level 135 L 136-145 mmol/L Potassium Level 5.7 *H 3.5-5.1 mmol/L Chloride Level 99 98-107 mmol/L Carbon Dioxide Level 17 L 20-31 mmol/L Anion Gap 19 H 5-15 Blood Urea Nitrogen 85 *H 9-23 mg/dL Creatinine 8.06 H 0.700-1.30 mg/dL Glomerular Filtration Rate Calc 7 >90 mL/min BUN/Creatinine Ratio 10.5 10.0-20.0 Serum Glucose 109 H 74-106 mg/dL Calcium Level 8.5 L 8.7-10.4 mg/dL Triglycerides Level 84 < 150 mg/dL Cholesterol Level 123 < 200 mg/dL LDL Cholesterol 58 < 100 mg/dL HDL Cholesterol 40 40-59 mg/dL Hepatitis A IgM Antibody Negative Hepatitis B Core IgM Antibody Negative Negative Hepatitis C Antibody Negative Negative Urine Color Yellow Yellow Urine Clarity Clear Clear Urine pH 7.0 5.0-9.0 Urine Specific [place] 1.014 1.001-1.035 Urine Protein 3+ H Negative Urine Ketones Negative Negative Urine Blood 2+ H Negative /uL Urine Nitrite Negative Negative Urine Bilirubin Negative Negative Urine Urobilinogen Normal Negative mg/dL Urine Leukocyte Esterase Negative Negative /uL Urine RBC 73 0 - 3 /hpf Urine Microscopic WBC 6 H 0-3 /HPF Urine Squamous Epithelial Cells Few <5 /hpf Urine Bacteria None seen None Seen /hpf Urine Glucose 2+ H Normal mg/dL Test 07/23/24 22:35 07/23/24 20:39 07/23/24 20:35 Range/Units Lactic Acid Level 1.8 0.4-2.0 mmol/L Total Bilirubin 0.8 0.2-1.0 mg/dL Aspartate Amino Transferase (AST) 27 13-40 U/L Alanine Aminotransferase (ALT) 32 7-40 U/L Alkaline Phosphatase 178 H 46-116 U/L B-Type Natriuretic Peptide > 5000.00 0-100 pg/mL Total Protein 7.5 5.7-8.2 g/dL Albumin 4.4 3.2-4.8 g/dL Lipase 46 12-53 U/L Blood Gas Specimen Type Arterial Blood Gas Sample Site Right radial Blood Gas Patient Temperature 37.0 Arterial Blood Date Drawn [id number] Arterial Blood pH 7.430 7.350-7.450 Arterial Blood Partial Pressure CO2 25.1 L 35.0-48.0 mmHg Arterial Blood Partial Pressure O2 66.0 L 83.0-108.0 mmHg Arterial Blood HCO3 16.3 L 21.0-28.0 mmol/L Arterial Blood Oxygen Saturation 90.2 L 94.0-98.0 % Arterial Blood Base Excess -6.4 L -2.0-3.0 mmol/L Arterial Blood Oxyhemoglobin 88.8 L 94.0-98.0 % Arterial Blood Carboxyhemoglobin 1.2 0.5-1.5 % Arterial Blood Methemoglobin 0.3 0.0-1.5 % Fer Test Yes Blood Gas Total Hemoglobin 12.30 L 13.5-17.5 g/dL Blood Gas Modality Room air FiO2 % 21.0 Assessment Elevated troponins. Hyperkalemia. Hypertensive urgency. Dialysis noncompliance. Plan/Recommendation I agree with your ongoing assessment and care of plan. Telemetry reviewed. Echocardiogram. Aspirin, Lipitor, Metoprolol. Heparin drip per pharmacy. Morphine for pain management. IV antibiotics as ordered. IV Hydralazine for SBP >160. Additional plan as per the hospital course. A total of 45 minutes was spent reviewing the patient record, examining the patient, making a diagnostic and therapeutic plan, discussing this plan with medical personnel, following up on diagnostic studies and following the patient for clinical stability excluding any and all procedures. At least 50% of this time was spent in direct, [id number] contact. Plan discussed with: Patient ELE CID MD Jul 24, 2024 21:25
[2024-07-25 06:41] LABS: Anion Gap 12 (5-15); Carbon Dioxide 25 mmol/L (20-31); Chloride 100 mmol/L (98-107); Potassium 4.5 mmol/L (3.5-5.1); Sodium 137 mmol/L (136-145)
[2024-07-25 06:44] LABS: Calcium 8.3 mg/dL (8.7-10.4)
[2024-07-25 06:47] LABS: BUN/Creatinine Ratio 9.3 (10.0-20.0)
[2024-07-25 06:50] LABS: Blood Urea Nitrogen 58 mg/dL (9-23); Glucose 149 mg/dL (74-106); Phosphorus 6.5 mg/dL (2.4-5.1)
--- NOTE | 2024-07-25 07:06 | DVHDS2 ---
New Physician D'charge PN Admitting Diagnosis Admitting Diagnosis weakness Discharge Diagnosis fluid overload chf esrd on hd nstemi Operations or Procedures none Reason(s) For Hospitalization Surgery Hospital Course 73 M who comes to ER for weakness. He has known esrd on HD and he was noted to be fluid overloaded. His troponin peaked at 4k and he was admitted and started on iv heparin gtt and nephrology saw him. He underwent HD here in hospital with fluid removal. He was seen by cardio and echo showed EF 35% with LVH and diastolic dysfunction, please refer to echo report. Heparin gtt was DCed due to hematuria and he was monitored on tele. HIs WBC is nml and chem panel back to his baseline after HD treatment. He has been [facility] and pt will continue his nml HD outpt as per his outpt schedule. Treatment Plan Discharge Condition of Discharge Good Disposition Home Discharge Instructions Diet: Cardiac 2g Na,low cholest Activity: No Restrictions, As Tolerated Medications: see med sheet Follow Up Care Follow Up/Referral: pcp cardio Discharge Statement: "Patient was advised to return to the ER or call 911 if any headaches, dizziness, shortness of breath, chest pain, abdominal pain, bleeding, fevers, or worsening of medical condition. Patient was counseled about treatment plan, medications, possible side effects, patientverbalized understanding. All questions were answered to the best of my ability. This discharge took greater then 30 minutes in planning, reviewing docum entation, counseling the patient, and discussing with other team members." TIGIST BOX MD Jul 25, 2024 07:06
[2024-07-25 10:05] LABS: Hepatitis B Surface Antigen Negative (Negative)
--- NOTE | 2024-07-25 10:41 | ECG ---
[facility] Test Date: 2024-07-23 Test Time: 19:54:34 Pat Name: NAV JOAQUIN Department: ED Room: 0206T A Gender: M Tile Layer Helper: er : 1950 Requested By: EMERGENCY EMERGENCY Order Number: [id number] Reading MD: Yuri Castro Measurements Intervals [place] Rate: 93 P: -15 ID: 187 QRS: 131 QRSD: 157 T: -28 QT: 428 QTc: 533 Interpretive Statements Sinus rhythm RBBB and LPFB Electronically Signed On 07-27-2024 22:00:01 PDT by Yuri Castro Please click the below link to view image of tracing.
--- NOTE | 2024-07-25 10:47 | ECG ---
[facility] Test Date: 2024-07-23 Test Time: 21:30:28 Pat Name: NAV JOAQUIN Department: ED Room: 0206T A Gender: M Customer Relations Consultant: ROAXNNA : 1950 Requested By: UMA THOMAS Order Number: [id number] Reading MD: Yuri Castro Measurements Intervals [place] Rate: 89 P: 49 RI: 201 QRS: 162 QRSD: 163 T: -30 QT: 447 QTc: 544 Interpretive Statements Sinus rhythm Right bundle branch block Electronically Signed On 07-27-2024 22:00:09 PDT by Yuri Castro Please click the below link to view image of tracing.
[2024-07-25 11:32] LABS: Basophils # (auto) 0.1 10 ^3/uL (0-0.2); Basophils % (auto) 0.8 % (0.0-2.0); Eosinophils # (auto) 0.1 10 ^3/uL (0-0.8); Hematocrit 32.7 % (41.0-53.0); Hemoglobin 11.1 g/dL (13.5-17.5); Lymphocytes # (auto) 1.1 10 ^3/uL (0.4-5.4); Lymphocytes % (auto) 9.7 % (10.0-50.0); Mean Corpuscular Hemoglobin 33.1 pg (28.0-32.0); Mean Corpuscular Hgb Conc. 34.1 g/dL (32.0-36.0); Mean Corpuscular Volume 97.1 fL (80.0-100.0); Monocytes # (auto) 1.3 10 ^3/uL (0-1.3); Monocytes % (auto) 11.3 % (0.0-12.0); Neutrophils # (auto) 8.6 10 ^3/uL (1.6-8.6); Neutrophils % (auto) 77.2 % (37.0-80.0); Platelet Count (auto) 141 10^3/uL (140-450); Red Blood Cells 3.36 10^6/uL (4.5-5.90); Red Cell Distribution Width 14.6 % (11.8-14.3); White Blood Cell 11.1 10^3/uL (4.4-10.8)
--- NOTE | 2024-07-25 18:48 | DVHPN2 ---
Progress Note Date Seen: Jul 25, 2024 Medical Necessity Reason Pt with a Central, PICC or Fol: No Subjective Patient reports: No new complaints (sitter bedside) Review of Systems: Deferred Objective vital signs Vital Sign Date Time Temp Pulse Resp B/P (MAP) Pulse Ox O2 Delivery O2 Flow Rate FiO2 07/25/24 17:00 98.4 65 18 146/46 (79) 94 98.4 07/25/24 08:00 Room Air* 0 21 Total Intake and Output 07/24/24 07/24/24 07/25/24 15:00 23:00 07:00 Intake Total 8.5 ml 0 ml 808 ml Output Total 300 ml Balance 8.5 ml 0 ml 508 ml medications Current Medications Medications Dose Ordered Sig/Vane Route Start Time Stop Time Status Last Admin Dose Admin Ondansetron HCl 4 mg Q4HP PRN IV 07/24/24 02:15 07/24/24 03:21 4 MG Morphine Sulfate 2 mg Q4HPRN PRN IV 07/24/24 02:15 07/25/24 04:31 2 MG Nitroglycerin 0.4 mg Q5MINP PRN SL 07/24/24 02:15 Morphine Sulfate 2 mg Q30M PRN IV 07/24/24 02:15 Aspirin 81 mg DAILY PO 07/24/24 10:00 07/25/24 11:13 81 MG Atorvastatin Calcium 40 mg HS PO 07/24/24 22:00 07/24/24 22:56 40 MG Metoprolol Tartrate 25 mg BID PO 07/24/24 10:00 07/25/24 11:15 25 MG Hydralazine HCl 10 mg Q6HP PRN IV 07/24/24 02:15 07/24/24 21:16 10 MG Diagnostic Test (Pha) 1 strip Q6HR 07/24/24 06:00 07/25/24 12:16 1 STRIP Insulin Human Regular Q6HR SC 07/24/24 06:00 07/25/24 12:16 2 UNITS Dextrose 50 ml UD PRN IV 07/24/24 02:15 Heparin Sodium/ Dextrose 250 ml @ 8.5 mls/hr Q24H IV 07/24/24 05:00 07/24/24 05:05 8.5 MLS/HR Piperacillin Sod/ Tazobactam Sod 50 ml @ 12.5 mls/hr Q12HR IV 07/24/24 09:00 UNV Piperacillin Sod/ Tazobactam Sod 100 ml @ 25 mls/hr Q12HR IV 07/24/24 22:00 07/25/24 11:15 25 MLS/HR Examination: MSK:Abnormal (left bka) laboratory and microbiology Laboratory Tests 07/25/24 11:02 07/25/24 05:16 Test 07/25/24 05:16 Range/Units Serum Glucose 149 H 74-106 mg/dL Microbiology Date/Time Source Procedure Growth Status 07/25/24 03:48 Nose MRSA Screen - Final Complete 07/24/24 11:14 Blood Blood Culture - Preliminary NO GROWTH AFTER 24 HOURS OF INCUBATION. Resulted Problem List/Assessment/Plan Problem List/Assessment/Plan End-stage renal disease on hemodialysis Hypertension Elevated troponin Hyperkalemia Fluid overload; hypervolemia Missed hemodialysis treatment recs HD tomorrow if still here if not resume outpt HD Plan discussed with: Other DARIEL POTTER MD Jul 25, 2024 18:48
--- NOTE | 2024-07-25 23:31 | DVHPN2 ---
Progress Note - Dictate Date Seen: Jul 25, 2024 Medical Necessity Reason Pt with a Central, PICC or Fol: No Subjective Patient was seen and evaluated in follow up. No overnight events. Sitter at bedside. WBC 11.1, BUN 58, Household Appliance Assembler 6.21, CA8.3, Phos 6.5. Echo is ordered. Telemetry reviewed. vital signs Vital Sign Date Time Temp Pulse Resp B/P (MAP) Pulse Ox O2 Delivery O2 Flow Rate FiO2 07/25/24 21:23 61 157/54 07/25/24 20:00 Room Air* 0 21 07/25/24 17:00 98.4 18 94 98.4 Total Intake and Output 07/24/24 07/24/24 07/25/24 15:00 23:00 07:00 Intake Total 8.5 ml 0 ml 808 ml Output Total 300 ml Balance 8.5 ml 0 ml 508 ml medications Current Medications Medications Dose Ordered Sig/Vane Route Start Time Stop Time Status Last Admin Dose Admin Ondansetron HCl 4 mg Q4HP PRN IV 07/24/24 02:15 07/24/24 03:21 4 MG Morphine Sulfate 2 mg Q4HPRN PRN IV 07/24/24 02:15 07/25/24 04:31 2 MG Nitroglycerin 0.4 mg Q5MINP PRN SL 07/24/24 02:15 Morphine Sulfate 2 mg Q30M PRN IV 07/24/24 02:15 Aspirin 81 mg DAILY PO 07/24/24 10:00 07/25/24 11:13 81 MG Atorvastatin Calcium 40 mg HS PO 07/24/24 22:00 07/25/24 21:23 40 MG Metoprolol Tartrate 25 mg BID PO 07/24/24 10:00 07/25/24 21:23 25 MG Hydralazine HCl 10 mg Q6HP PRN IV 07/24/24 02:15 07/24/24 21:16 10 MG Diagnostic Test (Pha) 1 strip Q6HR 07/24/24 06:00 07/25/24 12:16 1 STRIP Insulin Human Regular Q6HR SC 07/24/24 06:00 07/25/24 12:16 2 UNITS Dextrose 50 ml UD PRN IV 07/24/24 02:15 Heparin Sodium/ Dextrose 250 ml @ 8.5 mls/hr Q24H IV 07/24/24 05:00 07/24/24 05:05 8.5 MLS/HR Piperacillin Sod/ Tazobactam Sod 50 ml @ 12.5 mls/hr Q12HR IV 07/24/24 09:00 UNV Piperacillin Sod/ Tazobactam Sod 100 ml @ 25 mls/hr Q12HR IV 07/24/24 22:00 07/25/24 11:15 25 MLS/HR objective GENERAL: Awake, alert, oriented. LUNGS: Clear. CARDIOVASCULAR: Heart sounds are good. ABDOMEN: Soft. EXT: RLE edema, LLE BKA. laboratory and microbiology Laboratory Tests 07/25/24 11:02 07/25/24 05:16 Test 07/25/24 05:16 Range/Units Serum Glucose 149 H 74-106 mg/dL Problem List Elevated troponins. Hyperkalemia. Hypertensive urgency. Dialysis noncompliance. Assessment/Plan Continued all current supportive medical care. Echocardiogram. Aspirin, Lipitor, Metoprolol. Heparin drip per pharmacy. Morphine for pain management. IV antibiotics as ordered. IV Hydralazine for SBP >160. Additional plan as per the hospital course. Plan discussed with: Patient ELE CID MD Jul 25, 2024 23:31
== END 2024-07-25 21:43 | disposition home or self-care (01) ==
LOC: ER 19:52 → EDBD 19:52 → OVERFLOW 07-24 02:02 → TELE-CENTR 07-24 15:17
PROVIDERS: ADMIT Hospitalist; ATTEND Hospitalist
DX: E87.70 Fluid overload, unspecified (principal); I13.2 Hypertensive heart and chronic kidney disease with heart failure and with stage 5 chronic kidney disease, or end stage renal disease; E11.22 Type 2 diabetes mellitus with diabetic chronic kidney disease; D63.1 Anemia in chronic kidney disease; N18.6 End stage renal disease; I50.9 Heart failure, unspecified; I16.0 Hypertensive urgency; D84.9 Immunodeficiency, unspecified; R11.2 Nausea with vomiting, unspecified; E78.5 Hyperlipidemia, unspecified; E87.5 Hyperkalemia; E87.4 Mixed disorder of acid-base balance; F41.9 Anxiety disorder, unspecified; I21.4 Non-ST elevation (NSTEMI) myocardial infarction; Z89.512 Acquired absence of left leg below knee; Z99.2 Dependence on renal dialysis; Z91.158 Patient's noncompliance with renal dialysis for other reason
CPT/HCPCS: 36415; 36600; 71045; 80048; 80053; 80061; 80074; 81001; 82805; 82962; 83605; 83690; 83880; 84100; 84484; 85025; 85610; 85730; 87040; 87081; 90935; 93005; 93306; 93971; 96361; 96365; 96366; 96367; 96372; 96375; 96376; 99285; G0378; J0360; J1200; J1630; J1644; J1815; J1940; J2270; J2405; J2543

== ENCOUNTER 2024-09-25 23:17 | Inpatient (IN) | payer OTHER, MEDICAID ==
[~2024-09-25] VITALS: Ht 175.3 cm; Wt 68.0 kg
--- NOTE | 2024-09-25 19:44 | ED.PDOC ---
History of Present Illness HPI Comments 73 y/o M presents with relative for c/o unhealing right foot wound. Per relative, patient has a history of chronic multiple scabs to his right foot that would, normally, heal on their own after falling off. Patient's food is reported to not healing after recent scab on his inner side of his foot fell off. Patient has additional history of anemia, CHF, DM II, HLD, HTN, left BKA, and blindness. He has no reported fever, chills, nausea, vomiting, shortness of breath, or chest pain. Chief Complaint: Wound Check Time Seen by MD: 19:30 Primary Care Provider: UNKNOWN Reviewed Notes: Nurses Notes, Medications, Allergies Allergies: Coded Allergies: NO KNOWN ALLERGIES (Unverified , 09/28/23) Home Meds Reported Medications Nifedipine (Nifedipine Er) 30 Mg Tab, 1 TAB PO DAILY for 90 Days, #90 09/26/24 Losartan Potassium (Losartan Potassium) 50 Mg Tab, 1 TAB PO EVERY 2 DAYS for 90 Days, #45 09/26/24 Dorzolamide-Timolol (Dorzolamide Hcl/Timolol M) 1 Ml Lj, 1 ML OP UD for 90 Days, #10 04/05/24 Latanoprost (Xalatan) 0.005 % Lj, 0.005 % OP UD for 25 Days, #2.5 04/05/24 Brimonidine Tartrate-Timolol M (Brimonidine Tartrate/Paul 0.2-0.5 %) 1 Lj Lj, 1 LJ OP UD for 18 Days, #5 04/05/24 Atorvastatin Calcium (Lipitor) 20 Mg Tab, 1 TAB PO DAILY, #90 TAB 1 Refill 09/29/23 Acetaminophen (Acetaminophen) 325 Mg Tab, 650 MG PO TIDP PRN for PAIN SCALE 1 THRU 6 for 30 Days, MG 0 Refills 09/29/23 Calcium Acetate (Phosphate Bin (Calcium Acetate) 667 Mg Cap, 667 MG PO TIDWM for 30 Days, MG 09/29/23 Aspirin (Aspirin Low Dose) 81 Mg Tab, 1 TAB PO DAILY for 60 Days, #60 09/29/23 Information Source: Patient, Relative Mode of Arrival: Wheelchair Severity: Moderate Timing: Hours Duration: Since onset Prehospital treatment: None Past Medical History PAST MEDICAL HISTORY: Anemia, CHF, DM (type II ), ESRD (on HD M/W/F), High Lipids, HTN Past Medical History (Other): bilateral blindness Surgical History: BKA (left), Hernia Repair Family History Family History: Reviewed,noncontributory to illness Social History Smoker: Non-Smoker Alcohol: Denies ETOH Use Drugs: Denies Drug Use Lives In: Home, Assisted Care All Other Systems: Reviewed and Negative (Comprehensive systems review obtained and negative except for what is stated in the HPI.) Physical Exam General Appearance: No Apparent Distress, Normal HEENT: Normal ENT Inspection, Pharynx Normal, TMs Normal Neck: Full Range of Motion, Non-Tender, Normal, Normal Inspection Respiratory: Chest Non-Tender, Lungs Clear, No Accessory Muscle Use, No Respiratory Distress, Normal Breath Sounds Cardiovascular: No Edema, No JVD, No Murmur, No Gallop, Normal Peripheral Pulses, Regular Rate/Rhythm Breast Exam: Deferred Gastrointestinal: No Organomegaly, Non Tender, No Pulsatile Mass, Normal Bowel Sounds, Soft Genitalia: Deferred Pelvic: Deferred Rectal: Deferred Extremities: No calf tenderness, Normal capillary refill, Normal range of motion, No pedal edema, Swelling (right foot ), Tender (rigth foot ), Other (left below knee amputation ) Musculoskeletal : Apperance: Normal Neurologic: Alert, condemnation engineer II-XII nml as Tested, No Motor Deficits, Normal Affect, Normal Mood, No Sensory Deficits Cerebellar Function: Normal Reflexes: Normal Skin: Dry, Normal Color, Warm, Other (right foot erythematous ) Lymphatic: No Adenopathy Was a procedure done? Was a procedure done?: No Differential Dx Considerations may include: nonhealing diabetic foot wound, cellulitis, dermatitis, necrosis of foot tissue, sepsis, among others X-Ray, Labs, Meds, VS Vital Signs Date Time Temp Pulse Resp B/P (MAP) Pulse Ox O2 Delivery O2 Flow Rate FiO2 09/25/24 23:00 98.4 94 14 201/84 (123) 95 98.4 09/25/24 20:54 98.9 78 18 147/76 (99) 95 98.9 09/25/24 20:54 96 Room Air* 0 21 09/25/24 19:20 98.9 78 18 167/76 (106) 96 98.9 Lab Test 09/25/24 19:38 Range/Units White Blood Count 14.7 H 4.4-10.8 10^3/uL Red Blood Count 3.37 L 4.5-5.90 10^6/uL Hemoglobin 10.8 L 13.5-17.5 g/dL Hematocrit 32.1 L 41.0-53.0 % Mean Corpuscular Volume 95.3 80.0-100.0 fL Mean Corpuscular Hemoglobin 32.0 28.0-32.0 pg Mean Corpuscular Hemoglobin Concent 33.5 32.0-36.0 g/dL Red Cell Distribution Width 16.2 H 11.8-14.3 % Platelet Count 266 140-450 10^3/uL Mean Platelet Volume 8.0 6.9-10.8 fL Neutrophils (%) (Auto) 85.7 H 37.0-80.0 % Lymphocytes (%) (Auto) 5.7 L 10.0-50.0 % Monocytes (%) (Auto) 5.9 0.0-12.0 % Eosinophils (%) (Auto) 2.1 0.0-7.0 % Basophils (%) (Auto) 0.6 0.0-2.0 % Neutrophils # (Auto) 12.6 H 1.6-8.6 10 ^3/uL Lymphocytes # (Auto) 0.8 0.4-5.4 10 ^3/uL Monocytes # (Auto) 0.9 0-1.3 10 ^3/uL Eosinophils # (Auto) 0.3 0-0.8 10 ^3/uL Basophils # (Auto) 0.1 0-0.2 10 ^3/uL Nucleated Red Blood Cells 0.0 % Prothrombin Time 12.8 H 9.3-11.8 sec Prothrombin Time INR 1.23 H 0.9-1.15 Sodium Level 133 L 136-145 mmol/L Potassium Level 4.9 3.5-5.1 mmol/L Chloride Level 96 L 98-107 mmol/L Carbon Dioxide Level 25 20-31 mmol/L Anion Gap 12 5-15 Blood Urea Nitrogen 41 H 9-23 mg/dL Creatinine 5.34 H 0.700-1.30 mg/dL Glomerular Filtration Rate Calc 11 >90 mL/min BUN/Creatinine Ratio 7.7 L 10.0-20.0 Serum Glucose 114 H 74-106 mg/dL Lactic Acid Level 1.0 0.4-2.0 mmol/L Calcium Level 9.1 8.7-10.4 mg/dL Microbiology Date/Time Source Procedure Growth Status 09/25/24 19:38 Blood Blood Culture - Preliminary NO GROWTH AFTER 24 HOURS OF INCUBATION. Resulted 09/25/24 19:33 Blood Blood Culture - Preliminary NO GROWTH AFTER 24 HOURS OF INCUBATION. Resulted [facility] [id number] [address] Ph: [phone] DIAGNOSTIC IMAGING Diagnostic Imaging Report : [id number] Signed PATIENT: NAV HAGER ACCT: [id number] UNIT: [id number] : 1950 LOC: ER ROOM / BED: / AGE / SEX: 73 / M ADM STATUS: REG ER SERVICE 27 ORDERING PHYSICIAN: REINA CARTER MD PROCEDURE(s): RFOOT - R FOOT 3 VIEW XRAY REASON: right foot swelling and pain ORDER NUMBER(s): [id number], ACCESSION NUMBER(s): [id number] CLINICAL INDICATION: right foot swelling and pain TECHNIQUE: XY R FOOT 3 VIEW XRAY Comparison: None FINDINGS: Evidence of soft tissue swelling around the 1st toe. No evidence of fracture or dislocation. Mild degenerative changes noted in 1st MTP joint and the IP joints. Considerable arterial calcifications noted in the lower leg/foot. IMPRESSION: No evidence of fracture or dislocation. ATED BY: PASQUALE FLORES MD DICTATED DATE/TIME: 09/25/242016 SIGNED BY: PASQUALE FLORES MD SIGNED DATE/TIME: 09/25/242016 CC: Time of 1ST Reevaluation: 20:00 Reevaluation 1ST: Unchanged Patient Education/Counseling: Diagnosis, Treatment, Other (need for admission ) Family Education/Counseling: Diagnosis, Treatment, Other (need for admission ) Additional Information Previous visits reviewed: July 24, 2024 encounter for acute exacerbation of CHF The following tests were ordered, and results were reviewed by me: Blood culture, lactic acid w/reflex, CBC, BMP, right foot X-ray Additional Information was gathered from interviewing the following independent historians: Relative I reviewed and agreed with the following test results read by other providers: right foot X-ray I discussed treatment and results with medical personnel and: patient, relative Sepsis Sepsis Reasesment Focused Exam Orders: Laboratory Tests 09/25/24 19:38: Lactic Acid Level 1.0 Departure 1 Departure Time of Disposition: 05:37 (Patient was purulent cellulitis of his right lower extremity. We will admit patient for further workup and expert consultation) Impression: Primary Impression: Cellulitis of right lower extremity Additional Impression: Diabetes Qualified Codes: E11.52 - Type 2 diabetes mellitus with diabetic peripheral angiopathy with gangrene; Z79.4 - correction (current) use of insulin Disposition: ADMITTED INPATIENT Admit to: Med Surg Condition: Guarded Critical Care Note Critical Care Time?: No Stability Stability form required: No Heart Score Heart Score: Heart Score Response (Comments) Value History N/A 0 EKG N/A 0 Age N/A 0 Risk Factors N/A 0 Troponin N/A 0 Total 0 I personally scribed for REINA CARTER MD ([email or web address]) on 09/25/24 at 19:44. Electronically submitted by Albin Jessica ([email or web address]). I personally scribed for REINA CARTER MD ([email or web address]) on 09/25/24 at 20:58. Electro nically submitted by Albin Jessica [email or web address]). REINA CARTER MD Sep 25, 2024 19:44
[2024-09-25 20:04] LABS: Basophils # (auto) 0.1 10 ^3/uL (0-0.2); Basophils % (auto) 0.6 % (0.0-2.0); Eosinophils # (auto) 0.3 10 ^3/uL (0-0.8); Eosinophils % (auto) 2.1 % (0.0-7.0); Hematocrit 32.1 % (41.0-53.0); Hemoglobin 10.8 g/dL (13.5-17.5); Lymphocytes # (auto) 0.8 10 ^3/uL (0.4-5.4); Lymphocytes % (auto) 5.7 % (10.0-50.0); Mean Corpuscular Hgb Conc. 33.5 g/dL (32.0-36.0); Mean Corpuscular Volume 95.3 fL (80.0-100.0); Monocytes # (auto) 0.9 10 ^3/uL (0-1.3); Monocytes % (auto) 5.9 % (0.0-12.0); Neutrophils # (auto) 12.6 10 ^3/uL (1.6-8.6); Neutrophils % (auto) 85.7 % (37.0-80.0); Platelet Count (auto) 266 10^3/uL (140-450); Red Blood Cells 3.37 10^6/uL (4.5-5.90); Red Cell Distribution Width 16.2 % (11.8-14.3); White Blood Cell 14.7 10^3/uL (4.4-10.8)
[2024-09-25 20:12] LABS: Potassium 4.9 mmol/L (3.5-5.1)
[2024-09-25 20:13] LABS: Anion Gap 12 (5-15); Carbon Dioxide 25 mmol/L (20-31)
[2024-09-25 20:14] LABS: Calcium 9.1 mg/dL (8.7-10.4); Chloride 96 mmol/L (98-107); Sodium 133 mmol/L (136-145)
[2024-09-25 20:18] LABS: BUN/Creatinine Ratio 7.7 (10.0-20.0)
[2024-09-25 20:19] LABS: Blood Urea Nitrogen 41 mg/dL (9-23); Glucose 114 mg/dL (74-106)
--- NOTE | 2024-09-25 20:20 | DVH ---
CLINICAL INDICATION: right foot swelling and pain TECHNIQUE: XY R FOOT 3 VIEW XRAY Comparison: None FINDINGS: Evidence of soft tissue swelling around the 1st toe. No evidence of fracture or dislocation. Mild deg enerative changes noted in 1st MTP joint and the IP joints. Considerable arterial calcifications note d in the lower leg/foot. IMPRESSION: No evidence of fracture or dislocation.
[2024-09-25 20:54] VITALS: O2SAT 96
[2024-09-25] MEDS: VANCOMYCIN 1GM/200ML PM 200 ML IV ONE (20:56)
[~2024-09-25 23:17] MED LIST changes: +NIFE1TAB31 PO
[2024-09-25] MEDS ORDERED: MORPHINE SULFATE INJ 2 MG/ml SYRG IV PRN (23:30)
[2024-09-25] MEDS ORDERED: VANCOMYCIN PER PHARMACY 0 MG IV SCH (23:30)
[2024-09-25] MEDS ORDERED: NITROGLYCERIN 0.4 MG SL TAB SL PRN (23:30)
[2024-09-25] MEDS ORDERED: DEXTROSE (50%) 50ML SYRG IV PRN (23:30)
[2024-09-25 23:48] LABS: INR 1.23 (0.9-1.15); Prothrombin Time 12.8 sec (9.3-11.8)
[2024-09-26] MEDS: cloNIDine HCL 0.1 MG TAB PO ONE (00:30)
[2024-09-26] MEDS ORDERED: hydrALAZINE HCL 25 MG TAB PO PRN (00:30)
--- NOTE | 2024-09-26 00:46 | DVHHP2 ---
Admitting Diagnosis: soft tissue infection, right foot History of Present Illness HPI 73 y.o. male with ESRD, CAD, PAD, HTN, DM, left BKA, blindness arrived to the ER c/o right foot swelling and pain. When asked when it started, patient replied: "3 days ago". However, the foot and the lower leg are red with tight pitting 2- 3+ edema, many scabs and a drainage on the medial side of the big toe. Patient is a poor historian and doesn't know his PMH Home Meds Reported Medications Dorzolamide-Timolol (Dorzolamide Hcl/Timolol M) 1 Ml Lj, 1 ML OP UD for 90 Days , #10 04/05/24 Latanoprost (Xalatan) 0.005 % Lj, 0.005 % OP UD for 25 Days, #2.5 04/05/24 Brimonidine Tartrate-Timolol M (Brimonidine Tartrate/Paul 0.2-0.5 %) 1 Lj Lj, 1 LJ OP UD for 18 Days, #5 04/05/24 Amlodipine Besylate (Amlodipine Besylate) 2.5 Mg Tab, 1 TAB PO DAILY for 90 Days, #90 04/05/24 Atorvastatin Calcium (Lipitor) 20 Mg Tab, 1 TAB PO DAILY, #90 TAB 1 Refill 09/29/23 Acetaminophen (Acetaminophen) 325 Mg Tab, 650 MG PO TIDP PRN for PAIN SCALE 1 THRU 6 for 30 Days, MG 0 Refills 09/29/23 Calcium Acetate (Phosphate Bin (Calcium Acetate) 667 Mg Cap, 667 MG PO TIDWM for 30 Days, MG 09/29/23 Losartan Potassium (Losartan Potassium) 50 Mg Tab, 1 TAB PO BID for 90 Days, #180 09/29/23 Aspirin (Aspirin Low Dose) 81 Mg Tab, 1 TAB PO DAILY 09/29/23 Past Medical History Cardiac: CAD, CHF, HTN, Hyperlipidemia Endocrine: NIDDM Past Surgical History: Other (left BKA) Patient Family History: Patient reports no known family medical history. Review of Systems Musculoskeletal: Leg pain, Foot pain H&P Exam Vital Signs Vital Signs Date Time Temp Pulse Resp B/P (MAP) Pulse Ox O2 Delivery O2 Flow Rate FiO2 09/25/24 23:00 98.4 94 14 201/84 (123) 95 98.4 09/25/24 20:54 Room Air* 0 21 General Appeara: Mild distress Head Exam: Normal inspection Neck Exam: Normal inspection Eye Exam: bilateral eye PERRL, bilateral eye Other (blind) Pulmonary/Respiratory: Normal inspection Cardiovascular/Chest: Normal Rhythm Peripheral Pulses: 1+ dorsalis pedis (R) Abdominal Exam: Soft Legs: right leg swelling Ankle Exam: right ankle Swelling Foot: right foot swelling Neuro/Mental St: Alert, Oriented Labs/Xrays Labs Test 09/25/24 19:38 Range/Units White Blood Count 14.7 H 4.4-10.8 10^3/uL Red Blood Count 3.37 L 4.5-5.90 10^6/uL Hemoglobin 10.8 L 13.5-17.5 g/dL Hematocrit 32.1 L 41.0-53.0 % Mean Corpuscular Volume 95.3 80.0-100.0 fL Mean Corpuscular Hemoglobin 32.0 28.0-32.0 pg Mean Corpuscular Hemoglobin Concent 33.5 32.0-36.0 g/dL Red Cell Distribution Width 16.2 H 11.8-14.3 % Platelet Count 266 140-450 10^3/uL Mean Platelet Volume 8.0 6.9-10.8 fL Neutrophils (%) (Auto) 85.7 H 37.0-80.0 % Lymphocytes (%) (Auto) 5.7 L 10.0-50.0 % Monocytes (%) (Auto) 5.9 0.0-12.0 % Eosinophils (%) (Auto) 2.1 0.0-7.0 % Basophils (%) (Auto) 0.6 0.0-2.0 % Neutrophils # (Auto) 12.6 H 1.6-8.6 10 ^3/uL Lymphocytes # (Auto) 0.8 0.4-5.4 10 ^3/uL Monocytes # (Auto) 0.9 0-1.3 10 ^3/uL Eosinophils # (Auto) 0.3 0-0.8 10 ^3/uL Basophils # (Auto) 0.1 0-0.2 10 ^3/uL Nucleated Red Blood Cells 0.0 % Prothrombin Time 12.8 H 9.3-11.8 sec Prothrombin Time INR 1.23 H 0.9-1.15 Sodium Level 133 L 136-145 mmol/L Potassium Level 4.9 3.5-5.1 mmol/L Chloride Level 96 L 98-107 mmol/L Carbon Dioxide Level 25 20-31 mmol/L Anion Gap 12 5-15 Blood Urea Nitrogen 41 H 9-23 mg/dL Creatinine 5.34 H 0.700-1.30 mg/dL Glomerular Filtration Rate Calc 11 >90 mL/min BUN/Creatinine Ratio 7.7 L 10.0-20.0 Serum Glucose 114 H 74-106 mg/dL Lactic Acid Level 1.0 0.4-2.0 mmol/L Calcium Level 9.1 8.7-10.4 mg/dL Assessment/Plan Problem List: (1) Soft tissue infection of foot (2) DM (diabetes mellitus) (3) Blindness of both eyes (4) ESRD on dialysis (5) HTN (hypertension) Plan Abx, BP control, wound care, Insulin, Podiatry and nephrology consults Plan discussed with: Patient ANN MCGUIRE MD Sep 26, 2024 00:46
[2024-09-26] MEDS: cloNIDine HCL 0.1 MG TAB ONE (02:24)
[2024-09-26] MEDS: hydrALAZINE HCL 25 MG TAB PO PRN (03:36)
[2024-09-26 05:59] LABS: Basophils # (auto) 0.1 10 ^3/uL (0-0.2); Basophils % (auto) 0.4 % (0.0-2.0); Eosinophils # (auto) 0.2 10 ^3/uL (0-0.8); Eosinophils % (auto) 1.3 % (0.0-7.0); Hematocrit 29.1 % (41.0-53.0); Hemoglobin 9.7 g/dL (13.5-17.5); Lymphocytes # (auto) 0.8 10 ^3/uL (0.4-5.4); Lymphocytes % (auto) 6.1 % (10.0-50.0); Mean Corpuscular Hemoglobin 31.8 pg (28.0-32.0); Mean Corpuscular Hgb Conc. 33.3 g/dL (32.0-36.0); Mean Corpuscular Volume 95.5 fL (80.0-100.0); Monocytes # (auto) 1.1 10 ^3/uL (0-1.3); Monocytes % (auto) 7.6 % (0.0-12.0); Neutrophils # (auto) 11.7 10 ^3/uL (1.6-8.6); Neutrophils % (auto) 84.6 % (37.0-80.0); Platelet Count (auto) 227 10^3/uL (140-450); Red Blood Cells 3.05 10^6/uL (4.5-5.90); Red Cell Distribution Width 16.1 % (11.8-14.3); White Blood Cell 13.8 10^3/uL (4.4-10.8)
[2024-09-26] MEDS ORDERED: PIPERACILLIN-TAZOB 2.25GM 50 ML IV SCH ×2 (06:00→16:15)
[2024-09-26 06:03] LABS: Alanine Aminotransferase 15 U/L (7-40); Albumin 3.8 g/dL (3.2-4.8); Anion Gap 13 (5-15); Aspartate Aminotransferase 16 U/L (13-40); BUN/Creatinine Ratio 8.2 (10.0-20.0); Calcium 8.9 mg/dL (8.7-10.4); Carbon Dioxide 24 mmol/L (20-31)
[2024-09-26 06:04] LABS: Bilirubin, Total 0.6 mg/dL (0.2-1.0)
[2024-09-26 06:07] LABS: Alkaline Phosphatase 313 U/L (46-116); Blood Urea Nitrogen 47 mg/dL (9-23); Chloride 97 mmol/L (98-107); Glucose 141 mg/dL (74-106); Sodium 134 mmol/L (136-145)
[2024-09-26] MEDS: FUROSEMIDE 40 MG/4 ML VIAL IV SCH (06:25)
[2024-09-26] MEDS: ACCU-CHEK COMFORT CURVE STRIP VI SCH (06:28)
[2024-09-26] MEDS: InsuLIN REG 1unit/0.01ml Soln (100units/ml) SC SCH (06:28)
[2024-09-26] MEDS: PIPERACILLIN-TAZOB 2.25GM 50 ML IV SCH (08:27)
[2024-09-26] MEDS ORDERED: FUROSEMIDE 40 MG/4 ML VIAL IV SCH (10:00)
--- NOTE | 2024-09-26 10:19 | DVHINCON2 ---
Date of service: Sep 26, [address] Hernandez Reason for Consultation End-stage renal disease to manage hemodialysis History of Present Illness Patient is 73-year-old male with past medical history significant fo Anemia, CHF, DM (type II ), ESRD (on HD M/W/F), High Lipids, HTN, peripheral arterial disease & bilateral blindness is admitted for right foot nonhealing wound and infection. On admission Nephrology is consulted to manage his hemodialysis Past Medical History Anemia, CHF, DM (type II ), ESRD (on HD M/W/F), High Lipids, HTN, Congestive heart failure peripheral arterial disease & bilateral blindness Past Surgical History Surgical History: BKA (left), Hernia Repair Allergies: Coded Allergies: NO KNOWN ALLERGIES (Unverified , 09/28/23) Home Meds Reported Medications Dorzolamide-Timolol (Dorzolamide Hcl/Timolol M) 1 Ml Lj, 1 ML OP UD for 90 Days, #10 04/05/24 Latanoprost (Xalatan) 0.005 % Lj, 0.005 % OP UD for 25 Days, #2.5 04/05/24 Brimonidine Tartrate-Timolol M (Brimonidine Tartrate/Paul 0.2-0.5 %) 1 Lj Lj, 1 LJ OP UD for 18 Days, #5 04/05/24 Amlodipine Besylate (Amlodipine Besylate) 2.5 Mg Tab, 1 TAB PO DAILY for 90 Days, #90 04/05/24 Atorvastatin Calcium (Lipitor) 20 Mg Tab, 1 TAB PO DAILY, #90 TAB 1 Refill 09/29/23 Acetaminophen (Acetaminophen) 325 Mg Tab, 650 MG PO TIDP PRN for PAIN SCALE 1 THRU 6 for 30 Days, MG 0 Refills 09/29/23 Calcium Acetate (Phosphate Bin (Calcium Acetate) 667 Mg Cap, 667 MG PO TIDWM for 30 Days, MG 09/29/23 Losartan Potassium (Losartan Potassium) 50 Mg Tab, 1 TAB PO BID for 90 Days, #180 09/29/23 Aspirin (Aspirin Low Dose) 81 Mg Tab, 1 TAB PO DAILY 09/29/23 Current Medications Current Medications Medications (Trade) Dose Ordered Sig/Vane Route PRN Reason Start Time Stop Time Status Last Admin Nitroglycerin (Ntrostat Sublingual) 0.4 mg Q5MINP PRN SL FOR CHEST PAIN 09/25/24 23:30 Morphine Sulfate 2 mg Q30M PRN IV FOR CHEST PAIN 09/25/24 23:30 Furosemide (Lasix Injection) 40 mg BID IV 09/26/24 10:00 Cancel Vancomycin HCl 0 ml @ 0 mls/hr UD IV 09/25/24 23:30 Piperacillin Sod/ Tazobactam Sod 50 ml @ 50 mls/hr Q8HR IV 09/26/24 06:00 09/26/24 06:24 DC Diagnostic Test (Pha) (Accu-Chek Comfort Curve T) 1 strip ACHS 09/26/24 07:00 09/26/24 06:28 Insulin Human Regular (InsuLIN R) ACHS SC 09/26/24 07:00 Dextrose 50 ml UD PRN IV Blood Sugar LESS THAN 60 09/25/24 23:30 Hydralazine HCl (Apresoline Tablet) 25 mg Q6HP PRN PO SBP>150 09/26/24 00:30 09/26/24 03:09 DC Hydralazine HCl (Apresoline Tablet) 25 mg Q6HP PRN PO SBP>150 09/26/24 03:15 09/26/24 03:36 Furosemide (Lasix Injection) 40 mg BIDD IV 09/26/24 06:00 09/26/24 06:25 Hydralazine HCl (Apresoline Injection) 25 mg Q6HR PRN IV SBP>160 09/26/24 06:00 Piperacillin Sod/ Tazobactam Sod 50 ml @ 50 mls/hr Q8H IV 09/26/24 08:00 09/26/24 08:27 Family History: Patient reports no known family medical history. Review of Systems All 12 item review of systems reviewed with the patient nonsignificant except what is mentioned in the history of present illness H&P Exam Vital Signs/I&O Vital Sign Date Time Temp Pulse Resp B/P (MAP) Pulse Ox O2 Delivery O2 Flow Rate FiO2 09/26/24 10:00 71 14 179/81 (113) 98 09/26/24 08:00 98.4 98.4 09/26/24 08:00 Room Air* 0 21 Intake and Output 09/25/24 09/26/24 19:00 07:00 Intake Total 200 ml Balance 200 ml Intake IV Total 200 ml Physical Exam Patient examined hemodialysis, blood pressure stable Patient is awake and alert Lungs clear to auscultation bilaterally Cardiac exam regular rate and rhythm GI soft nontender was normal Extremity left below-knee amputation, right foot with ischemic changes and open wounds Neuro nonfocal Labs/Diagnostic Data Labs/Diagnostic Data Laboratory Tests Test 09/26/24 06:20 09/26/24 05:03 09/25/24 19:38 Range/Units POC Glucose 139 H 70-106 mg/dl White Blood Count 13.8 H 14.7 H 4.4-10.8 10^3/uL Red Blood Count 3.05 L 3.37 L 4.5-5.90 10^6/uL Hemoglobin 9.7 L 10.8 L 13.5-17.5 g/dL Hematocrit 29.1 L 32.1 L 41.0-53.0 % Mean Corpuscular Volume 95.5 95.3 80.0-100.0 fL Mean Corpuscular Hemoglobin 31.8 32.0 28.0-32.0 pg Mean Corpuscular Hemoglobin Concent 33.3 33.5 32.0-36.0 g/dL Red Cell Distribution Width 16.1 H 16.2 H 11.8-14.3 % Platelet Count 227 266 140-450 10^3/uL Mean Platelet Volume 8.0 8.0 6.9-10.8 fL Neutrophils (%) (Auto) 84.6 H 85.7 H 37.0-80.0 % Lymphocytes (%) (Auto) 6.1 L 5.7 L 10.0-50.0 % Monocytes (%) (Auto) 7.6 5.9 0.0-12.0 % Eosinophils (%) (Auto) 1.3 2.1 0.0-7.0 % Basophils (%) (Auto) 0.4 0.6 0.0-2.0 % Neutrophils # (Auto) 11.7 H 12.6 H 1.6-8.6 10 ^3/uL Lymphocytes # (Auto) 0.8 0.8 0.4-5.4 10 ^3/uL Monocytes # (Auto) 1.1 0.9 0-1.3 10 ^3/uL Eosinophils # (Auto) 0.2 0.3 0-0.8 10 ^3/uL Basophils # (Auto) 0.1 0.1 0-0.2 10 ^3/uL Nucleated Red Blood Cells 0.0 0.0 % Sodium Level 134 L 133 L 136-145 mmol/L Potassium Level 5.0 4.9 3.5-5.1 mmol/L Chloride Level 97 L 96 L 98-107 mmol/L Carbon Dioxide Level 24 25 20-31 mmol/L Anion Gap 13 12 5-15 Blood Urea Nitrogen 47 H 41 H 9-23 mg/dL Creatinine 5.71 H 5.34 H 0.700-1.30 mg/dL Glomerular Filtration Rate Calc 10 11 >90 mL/min BUN/Creatinine Ratio 8.2 L 7.7 L 10.0-20.0 Serum Glucose 141 H 114 H 74-106 mg/dL Hemoglobin A1c 6.2 H <5.7 % A1C Calcium Level 8.9 9.1 8.7-10.4 mg/dL Phosphorus Level 7.0 H 2.4-5.1 mg/dL Magnesium Level 1.9 1.6-2.6 mg/dL Total Bilirubin 0.6 0.2-1.0 mg/dL Aspartate Amino Transferase (AST) 16 13-40 U/L Alanine Aminotransferase (ALT) 15 7-40 U/L Alkaline Phosphatase 313 H 46-116 U/L Total Protein 7.0 5.7-8.2 g/dL Albumin 3.8 3.2-4.8 g/dL Vitamin D 25-Hydroxy 92.9 30.0-100 ng/mL Hepatitis B Surface Antigen Negative Negative Prothrombin Time 12.8 H 9.3-11.8 sec Prothrombin Time INR 1.23 H 0.9-1.15 Lactic Acid Level 1.0 0.4-2.0 mmol/L Assessment End-stage renal disease on hemodialysis Chronic systolic Congestive heart failure Diabetes mellitus type 2 Hypertensive urgency Right foot nonhealing wounds Peripheral arterial disease Left below-knee amputation Anemia of chronic kidney disease Recommendations Continue with UF to 3-4 L as tolerated Epogen 60447 subQ 3 times weekly Resume home medication Blood pressure control Insulin sliding scale Fluid restrictions Renal diet IV antibiotics Podiatry consult We will continue to follow Patient seen and examined by myself ER bed 17. I discussed my plan of care with the patient and primary nurse at the bedside I would like to thank Dr. Hernandez for all, will follow up Plan discussed with: Patient PREM WAGONER MD Sep 26, 2024 10:19
[2024-09-26 10:38] LABS: Magnesium 1.9 mg/dL (1.6-2.6)
[2024-09-26] MEDS: hydrALAZINE HCL 20 MG/ML VL IV PRN (12:12)
[2024-09-26 14:18] VITALS: BP 163/71; PULSE 52; PULSE 64; RESP 16; TEMP 97.2; O2SAT 96; O2SAT 99
--- NOTE | 2024-09-26 15:25 | DVHINCON2 ---
Date Seen: Sep 26, 2024 Reason for Consultation Right foot wound History of Present Illness 73 y.o. male with ESRD, CAD, PAD, HTN, DM, left BKA, blindness arrived to the ER c/o right foot swelling and pain. When asked when it started, patient replied: "3 days ago". However, the foot and the lower leg are red with tight pitting 2- 3+ edema, many scabs and a drainage on the medial side of the big toe. Patient is a poor historian and doesn't know his PMH. Past Medical History See H&P Past Surgical History See H&P Family History: Patient reports no known family medical history. Allergies: Coded Allergies: NO KNOWN ALLERGIES (Unverified , 09/28/23) Home Meds Reported Medications Dorzolamide-Timolol (Dorzolamide Hcl/Timolol M) 1 Ml Lj, 1 ML OP UD for 90 Days, #10 04/05/24 Latanoprost (Xalatan) 0.005 % Lj, 0.005 % OP UD for 25 Days, #2.5 04/05/24 Brimonidine Tartrate-Timolol M (Brimonidine Tartrate/Paul 0.2-0.5 %) 1 Lj Lj, 1 LJ OP UD for 18 Days, #5 04/05/24 Amlodipine Besylate (Amlodipine Besylate) 2.5 Mg Tab, 1 TAB PO DAILY for 90 Days, #90 04/05/24 Atorvastatin Calcium (Lipitor) 20 Mg Tab, 1 TAB PO DAILY, #90 TAB 1 Refill 09/29/23 Acetaminophen (Acetaminophen) 325 Mg Tab, 650 MG PO TIDP PRN for PAIN SCALE 1 THRU 6 for 30 Days, MG 0 Refills 09/29/23 Calcium Acetate (Phosphate Bin (Calcium Acetate) 667 Mg Cap, 667 MG PO TIDWM for 30 Days, MG 09/29/23 Losartan Potassium (Losartan Potassium) 50 Mg Tab, 1 TAB PO BID for 90 Days, #180 09/29/23 Aspirin (Aspirin Low Dose) 81 Mg Tab, 1 TAB PO DAILY 09/29/23 Current Medications Current Medications Medications (Trade) Dose Ordered Sig/Vane Route PRN Reason Start Time Stop Time Status Last Admin Nitroglycerin (Ntrostat Sublingual) 0.4 mg Q5MINP PRN SL FOR CHEST PAIN 09/25/24 23:30 Morphine Sulfate 2 mg Q30M PRN IV FOR CHEST PAIN 09/25/24 23:30 Furosemide (Lasix Injection) 40 mg BID IV 09/26/24 10:00 Cancel Vancomycin HCl 0 ml @ 0 mls/hr UD IV 09/25/24 23:30 Piperacillin Sod/ Tazobactam Sod 50 ml @ 50 mls/hr Q8HR IV 09/26/24 06:00 09/26/24 06:24 DC Diagnostic Test (Pha) (Accu-Chek Comfort Curve T) 1 strip ACHS 09/26/24 07:00 09/26/24 11:45 Insulin Human Regular (InsuLIN R) ACHS SC 09/26/24 07:00 Dextrose 50 ml UD PRN IV Blood Sugar LESS THAN 60 09/25/24 23:30 Hydralazine HCl (Apresoline Tablet) 25 mg Q6HP PRN PO SBP>150 09/26/24 00:30 09/26/24 03:09 DC Hydralazine HCl (Apresoline Tablet) 25 mg Q6HP PRN PO SBP>150 09/26/24 03:15 09/26/24 03:36 Furosemide (Lasix Injection) 40 mg BIDD IV 09/26/24 06:00 09/26/24 06:25 Hydralazine HCl (Apresoline Injection) 25 mg Q6HR PRN IV SBP>160 09/26/24 06:00 09/26/24 12:12 Piperacillin Sod/ Tazobactam Sod 50 ml @ 50 mls/hr Q8H IV 09/26/24 08:00 09/26/24 08:27 Sevelamer HCl (Renagel) 1,600 mg TIDWM PO 09/26/24 18:00 Vital Signs Vital Signs Date Time Temp Pulse Resp B/P (MAP) Pulse Ox O2 Delivery O2 Flow Rate FiO2 09/26/24 14:18 97.2 52 16 163/71 (101) 99 97.2 09/26/24 08:00 Room Air* 0 21 Physical Exam Dermatological: Skin is dry with mild erythema and some maceration around the wound site No gross deformities noted Mild non-pitting edema present bilaterally right foot medial hallux wound with purulent drainage and fluctuance Vascular: Dorsalis pedis and posterior tibial pulses are 1+ bilaterally Capillary refill is under 2 seconds Skin temperature is warm bilaterally Neurologic: Protective sensation is absent on the plantar forefoot bilaterally Monofilament testing reveals decreased sensation in multiple plantar sites Musculoskeletal: Range of motion at the ankle and MTP joints is within normal limits. Strength is 5/5 in all tested muscle groups. Gait is antalgic due to offloading of the affected limb. Labs/Diagnostic Data Labs Test 09/26/24 11:43 09/26/24 05:03 09/25/24 19:38 Range/Units POC Glucose 109 H 70-106 mg/dl White Blood Count 13.8 H 4.4-10.8 10^3/uL Red Blood Count 3.05 L 4.5-5.90 10^6/uL Hemoglobin 9.7 L 13.5-17.5 g/dL Hematocrit 29.1 L 41.0-53.0 % Mean Corpuscular Volume 95.5 80.0-100.0 fL Mean Corpuscular Hemoglobin 31.8 28.0-32.0 pg Mean Corpuscular Hemoglobin Concent 33.3 32.0-36.0 g/dL Red Cell Distribution Width 16.1 H 11.8-14.3 % Platelet Count 227 140-450 10^3/uL Mean Platelet Volume 8.0 6.9-10.8 fL Neutrophils (%) (Auto) 84.6 H 37.0-80.0 % Lymphocytes (%) (Auto) 6.1 L 10.0-50.0 % Monocytes (%) (Auto) 7.6 0.0-12.0 % Eosinophils (%) (Auto) 1.3 0.0-7.0 % Basophils (%) (Auto) 0.4 0.0-2.0 % Neutrophils # (Auto) 11.7 H 1.6-8.6 10 ^3/uL Lymphocytes # (Auto) 0.8 0.4-5.4 10 ^3/uL Monocytes # (Auto) 1.1 0-1.3 10 ^3/uL Eosinophils # (Auto) 0.2 0-0.8 10 ^3/uL Basophils # (Auto) 0.1 0-0.2 10 ^3/uL Nucleated Red Blood Cells 0.0 % Sodium Level 134 L 136-145 mmol/L Potassium Level 5.0 3.5-5.1 mmol/L Chloride Level 97 L 98-107 mmol/L Carbon Dioxide Level 24 20-31 mmol/L Anion Gap 13 5-15 Blood Urea Nitrogen 47 H 9-23 mg/dL Creatinine 5.71 H 0.700-1.30 mg/dL Glomerular Filtration Rate Calc 10 >90 mL/min BUN/Creatinine Ratio 8.2 L 10.0-20.0 Serum Glucose 141 H 74-106 mg/dL Hemoglobin A1c 6.2 H <5.7 % A1C Calcium Level 8.9 8.7-10.4 mg/dL Phosphorus Level 7.0 H 2.4-5.1 mg/dL Magnesium Level 1.9 1.6-2.6 mg/dL Total Bilirubin 0.6 0.2-1.0 mg/dL Aspartate Amino Transferase (AST) 16 13-40 U/L Alanine Aminotransferase (ALT) 15 7-40 U/L Alkaline Phosphatase 313 H 46-116 U/L B-Type Natriuretic Peptide > 5000.00 0-100 pg/mL Total Protein 7.0 5.7-8.2 g/dL Albumin 3.8 3.2-4.8 g/dL Vitamin D 25-Hydroxy 92.9 30.0-100 ng/mL Parathyroid Hormone (Intact) 186.1 H 18.4-80.1 pg/mL Hepatitis B Surface Antigen Negative Negative Prothrombin Time 12.8 H 9.3-11.8 sec Prothrombin Time INR 1.23 H 0.9-1.15 Lactic Acid Level 1.0 0.4-2.0 mmol/L Problems(with codes): (1) Chronic kidney disease on chronic dialysis (2) Weakness (3) Urinary tract infection (4) Generalized abdominal pain (5) Intractable abdominal pain (6) Generalized weakness (7) End-stage renal disease on hemodialysis (8) Shortness of breath (9) Pneumonia, unspecified organism (10) Abdominal pain (11) Pleural effusion on right (12) Hypertensive urgency (13) Hyperkalemia (14) Respiratory alkalosis (15) End stage renal disease on dialysis (16) Elevated troponin I level (17) Elevated lactic acid level (18) Acute exacerbation of congestive heart failure (19) Blindness of both eyes (20) DM (diabetes mellitus) (21) ESRD on dialysis (22) Soft tissue infection of foot (23) HTN (hypertension) Plan/Recommendation ASSESSMENT: Patient is a 73 year old seen on the floor for a worsening ulcer PLAN: - The patients chart was reviewed, clinical findings were discussed with the patient, the etiologies of the conditions were discussed in detail, and a treat ment plan was agreed to at this time, with both oral and written instructions provided. - reviewed advanced imaging - discussed plan is to perform an incision and drainage tomorrow - patient will be NPO at midnight - take him to the OR tomorrow - we will get cultures in the OR - can weightbear as tolerated in postoperative shoe All questions were answered and concerns addressed to the patient's satisfaction. The patient was given the phone number to the clinic and was told how to make contact with the clinic should any concerns or questions arise. Patient understands that if any questions or concerns arise prior to the next appointment, we should be contacted immediately. FOLLOW-UP: Continue to follow while inpatient Plan discussed with: Patient Date of Service: Sep 26, 2024 Billing Provider: SHIRLENE JIN DPM Common Visit Codes: CONSULT ONLY Consultation Codes: [id number] CONSULT <80MIN SHIRLENE JIN DPM Sep 26, 2024 15:25
[2024-09-26 16:31] VITALS: BP 169/78; PULSE 64; RESP 16; TEMP 98; O2SAT 96
--- NOTE | 2024-09-26 16:40 | DVHSR ---
APPROVED REPORT EXAM: Two-dimensional and M-mode echocardiogram with Doppler and color Doppler. Blood Pressure: 176/74 mmHg INDICATION Pre-Op RISK FACTORS Height: 5'9", Weight: 150 DIMENSIONS LVDd5.7 (3.8-5.7cm)LA (2D)5.1 (1.9-4.0cm)Aortic Root3.7 (2.0-3.7cm) LVDs4.5 (2.5-4.0cm)LA (MM) (1.9-4.0cm)Aortic Cusp Exc1.8 (1.5-2.0cm) EF (%) 40.0 (55-70%)Rt. Atrium5.4 (1.9-4.0cm)Asc. Aorta4.1 cm IVSd1.5 (0.7-1.1cm)RV (D)4.9 (1.8-2.4cm) PWd1.2 (0.7-1.1cm) Mitral Valve MitralMitral Stenosis E wave1.31m/sMV Mean GR.mmHg A wave0.67m/sMV Peak GR.mmHg E/A ratio2.02D MVAcm2 DECEL [id number] 1/2 Timems Aortic Valve Aortic ValveAortic Stenosis V10.81m/Raysa Mean GR.3mmHg V21.06m/Raysa Peak GR.4mmHg LVOT Diameter2.4 (1.8-2.4cm)Doppler AVA3.46cm2 Pulmonic Valve V20.75m/s Tricuspid Valve TR Velocity3.62m/s [id number] Conclusion lvef 35 % by visual estimate moderate LVH normal rv function normal atria no severe valve abnormalities noted moderate tricuspid regurg mild to moderate mitral regurg small posterior pericardial effusion noted
[2024-09-26] MEDS: SEVELAMER 800 MG TAB PO SCH (17:45)
[2024-09-26 20:00] VITALS: RESP 18; O2SAT 98
[2024-09-26 21:00] VITALS: BP 169/71; PULSE 67; RESP 18; TEMP 98; O2SAT 98
[2024-09-26] MEDS: EPOETIN ALFA-EPBX 10,000 UNIT/1ML VIAL SC ONE (21:49)
[2024-09-27] VITALS (9 sets, daily range): BP systolic 125–180; BP diastolic 63–101; PULSE 64–90; RESP 16–20; TEMP 97.3–98.3; O2SAT 90–100
[2024-09-27] MEDS: LABETALOL HCL 20 MG/4 ML VL IV ONE (01:53)
--- NOTE | 2024-09-27 07:03 | DVH ---
CHEST RADIOGRAPH Indication: pre op Technique: Single frontal view of the chest was obtained Comparison: XY CHEST PORTABLE on DOS: 07/23/24, XY CHEST PORTABLE on DOS: 03/04/24, XY CHEST PORTABLE o n DOS: 09/28/23, XY CHEST PORTABLE on DOS: 07/23/24 FINDINGS: Lines and Tubes: None Lungs: Bilateral perihilar peribronchial thickening with cardiomegaly. Pleura: No effusion. No pneumothorax. Cardiomediastinal contours: Cardiomegaly Bones: No acute osseous abnormality. IMPRESSION: 1. Findings may represent congestive failure.
[2024-09-27 07:12] LABS: Basophils # (auto) 0.1 10 ^3/uL (0-0.2); Basophils % (auto) 0.7 % (0.0-2.0); Eosinophils # (auto) 0.1 10 ^3/uL (0-0.8); Eosinophils % (auto) 1.2 % (0.0-7.0); Hematocrit 32.6 % (41.0-53.0); Hemoglobin 10.9 g/dL (13.5-17.5); Lymphocytes # (auto) 0.9 10 ^3/uL (0.4-5.4); Mean Corpuscular Hemoglobin 31.7 pg (28.0-32.0); Mean Corpuscular Hgb Conc. 33.4 g/dL (32.0-36.0); Monocytes # (auto) 0.9 10 ^3/uL (0-1.3); Monocytes % (auto) 7.4 % (0.0-12.0); Neutrophils # (auto) 10.4 10 ^3/uL (1.6-8.6); Neutrophils % (auto) 83.7 % (37.0-80.0); Platelet Count (auto) 268 10^3/uL (140-450); Red Blood Cells 3.43 10^6/uL (4.5-5.90); Red Cell Distribution Width 16.1 % (11.8-14.3); White Blood Cell 12.4 10^3/uL (4.4-10.8)
[2024-09-27] MEDS: SODIUM CHL 0.9% 1000 ML BAG XX ONE (07:29)
--- NOTE | 2024-09-27 09:22 | DVHPN2 ---
Progress Note Date Seen: Sep 27, 2024 Medical Necessity Reason Pt with a Central, PICC or Fol: No Subjective Patient reports: No new complaints Other Systems: Patient seen and examined by myself today in follow-up Objective vital signs Vital Sign Date Time Temp Pulse Resp B/P (MAP) Pulse Ox O2 Delivery O2 Flow Rate FiO2 09/27/24 05:55 179/92 09/27/24 05:00 97.5 74 18 95 97.5 09/26/24 20:00 Room Air* 0 21 Total Intake and Output 09/26/24 09/26/24 09/27/24 15:00 23:00 07:00 Intake Total 50 ml 0 ml 0 ml Balance 50 ml 0 ml 0 ml medications Current Medications Medications Dose Ordered Sig/Vane Route Start Time Stop Time Status Last Admin Dose Admin Nitroglycerin 0.4 mg Q5MINP PRN SL 09/25/24 23:30 Morphine Sulfate 2 mg Q30M PRN IV 09/25/24 23:30 Furosemide 40 mg BID IV 09/26/24 10:00 Cancel Vancomycin HCl 0 ml @ 0 mls/hr UD IV 09/25/24 23:30 Piperacillin Sod/ Tazobactam Sod 50 ml @ 50 mls/hr Q8HR IV 09/26/24 06:00 Cancel Diagnostic Test (Pha) 1 strip ACHS 09/26/24 07:00 09/26/24 21:49 1 STRIP Insulin Human Regular ACHS SC 09/26/24 07:00 09/26/24 17:41 2 UNITS Dextrose 50 ml UD PRN IV 09/25/24 23:30 Hydralazine HCl 25 mg Q6HP PRN PO 09/26/24 03:15 09/26/24 03:36 25 MG Furosemide 40 mg BIDD IV 09/26/24 06:00 09/27/24 05:55 40 MG Hydralazine HCl 25 mg Q6HR PRN IV 09/26/24 06:00 09/27/24 05:55 25 MG Sevelamer HCl 1,600 mg TIDWM PO 09/26/24 18:00 09/26/24 17:45 1,600 MG Piperacillin Sod/ Tazobactam Sod 50 ml @ 50 mls/hr Q12H IV 09/27/24 12:00 Examination: LUNGS:Normal, CVS:Normal, ABDOMEN:Normal, MSK:Abnormal laboratory and microbiology Laboratory Tests 09/27/24 05:53 09/26/24 05:03 Test 09/26/24 05:03 Range/Units Serum Glucose 141 H 74-106 mg/dL Microbiology Date/Time Source Procedure Growth Status 09/25/24 19:38 Blood Blood Culture - Preliminary NO GROWTH AFTER 24 HOURS OF INCUBATION. Resulted Problem List/Assessment/Plan Problem List/Assessment/Plan End-stage renal disease on hemodialysis Chronic systolic Congestive heart failure Diabetes mellitus type 2 Hypertensive urgency Right foot nonhealing wounds Peripheral arterial disease Left below-knee amputation Anemia of chronic kidney disease Hyperphosphatemia Recommendations Hemodialysis tomorrow Epogen 86201 subQ 3 times weekly Resume home medication Blood pressure control Insulin sliding scale Fluid restrictions Renal diet IV antibiotics Renvela 1600 mg p.o. t.i.d. with meals Podiatry consult We will continue to follow Plan discussed with: Patient My Orders My Orders Orders - PREM WAGONER MD Procedure Category Date Status Time Hemodialysis Orders ORDERS 09/26/24 Transmitted 10:10 Dialysis Nursing HALIMA 09/26/24 In Process Message 10:10 Document Fluid Input HALIMA 09/26/24 In Process And Outpu 10:10 Sevelamer (Renagel) PHA 09/26/24 In Process 18:00 PREM WAGONER MD Sep 27, 2024 09:22
[2024-09-27] MEDS: PIPERACILLIN-TAZOB 2.25GM 50 ML IV SCH ×2 (11:44)
[2024-09-27] MEDS ORDERED: SODIUM CHLORIDE LOCK 10 ML ONE (11:51)
[2024-09-27] MEDS ORDERED: LIDOCAINE 1% INJ PF 5ML AMP ONE (11:51)
[2024-09-27] MEDS ORDERED: fentaNYL CITRATE 100 MCG/2 ML VL ONE (11:51)
[2024-09-27] MEDS ORDERED: PROPOFOL 10 MG/ML 20 ML IV ONE (11:51)
[2024-09-27] MEDS ORDERED: MIDAZOLAM HCL 2MG/2ML 2ml VIAL (1mg/ml) ONE (11:51)
[2024-09-27] MEDS ORDERED: KETAMINE 50mg/ML 1ml syringe ONE (11:51)
[2024-09-27] MEDS ORDERED: MORPHINE SULFATE 4 MG/ML SYR/VIAL IV PRN (12:00)
[2024-09-27] MEDS ORDERED: HYDROmorphone HCL 2 MG/ML VL/or syr IV PRN ×2 (12:00)
[2024-09-27] MEDS ORDERED: MORPHINE SULFATE INJ 2 MG/ml SYRG IV PRN (12:00)
--- NOTE | 2024-09-27 12:49 | DVHPN2 ---
Subjective 73 y.o. male with ESRD, CAD, PAD, HTN, DM, left BKA, blindness arrived to the ER c/o right foot swelling and pain. When asked when it started, patient replied: "3 days ago". However, the foot and the lower leg are red with tight pitting 2- 3+ edema, many scabs and a drainage on the medial side of the big toe. Patient is a poor historian and doesn't know his PMH. Changes from previous H/P or p: No Changes Objective Vitals Vital Signs Date Time Temp Pulse Resp B/P (MAP) Pulse Ox O2 Delivery O2 Flow Rate FiO2 09/27/24 09:21 98.3 76 20 153/63 (93) 90 98.3 09/27/24 08:00 Room Air* 0 21 Intake/Output Intake and Output 09/27/24 07:00 Intake Total 50 ml Balance 50 ml Intake Oral 0 ml IV Total 50 ml # Voids 2 Exam Dermatological: Skin is dry with mild erythema and some maceration around the wound site No gross deformities noted Mild non-pitting edema present bilaterally right foot medial hallux wound with purulent drainage and fluctuance Vascular: Dorsalis pedis and posterior tibial pulses are 1+ bilaterally Capillary refill is under 2 seconds Skin temperature is warm bilaterally Neurologic: Protective sensation is absent on the plantar forefoot bilaterally Monofilament testing reveals decreased sensation in multiple plantar sites Musculoskeletal: Range of motion at the ankle and MTP joints is within normal limits. Strength is 5/5 in all tested muscle groups. Gait is antalgic due to offloading of the affected limb. Medications Current Medications Medications Dose Ordered Sig/Vane Route Start Time Stop Time Status Last Admin Dose Admin Nitroglycerin 0.4 mg Q5MINP PRN SL 09/25/24 23:30 Morphine Sulfate 2 mg Q30M PRN IV 09/25/24 23:30 Furosemide 40 mg BID IV 09/26/24 10:00 Cancel Vancomycin HCl 0 ml @ 0 mls/hr UD IV 09/25/24 23:30 Piperacillin Sod/ Tazobactam Sod 50 ml @ 50 mls/hr Q8HR IV 09/26/24 06:00 Cancel Diagnostic Test (Pha) 1 strip ACHS 09/26/24 07:00 09/27/24 11:44 1 STRIP Insulin Human Regular ACHS SC 09/26/24 07:00 09/26/24 17:41 2 UNITS Dextrose 50 ml UD PRN IV 09/25/24 23:30 Hydralazine HCl 25 mg Q6HP PRN PO 09/26/24 03:15 09/26/24 03:36 25 MG Furosemide 40 mg BIDD IV 09/26/24 06:00 09/27/24 05:55 40 MG Hydralazine HCl 25 mg Q6HR PRN IV 09/26/24 06:00 09/27/24 05:55 25 MG Sevelamer HCl 1,600 mg TIDWM PO 09/26/24 18:00 09/26/24 17:45 1,600 MG Piperacillin Sod/ Tazobactam Sod 50 ml @ 50 mls/hr Q12H IV 09/27/24 12:00 09/27/24 11:44 50 MLS/HR Morphine Sulfate 2 mg Q4H PRN IV 09/27/24 12:00 09/27/24 16:01 Morphine Sulfate 1 mg Q30M PRN IV 09/27/24 12:00 09/27/24 14:01 Laboratory Results Laboratory Tests 09/26/24 05:03 09/27/24 05:53 Microbiology Microbiology Date/Time Source Procedure Growth Status 09/25/24 19:38 Blood Blood Culture - Preliminary NO GROWTH AFTER 24 HOURS OF INCUBATION. Resulted Assessment/Plan Assessment/Plan ASSESSMENT: Patient is a 73 year old seen on the floor for a worsening ulcer PLAN: - The patients chart was reviewed, clinical findings were discussed with the patient, the etiologies of the conditions were discussed in detail, and a treatment plan was agreed to at this time, with both oral and written instructions provided. - reviewed advanced imaging - discussed plan is to perform an incision and drainage tomorrow - patient will be NPO at midnight - take him to the OR tomorrow - we will get cultures in the OR - can weightbear as tolerated in postoperative shoe All questions were answered and concerns addressed to the patient's satisfaction. The patient was given the phone number to the clinic and was told how to make contact with the clinic should any concerns or questions arise. Patient understands that if any questions or concerns arise prior to the next appointment, we should be contacted immediately. FOLLOW-UP: Continue to follow while inpatient Plan discussed with: Patient My Orders Orders - SHIRLENE JIN DPM Procedure Category Date Status Time Npo (Nothing By DIET 09/27/24 Transmitted Mouth) Diet Breakfast Obtain Consent For: ORDERS 09/26/24 Transmitted 15:25 Problem List: (1) Blindness of both eyes (2) DM (diabetes mellitus) (3) ESRD on dialysis (4) Soft tissue infection of foot (5) HTN (hypertension) (6) Hyperkalemia (7) Urinary tract infection (8) Shortness of breath (9) Respiratory alkalosis (10) Generalized weakness (11) Weakness (12) Abdominal pain (13) Generalized abdominal pain (14) End stage renal disease on dialysis (15) Pleural effusion on right (16) Acute exacerbation of congestive heart failure (17) Hypertensive urgency (18) End-stage renal disease on hemodialysis (19) Pneumonia, unspecified organism (20) Elevated troponin I level (21) Elevated lactic acid level (22) Intractable abdominal pain (23) Chronic kidney disease on chronic dialysis (24) Diabetes (25) Cellulitis of right lower extremity Date of Service: Sep 27, 2024 Billing Provider: SHIRLENE JIN DPM Common Visit Codes: [id number] INP/OBS CARE(HIGH) SHIRLENE JIN DPM Sep 27, 2024 12:49
--- NOTE | 2024-09-27 12:55 | DVH ---
BILATERAL Lower Extremity Arterial Duplex Date: 09/27/2024 10:46 AM Clinical History: Arterial doppler for stenosis Comparison: None Technique: Duplex Doppler evaluation including color Doppler and spectral/pulsed waveform analysis of the lower extremity arteries was performed. Finding: RIGHT: Peak systolic velocities are as follows: EXTRUDING MACHINE OPERATOR 99 cm/s Deep femoral 63 cm/s SFA proximal 61 cm/s SFA mid-portion 100 cm/s SFA distal 67 cm/s Popliteal 68 cm/s Posterior tibial 58 cm/s Dorsalis pedis 34 cm/s The waveforms are triphasic and monophasic wave form posterior tibial artery and dorsal pedal arterty . . REFERENCE VALUES, [facility] (COUNTS INCLUDE [facility] BEDS AT THE [facility]) vascular Imaging Lab Criteria: Peak systolic velocity ranges (in cm/sec) are as follows: <150 cm/s - <20 % stenosis 150-200 cm/s - 20-49% stenosis 200-300 cm/s - 50-75% stenosis >300 cm/s -> 75% stenosis IMPRESSION: monophasic wave form posterior tibial artery and dorsal pedal arterty. .
[2024-09-27] MEDS: BUPIVACAINE 0.5% MPF INJ 30ML SDV IJ ONE (13:08)
--- NOTE | 2024-09-27 13:11 | DVH ---
Indication: Right lower extremity PAD evaluation, time test with dialysi Technique: CT axial images of the right lower extremity are obtained with intravenous contrast. Laurie nal and sagittal reformats were obtained. Radiation Dose Information: CTDI volume is 7.5 mGy. Dose-length product is 842.97 mGy*cm Comparison: None FINDINGS: Large volume stool within the rectosigmoid colon. Presacral edema. Moderate volume free pelvic fluid . Soft tissue edema /anasarca. The right external iliac artery demonstrates no high-grade stenosis. Right PUNCH MOLDER demonstrates no high-g rade stenosis. The right SFA demonstrates extensive atherosclerotic calcification disease with modera te stenosis distally, approximately 50%. Right popliteal artery demonstrates high-grade stenosis of t he P3 segment, 70-80% stenosis. The right anterior tibial artery is occluded. Extensive calcification of the infrapopliteal/ tibial vasculature precludes characterization. Right posterior tibial artery also appears occluded. Right peroneal artery also appears occluded. There is collateral reconstitut ion of plantar artery branches. Small suprapatellar effusion. Diffuse right lower extremity soft tissue edema. IMPRESSION: Severe peripheral arterial disease 1. High-grade stenosis of right popliteal artery ( 70-80 % ) . 2. Occlusion of right anterior tibial and likely posterior tibial arteries. Recommend duplex arterial ultrasound to further characterize as there is extensive intimal calcification disease precluding ap propriate evaluation of the infrapopliteal/ tibial vasculature 3. Moderate stenosis of distal right SFA. 4. Large volume stool within the rectosigmoid colon. Presacral edema. Moderate volume free pelvic fl uid. Soft tissue edema /anasarca.
--- NOTE | 2024-09-27 13:15 | DVHOP2 ---
Operative Report - 2 Report Details Date: 09/27/24 Preop Diagnosis: 1. Right foot osteomyelitis 2. Right foot abscess 3. Right foot cellulitis 4. Right foot gangrene Postop Diagnosis: Same as preop Surgeon: Shirlene Jin MD Anesthesiologist: See anesthesia Anesthesia: Mac Consent: The patient was informed of the risks and benefits of the procedure. These include but are not limited to complications of anesthesia, postoperative infection, incomplete relief of symptoms, recurrence of symptoms, damage to blood vessels, nerves and tendons, deep venous thrombosis, pulmonary embolism and possible need for repeat surgery in the future. Complications: None Estimated Blood Loss: Minimal Fluids: See anesthesia Findings: Consistent with diagnosis Indications for Surgery: Worsening right foot wound Name of Procedure Performed 1. Right foot I&D to bone 2. Right foot bone biopsy first metatarsal () Procedure Details Procedure Details: PRE-PROCEDURE INFORMATION: In the pre-op holding area, the extremity to be operated on was clearly marked and the patient verified correct laterality of the marking. The patient was transferred to the OR table and placed in a supine position. A timeout was performed in which identification of the correct patient, procedure, location, and materials was done. The right foot and leg were prepped and draped in normal sterile fashion. DESCRIPTION OF PROCEDURE: Attention was directed to the right where area of fluctuance was noted. An incision was made over this area and was deepened through blunt dissection. The incision was deepened to the level of abscess and bone. Care was taken to the dissection to avoid any neurovascular and tendinous structures. The incision was deepened to the bone, and the abscess appeared to be purulent fluid consistent with pus. The cortices of the bone was then removed with rongeur an all necrotic tissue. After the abscess was drained, the area was irrigated with 3 L normal saline using cysto tubing. Deep cultures were then obtained from the wound. The area was then inspected and any areas of tracking, especially along the tendons were also drained. A bone biopsy was then taken of the right 1st metatarsal which was deepened to the muscle belly and tendons. The bone was then sent to pathology to determine the extent of osteomyelitis. The wound was packed with Betadine-soaked gauze and we will need to be closed at a later date. Patient was placed in a postop shoe POSTOPERATIVE INFORMATION: The patient tolerated the above noted procedure and anesthesia well and was transferred to the PACU with vital signs stable, and vascular status intact with capillary refill intact to all digits. Deep cultures were taken. Bone biopsy was taken. Patient will return to the floor and continue IV antibiotics. Patient will need subsequent procedure for possible closure graft placement depending on how the wound looks in a few days Specimen: Right 1st metatarsal Condition Good Disposition Still a Patient SHIRLENE JIN DPM Sep 27, 2024 13:15
--- NOTE | 2024-09-27 13:59 | DVHPN2 ---
Progress Note - Dictate Date Seen: Sep 27, 2024 Medical Necessity Reason Pt with a Central, PICC or Fol: No Subjective Patient feels well. Discussed plan for surgery today. vital signs Vital Sign Date Time Temp Pulse Resp B/P (MAP) Pulse Ox O2 Delivery O2 Flow Rate FiO2 09/27/24 13:17 100 Mask 7.0 09/27/24 13:17 100 09/27/24 09:21 98.3 76 20 153/63 (93) 98.3 Total Intake and Output 09/26/24 09/26/24 09/27/24 15:00 23:00 07:00 Intake Total 50 ml 0 ml 0 ml Balance 50 ml 0 ml 0 ml medications Current Medications Medications Dose Ordered Sig/Vane Route Start Time Stop Time Status Last Admin Dose Admin Nitroglycerin 0.4 mg Q5MINP PRN SL 09/25/24 23:30 Morphine Sulfate 2 mg Q30M PRN IV 09/25/24 23:30 Furosemide 40 mg BID IV 09/26/24 10:00 Cancel Vancomycin HCl 0 ml @ 0 mls/hr UD IV 09/25/24 23:30 Piperacillin Sod/ Tazobactam Sod 50 ml @ 50 mls/hr Q8HR IV 09/26/24 06:00 Cancel Diagnostic Test (Pha) 1 strip ACHS 09/26/24 07:00 09/27/24 11:44 1 STRIP Insulin Human Regular ACHS SC 09/26/24 07:00 09/26/24 17:41 2 UNITS Dextrose 50 ml UD PRN IV 09/25/24 23:30 Hydralazine HCl 25 mg Q6HP PRN PO 09/26/24 03:15 09/26/24 03:36 25 MG Furosemide 40 mg BIDD IV 09/26/24 06:00 09/27/24 05:55 40 MG Hydralazine HCl 25 mg Q6HR PRN IV 09/26/24 06:00 09/27/24 05:55 25 MG Sevelamer HCl 1,600 mg TIDWM PO 09/26/24 18:00 09/26/24 17:45 1,600 MG Piperacillin Sod/ Tazobactam Sod 50 ml @ 50 mls/hr Q12H IV 09/27/24 12:00 09/27/24 11:44 50 MLS/HR Morphine Sulfate 2 mg Q4H PRN IV 09/27/24 12:00 09/27/24 16:01 Morphine Sulfate 1 mg Q30M PRN IV 09/27/24 12:00 09/27/24 14:01 objective General appearance: No acute distress Respiratory: Lungs clear to auscultation. No wheezing, crackles Cardiovascular: Regular rate and rhythm, no murmurs. No edema Abdomen: Soft, nondistended, nontender, bowel sounds present MSK: Normal range of motion.Rt lower ext ulcer Neuro: Alert, no neurological deficits Psych: Appropriate mood and affect. laboratory and microbiology Laboratory Tests 09/27/24 05:53 09/26/24 05:03 Test 09/26/24 05:03 Range/Units Serum Glucose 141 H 74-106 mg/dL Assessment/Plan 1. Foot Ulcer 2. ESRD on HD 3. Type 2 DM -Pt s/p I/D to bone today. -Bone biopsy/cultures pending -Podiatry recommending possible graft/flap in the next few days -Continue vancomycin and zosyn -Dr. Wallace, ID consulted -US arterial pending and CTA of RLE to evaluate for underlying PAD -Nephrology consulted for ESRD MWF. Will time CTA with HD. -Insulin sliding scale -Daily CBC and CMP Plan discussed with: Patient FER ANDERSON Osmin DO Sep 27, 2024 13:59
[2024-09-27] MEDS: SUCCINYLCHOLINE CHLORIDE 20 MG/ML 10ML VIAL IV ONE (14:13)
[2024-09-27] MEDS: IOHEXOL 350 MG/ML 100ML IJ ONE (14:13)
[2024-09-27] MEDS: KETOROLAC TROMETH 30 MG/ML 1ML VIAL IV ONE (14:14)
[2024-09-27] MEDS: ACCU-CHEK COMFORT CURVE STRIP VI ONE (14:14)
[2024-09-27] MEDS: METOCLOPRAMIDE HCL 5MG/ml INJ 2ml VIAL IV ONE (14:14)
[2024-09-27] MEDS: VANCOMYCIN 500mg/100mL 100 ML IV ONE (17:17)
[2024-09-27] MEDS: HYDROcodone-ACET 5/325MG TAB PO PRN (21:33)
[2024-09-28] VITALS (8 sets, daily range): BP systolic 139–183; BP diastolic 40–96; PULSE 68–95; RESP 18–20; TEMP 97.8–98.7; O2SAT 90–100
[2024-09-28] MEDS: MORPHINE SULFATE 4 MG/ML SYR/VIAL IV PRN (00:17)
--- NOTE | 2024-09-28 10:52 | DVHPN2 ---
Progress Note Date Seen: Sep 28, 2024 Medical Necessity Reason Pt with a Central, PICC or Fol: No Subjective Patient reports: No new complaints Other Systems: Patient seen and examined by myself today on follow-up Patient examined hemodialysis, blood pressure stable Objective vital signs Vital Sign Date Time Temp Pulse Resp B/P (MAP) Pulse Ox O2 Delivery O2 Flow Rate FiO2 09/28/24 09:41 78 18 144/101 09/28/24 08:00 96 Room Air* 0 21 09/28/24 07:46 97.8 97.8 Total Intake and Output 09/27/24 09/27/24 09/28/24 15:00 23:00 07:00 Intake Total 10 ml 0 ml 0 ml Balance 10 ml 0 ml 0 ml medications Current Medications Medications Dose Ordered Sig/Vane Route Start Time Stop Time Status Last Admin Dose Admin Nitroglycerin 0.4 mg Q5MINP PRN SL 09/25/24 23:30 Morphine Sulfate 2 mg Q30M PRN IV 09/25/24 23:30 Furosemide 40 mg BID IV 09/26/24 10:00 Cancel Vancomycin HCl 0 ml @ 0 mls/hr UD IV 09/25/24 23:30 Piperacillin Sod/ Tazobactam Sod 50 ml @ 50 mls/hr Q8HR IV 09/26/24 06:00 Cancel Diagnostic Test (Pha) 1 strip ACHS 09/26/24 07:00 09/28/24 06:13 1 STRIP Insulin Human Regular ACHS SC 09/26/24 07:00 09/27/24 22:00 3 UNITS Dextrose 50 ml UD PRN IV 09/25/24 23:30 Hydralazine HCl 25 mg Q6HP PRN PO 09/26/24 03:15 09/26/24 03:36 25 MG Furosemide 40 mg BIDD IV 09/26/24 06:00 09/28/24 05:36 40 MG Hydralazine HCl 25 mg Q6HR PRN IV 09/26/24 06:00 09/28/24 06:21 25 MG Sevelamer HCl 1,600 mg TIDWM PO 09/26/24 18:00 09/28/24 08:41 1,600 MG Piperacillin Sod/ Tazobactam Sod 50 ml @ 50 mls/hr Q12H IV 09/27/24 12:00 09/28/24 00:16 50 MLS/HR Acetaminophen/ Hydrocodone Bitart 1 tab Q6HPRN PRN PO 09/27/24 21:15 09/27/24 21:33 1 TAB Morphine Sulfate 2 mg Q4HPRN PRN IV 09/27/24 21:15 09/28/24 09:41 2 MG Examination: LUNGS:Normal, CVS:Normal, ABDOMEN:Normal, MSK:Abnormal laboratory and microbiology Laboratory Tests 09/28/24 05:35 09/27/24 05:53 09/26/24 05:03 Test 09/26/24 05:03 Range/Units Serum Glucose 141 H 74-106 mg/dL Microbiology Date/Time Source Procedure Growth Status 09/27/24 13:09 Foot Right Gram Stain Pending Resulted 09/27/24 13:09 Foot Right Anaerobic Culture Pending Resulted 09/27/24 13:09 Foot Right Aerobic Culture - Preliminary Resulted 09/25/24 19:38 Blood Blood Culture - Preliminary NO GROWTH AFTER 48 HOURS OF INCUBATION. Resulted Problem List/Assessment/Plan Problem List/Assessment/Plan End-stage renal disease on hemodialysis Chronic systolic Congestive heart failure Diabetes mellitus type 2 Hypertensive urgency Right foot nonhealing wounds Peripheral arterial disease Left below-knee amputation Anemia of chronic kidney disease Hyperphosphatemia Recommendations Continue with UF to 3 L as tolerated Epogen 15378 subQ 3 times weekly Resume home medication Blood pressure control Insulin sliding scale Fluid restrictions Renal diet IV antibiotics Renvela 1600 mg p.o. t.i.d. with meals Podiatry consult We will continue to follow Plan discussed with: Patient PREM WAGONER MD Sep 28, 2024 10:52
--- NOTE | 2024-09-28 12:37 | DVHPN2 ---
Subjective 73 y.o. male with ESRD, CAD, PAD, HTN, DM, left BKA, blindness arrived to the ER c/o right foot swelling and pain. When asked when it started, patient replied: "3 days ago". However, the foot and the lower leg are red with tight pitting 2- 3+ edema, many scabs and a drainage on the medial side of the big toe. Patient is a poor historian and doesn't know his PMH. Changes from previous H/P or p: No Changes Objective Vitals Vital Signs Date Time Temp Pulse Resp B/P (MAP) Pulse Ox O2 Delivery O2 Flow Rate FiO2 09/28/24 09:41 78 18 144/101 09/28/24 08:00 96 Room Air* 0 21 09/28/24 07:46 97.8 97.8 Intake/Output Intake and Output 09/28/24 07:00 Intake Total 10 ml Balance 10 ml Intake Oral 0 ml IV Total 10 ml Exam Dermatological: Skin is dry with mild erythema and some maceration around the wound site No gross deformities noted Mild non-pitting edema present bilaterally right foot medial hallux wound with purulent drainage and fluctuance Vascular: Dorsalis pedis and posterior tibial pulses are 1+ bilaterally Capillary refill is under 2 seconds Skin temperature is warm bilaterally Neurologic: Protective sensation is absent on the plantar forefoot bilaterally Monofilament testing reveals decreased sensation in multiple plantar sites Musculoskeletal: Range of motion at the ankle and MTP joints is within normal limits. Strength is 5/5 in all tested muscle groups. Gait is antalgic due to offloading of the affected limb. Medications Current Medications Medications Dose Ordered Sig/Vane Route Start Time Stop Time Status Last Admin Dose Admin Nitroglycerin 0.4 mg Q5MINP PRN SL 09/25/24 23:30 Morphine Sulfate 2 mg Q30M PRN IV 09/25/24 23:30 Furosemide 40 mg BID IV 09/26/24 10:00 Cancel Vancomycin HCl 0 ml @ 0 mls/hr UD IV 09/25/24 23:30 Piperacillin Sod/ Tazobactam Sod 50 ml @ 50 mls/hr Q8HR IV 09/26/24 06:00 Cancel Diagnostic Test (Pha) 1 strip ACHS 09/26/24 07:00 09/28/24 06:13 1 STRIP Insulin Human Regular ACHS SC 09/26/24 07:00 09/27/24 22:00 3 UNITS Dextrose 50 ml UD PRN IV 09/25/24 23:30 Hydralazine HCl 25 mg Q6HP PRN PO 09/26/24 03:15 09/26/24 03:36 25 MG Furosemide 40 mg BIDD IV 09/26/24 06:00 09/28/24 05:36 40 MG Hydralazine HCl 25 mg Q6HR PRN IV 09/26/24 06:00 09/28/24 06:21 25 MG Sevelamer HCl 1,600 mg TIDWM PO 09/26/24 18:00 09/28/24 08:41 1,600 MG Acetaminophen/ Hydrocodone Bitart 1 tab Q6HPRN PRN PO 09/27/24 21:15 09/27/24 21:33 1 TAB Morphine Sulfate 2 mg Q4HPRN PRN IV 09/27/24 21:15 09/28/24 09:41 2 MG Piperacillin Sod/ Tazobactam Sod 50 ml @ 50 mls/hr Q8HR IV 09/28/24 14:00 Laboratory Results Laboratory Tests 09/26/24 05:03 09/27/24 05:53 09/28/24 05:35 Microbiology Microbiology Date/Time Source Procedure Growth Status 09/27/24 13:09 Foot Right Gram Stain Pending Resulted 09/27/24 13:09 Foot Right Anaerobic Culture Pending Resulted 09/27/24 13:09 Foot Right Aerobic Culture - Preliminary Resulted 09/25/24 19:38 Blood Blood Culture - Preliminary NO GROWTH AFTER 48 HOURS OF INCUBATION. Resulted Assessment/Plan Assessment/Plan ASSESSMENT: Patient is a 73 year old seen on the floor follow up s/p foot I&D PLAN: - The patients chart was reviewed, clinical findings were discussed with the patient, the etiologies of the conditions were discussed in detail, and a treatment plan was agreed to at this time, with both oral and written instructions provided. - reviewed advanced imaging - reviewed all of the labs and pathology - discussed plan is to perform a subsequent incision and drainage with possible closure - patient will be NPO at midnight - take him to the OR tomorrow - it was determined that multiple I&Ds will be necessary to save the limb - evaluted patients both feet and there is excessive dryness and onychomycosis that patient would benefit from routine foot care as an outpatient - can weightbear as tolerated in postoperative shoe All questions were answered and concerns addressed to the patient's satisfaction. The patient was given the phone number to the clinic and was told how to make contact with the clinic should any concerns or questions arise. Patient understands that if any questions or concerns arise prior to the next appointment, we should be contacted immediately. FOLLOW-UP: Continue to follow while inpatient Plan discussed with: Patient My Orders Orders - SHIRLENE JIN DPM Procedure Category Date Status Time Routine Bacterial RJ 09/27/24 In Process Culture 13:09 Gram Stain RJ 09/27/24 In Process 13:09 Anaerobic Culture RJ 09/27/24 In Process 13:09 Problem List: (1) Blindness of both eyes (2) DM (diabetes mellitus) (3) ESRD on dialysis (4) Soft tissue infection of foot (5) HTN (hypertension) (6) Hyperkalemia (7) Urinary tract infection (8) Shortness of breath (9) Respiratory alkalosis (10) Generalized weakness (11) Weakness (12) Abdominal pain (13) Generalized abdominal pain (14) End stage renal disease on dialysis (15) Pleural effusion on right (16) Acute exacerbation of congestive heart failure (17) Hypertensive urgency (18) End-stage renal disease on hemodialysis (19) Pneumonia, unspecified organism (20) Elevated troponin I level (21) Elevated lactic acid level (22) Intractable abdominal pain (23) Chronic kidney disease on chronic dialysis (24) Diabetes (25) Cellulitis of right lower extremity Date of Service: Sep 28, 2024 Billing Provider: SHIRLENE JIN DPM Common Visit Codes: 11426-[id number] INP/OBS CARE(HIGH) SHIRLENE JIN DPM Sep 28, 2024 12:37
--- NOTE | 2024-09-28 13:07 | DVHPN2 ---
Progress Note - Dictate Date Seen: Sep 28, 2024 Medical Necessity Reason Pt with a Central, PICC or Fol: Yes The following are medically ne: Mendez Catheter Reason for mendez catheter: Strict I&O Subjective Patient feels well. Discussed plan for repeat flap and I/D tomorrow. vital signs Vital Sign Date Time Temp Pulse Resp B/P (MAP) Pulse Ox O2 Delivery O2 Flow Rate FiO2 09/28/24 09:41 78 18 144/101 09/28/24 08:00 96 Room Air* 0 21 09/28/24 07:46 97.8 97.8 Total Intake and Output 09/27/24 09/27/24 09/28/24 15:00 23:00 07:00 Intake Total 10 ml 0 ml 0 ml Balance 10 ml 0 ml 0 ml medications Current Medications Medications Dose Ordered Sig/Vane Route Start Time Stop Time Status Last Admin Dose Admin Nitroglycerin 0.4 mg Q5MINP PRN SL 09/25/24 23:30 Morphine Sulfate 2 mg Q30M PRN IV 09/25/24 23:30 Furosemide 40 mg BID IV 09/26/24 10:00 Cancel Vancomycin HCl 0 ml @ 0 mls/hr UD IV 09/25/24 23:30 Piperacillin Sod/ Tazobactam Sod 50 ml @ 50 mls/hr Q8HR IV 09/26/24 06:00 Cancel Diagnostic Test (Pha) 1 strip ACHS 09/26/24 07:00 09/28/24 06:13 1 STRIP Insulin Human Regular ACHS SC 09/26/24 07:00 09/27/24 22:00 3 UNITS Dextrose 50 ml UD PRN IV 09/25/24 23:30 Hydralazine HCl 25 mg Q6HP PRN PO 09/26/24 03:15 09/26/24 03:36 25 MG Furosemide 40 mg BIDD IV 09/26/24 06:00 09/28/24 05:36 40 MG Hydralazine HCl 25 mg Q6HR PRN IV 09/26/24 06:00 09/28/24 06:21 25 MG Sevelamer HCl 1,600 mg TIDWM PO 09/26/24 18:00 09/28/24 08:41 1,600 MG Acetaminophen/ Hydrocodone Bitart 1 tab Q6HPRN PRN PO 09/27/24 21:15 09/27/24 21:33 1 TAB Morphine Sulfate 2 mg Q4HPRN PRN IV 09/27/24 21:15 09/28/24 09:41 2 MG Piperacillin Sod/ Tazobactam Sod 50 ml @ 50 mls/hr Q8HR IV 09/28/24 14:00 objective General appearance: No acute distress Respiratory: Lungs clear to auscultation. No wheezing, crackles Cardiovascular: Regular rate and rhythm, no murmurs. No edema Abdomen: Soft, nondistended, nontender, bowel sounds present MSK: Normal range of motion.Rt lower ext ulcer Neuro: Alert, no neurological deficits Psych: Appropriate mood and affect. laboratory and microbiology Laboratory Tests 09/28/24 05:35 09/27/24 05:53 09/26/24 05:03 Test 09/26/24 05:03 Range/Units Serum Glucose 141 H 74-106 mg/dL Assessment/Plan 1. Foot Ulcer 2. ESRD on HD 3. Type 2 DM 4. CHF, Reduced EF 35% -Pt s/p I/D to bone done 09/27 . -Bone biopsy/cultures pending -Podiatry recommending repeat I/D on 09/29. -Continue vancomycin and zosyn -Dr. Wallace, ID consulted -US arterial and CTA of RLE consistent with severe PAD. Vascular surgery, Dr. Ball consulted. -Nephrology consulted for ESRD MWF. -Insulin sliding scale -Daily CBC and CMP Dietary Evaluation Review Comments: follow Renal diet with CCHO-60 restriction Expected Outcomes/Goals: controlled DM, maintain BW Plan discussed with: Patient FER ANDERSON Sep 28, 2024 13:07
[2024-09-28] MEDS: PIPERACILLIN-TAZOB 2.25GM 50 ML IV SCH (13:32)
--- NOTE | 2024-09-28 15:57 | DVHCONRES ---
Date Seen: Sep 28, 2024 Resident Creating Document: NICKI NAJERA Jr., MD Referring Physician gabriel Reason for Consultation Nonhealing right foot ulcer and peripheral vascular disease History of Present Illness 73 y/o M presents with relative for c/o unhealing right foot wound. Per relative, patient has a history of chronic multiple scabs to his right foot that would, normally, heal on their own after falling off. Patient's food is reported to not healing after recent scab on his inner side of his foot fell off. Patient has additional history of anemia, CHF, DM II, HLD, HTN, left BKA, and blindness. He has no reported fever, chills, nausea, vomiting, shortness of breath, or chest pain. CTA demonstrated right high-grade stenosis of the popliteal artery Past Medical History anemia, CHF, DM II, HLD, HTN, left BKA, and blindness. Past Surgical History Left AV fistula Family History: Patient reports no known family medical history. Social History Nonsmoker nondrinker Allergies: Coded Allergies: NO KNOWN ALLERGIES (Unverified , 09/28/23) Home Meds Reported Medications Nifedipine (Nifedipine Er) 30 Mg Tab, 1 TAB PO DAILY for 90 Days, #90 09/26/24 Losartan Potassium (Losartan Potassium) 50 Mg Tab, 1 TAB PO EVERY 2 DAYS for 90 Days, #45 09/26/24 Dorzolamide-Timolol (Dorzolamide Hcl/Timolol M) 1 Ml Lj, 1 ML OP UD for 90 Days, #10 04/05/24 Latanoprost (Xalatan) 0.005 % Lj, 0.005 % OP UD for 25 Days, #2.5 04/05/24 Brimonidine Tartrate-Timolol M (Brimonidine Tartrate/Paul 0.2-0.5 %) 1 Lj Lj, 1 LJ OP UD for 18 Days, #5 04/05/24 Atorvastatin Calcium (Lipitor) 20 Mg Tab, 1 TAB PO DAILY, #90 TAB 1 Refill 09/29/23 Acetaminophen (Acetaminophen) 325 Mg Tab, 650 MG PO TIDP PRN for PAIN SCALE 1 THRU 6 for 30 Days, MG 0 Refills 09/29/23 Calcium Acetate (Phosphate Bin (Calcium Acetate) 667 Mg Cap, 667 MG PO TIDWM for 30 Days, MG 09/29/23 Aspirin (Aspirin Low Dose) 81 Mg Tab, 1 TAB PO DAILY for 60 Days, #60 09/29/23 Current Medications Current Medications Medications (Trade) Dose Ordered Sig/Vane Route PRN Reason Start Time Stop Time Status Last Admin Acetaminophen/ Hydrocodone Bitart (Nelson 5/325MG Tab) 1 tab Q6HPRN PRN PO MILD PAIN (1-3 PAIN SCALE) 09/27/24 21:15 09/27/24 21:33 Morphine Sulfate 2 mg Q4HPRN PRN IV MODERATE PAIN (4-6 PAIN SCALE) 09/27/24 21:15 09/28/24 09:41 Piperacillin Sod/ Tazobactam Sod 50 ml @ 50 mls/hr Q8HR IV 09/28/24 14:00 09/28/24 13:32 Review of Systems All systems reviewed otherwise negative other than what is in HPI. Vital Signs Vital Signs Date Time Temp Pulse Resp B/P (MAP) Pulse Ox O2 Delivery O2 Flow Rate FiO2 09/28/24 13:00 98.3 88 20 154/92 (112) 96 98.3 09/28/24 08:00 Room Air* 0 21 Physical Exam Head eyes ears nose and throat exam eyes are nonicteric conjunctiva is pink neck was supple no JVD no lymphadenopathy no carotid bruits the lungs are clear to auscultation heart was regular rate and rhythm abdomen was soft nontender no pulsatile abdominal mass or bruits lower extremities palpable femoral pulses bilaterally nonpalpable pedal pulses. The right foot is dressed with a new fresh surgical bandage. Labs/Diagnostic Data Labs Test 09/28/24 11:11 09/28/24 05:35 09/27/24 05:53 09/26/24 05:03 Range/Units POC Glucose 171 H 70-106 mg/dl Creatinine 5.50 H 0.700-1.30 mg/dL Glomerular Filtration Rate Calc 10 >90 mL/min Random Vancomycin Level 16.5 H 5-10 ug/mL White Blood Count 12.4 H 4.4-10.8 10^3/uL Red Blood Count 3.43 L 4.5-5.90 10^6/uL Hemoglobin 10.9 L 13.5-17.5 g/dL Hematocrit 32.6 #L 41.0-53.0 % Mean Corpuscular Volume 95.0 80.0-100.0 fL Mean Corpuscular Hemoglobin 31.7 28.0-32.0 pg Mean Corpuscular Hemoglobin Concent 33.4 32.0-36.0 g/dL Red Cell Distribution Width 16.1 H 11.8-14.3 % Platelet Count 268 140-450 10^3/uL Mean Platelet Volume 8.1 6.9-10.8 fL Neutrophils (%) (Auto) 83.7 H 37.0-80.0 % Lymphocytes (%) (Auto) 7.0 L 10.0-50.0 % Monocytes (%) (Auto) 7.4 0.0-12.0 % Eosinophils (%) (Auto) 1.2 0.0-7.0 % Basophils (%) (Auto) 0.7 0.0-2.0 % Neutrophils # (Auto) 10.4 H 1.6-8.6 10 ^3/uL Lymphocytes # (Auto) 0.9 0.4-5.4 10 ^3/uL Monocytes # (Auto) 0.9 0-1.3 10 ^3/uL Eosinophils # (Auto) 0.1 0-0.8 10 ^3/uL Basophils # (Auto) 0.1 0-0.2 10 ^3/uL Nucleated Red Blood Cells 0.0 % Sodium Level 134 L 136-145 mmol/L Potassium Level 5.0 3.5-5.1 mmol/L Chloride Level 97 L 98-107 mmol/L Carbon Dioxide Level 24 20-31 mmol/L Anion Gap 13 5-15 Blood Urea Nitrogen 47 H 9-23 mg/dL BUN/Creatinine Ratio 8.2 L 10.0-20.0 Serum Glucose 141 H 74-106 mg/dL Hemoglobin A1c 6.2 H <5.7 % A1C Calcium Level 8.9 8.7-10.4 mg/dL Phosphorus Level 7.0 H 2.4-5.1 mg/dL Magnesium Level 1.9 1.6-2.6 mg/dL Total Bilirubin 0.6 0.2-1.0 mg/dL Aspartate Amino Transferase (AST) 16 13-40 U/L Alanine Aminotransferase (ALT) 15 7-40 U/L Alkaline Phosphatase 313 H 46-116 U/L B-Type Natriuretic Peptide > 5000.00 0-100 pg/mL Total Protein 7.0 5.7-8.2 g/dL Albumin 3.8 3.2-4.8 g/dL Vitamin D 25-Hydroxy 92.9 30.0-100 ng/mL Parathyroid Hormone (Intact) 186.1 H 18.4-80.1 pg/mL Hepatitis B Surface Antigen Negative Negative Test 09/25/24 19:38 Range/Units Prothrombin Time 12.8 H 9.3-11.8 sec Prothrombin Time INR 1.23 H 0.9-1.15 Lactic Acid Level 1.0 0.4-2.0 mmol/L Microbiology Date/Time Source Procedure Growth Status 09/27/24 13:09 Foot Right Gram Stain Pending Resulted 09/27/24 13:09 Foot Right Anaerobic Culture - Preliminary Resulted 09/27/24 13:09 Foot Right Aerobic Culture - Preliminary Resulted 09/25/24 19:38 Blood Blood Culture - Preliminary NO GROWTH AFTER 48 HOURS OF INCUBATION. Resulted Technique: CT axial images of the right lower extremity are obtained with intravenous contrast. Coronal and sagittal reformats were obtained. Radiation Dose Information: CTDI volume is 7.5 mGy. Dose-length product is 842.97 mGy*cm Comparison: None FINDINGS: Large volume stool within the rectosigmoid colon. Presacral edema. Moderate volume free pelvic fluid. Soft tissue edema /anasarca. The right external iliac artery demonstrates no high-grade stenosis. Right [employer] demonstrates no high-grade stenosis. The right SFA demonstrates extensive atherosclerotic calcification disease with moderate stenosis distally, approximately 50%. Right popliteal artery demonstrates high-grade stenosis of the P3 segment, 70-80% stenosis. The right anterior tibial artery is occluded. Extensive calcification of the infrapopliteal/ tibial vasculature precludes characterization. Right posterior tibial artery also appears occluded. Right peroneal artery also appears occluded. There is collateral reconstitution of plantar artery branches. Small suprapatellar effusion. Diffuse right lower extremity soft tissue edema. IMPRESSION: Severe peripheral arterial disease 1. High-grade stenosis of right popliteal artery ( 70-80 % ) . 2. Occlusion of right anterior tibial and likely posterior tibial arteries. Recommend duplex arterial ultrasound to further characterize as there is extensive intimal calcification disease precluding appropriate evaluation of the infrapopliteal/ tibial vasculature 3. Moderate stenosis of distal right SFA. 4. Large volume stool within the rectosigmoid colon. Presacral edema. Moderate volume free pelvic fluid. Soft tissue edema /anasarca. Assessment Severe peripheral vascular disease with nonhealing right foot ulcer. We will plan on performing a aortogram with right lower extremity endovascular revascularization tomorrow. NPO after midnight. Plan/Recommendation Severe peripheral vascular disease with nonhealing right foot ulcer. We will plan on performing a aortogram with right lower extremity endovascular revascularization tomorrow. NPO after midnight. Plan discussed with: Patient NICKI NAJERA Jr., MD Sep 28, 2024 15:57
[2024-09-28] MEDS: VANCOMYCIN 1GM/200ML PM 200 ML IV ONE (18:08)
[2024-09-28] MEDS: EPOETIN ALFA-EPBX 10,000 UNIT/1ML VIAL SC ONE (21:50)
[2024-09-29] VITALS (13 sets, daily range): BP systolic 132–183; BP diastolic 44–100; PULSE 58–92; RESP 11–18; TEMP 98–99; O2SAT 92–100
[2024-09-29 06:17] LABS: Basophils # (auto) 0.1 10 ^3/uL (0-0.2); Basophils % (auto) 0.6 % (0.0-2.0); Eosinophils # (auto) 0.1 10 ^3/uL (0-0.8); Eosinophils % (auto) 0.9 % (0.0-7.0); Hematocrit 27.4 % (41.0-53.0); Hemoglobin 9.4 g/dL (13.5-17.5); Lymphocytes # (auto) 1.1 10 ^3/uL (0.4-5.4); Mean Corpuscular Hemoglobin 32.3 pg (28.0-32.0); Mean Corpuscular Hgb Conc. 34.2 g/dL (32.0-36.0); Mean Corpuscular Volume 94.2 fL (80.0-100.0); Monocytes # (auto) 1.3 10 ^3/uL (0-1.3); Monocytes % (auto) 11.1 % (0.0-12.0); Neutrophils # (auto) 9.4 10 ^3/uL (1.6-8.6); Neutrophils % (auto) 78.4 % (37.0-80.0); Platelet Count (auto) 217 10^3/uL (140-450); Red Cell Distribution Width 16.4 % (11.8-14.3)
[2024-09-29 06:40] LABS: Anion Gap 14 (5-15); BUN/Creatinine Ratio 7.6 (10.0-20.0); Carbon Dioxide 25 mmol/L (20-31); Potassium 4.5 mmol/L (3.5-5.1); Total Protein 6.6 g/dL (5.7-8.2)
[2024-09-29 06:41] LABS: Albumin 3.6 g/dL (3.2-4.8); Bilirubin, Total 0.7 mg/dL (0.2-1.0)
[2024-09-29 06:46] LABS: Alanine Aminotransferase < 9 U/L (7-40); Alkaline Phosphatase 193 U/L (46-116); Aspartate Aminotransferase < 8 U/L (13-40); Blood Urea Nitrogen 37 mg/dL (9-23); Calcium 8.2 mg/dL (8.7-10.4); Chloride 94 mmol/L (98-107); Glucose 130 mg/dL (74-106); Sodium 133 mmol/L (136-145)
[2024-09-29] MEDS: SODIUM CHL 0.9% 1000 ML BAG XX ONE (07:01)
[2024-09-29] MEDS: IODIXANOL 320MG/ML 100ML BTL IV ONE ×2 (07:53→07:58)
[2024-09-29] MEDS: MIDAZOLAM HCL 2MG/2ML 2ml VIAL (1mg/ml) ONE (07:55)
[2024-09-29] MEDS: HEPARIN SODIUM (PORCINE) 5000 UNITS/ML 1ML VIAL ONE (07:55)
[2024-09-29] MEDS: LIDOCAINE 2%HCL (LOCAL ANESTH.) INJ 20ML MDV ONE (07:55)
[2024-09-29] MEDS: fentaNYL CITRATE 100 MCG/2 ML VL ONE (07:55)
--- NOTE | 2024-09-29 08:53 | DVHOP2 ---
Operative Report - 2 Report Details Date: 09/29/24 Preop Diagnosis: Nonhealing right foot ulcer. Severe peripheral vascular disease Postop Diagnosis: Right anterior tibial artery angioplasty, right posterior tibial artery angioplasty Surgeon: Ernie Ball MD Anesthesiologist: ralf Anesthesia: Mac Consent: The patient was informed of the risks and benefits of the procedure. These include but are not limited to complications of anesthesia, postoperative infection, incomplete relief of symptoms, recurrence of symptoms, damage to blood vessels, nerves and tendons, deep venous thrombosis, pulmonary embolism and possible need for repeat surgery in the future. Estimated Blood Loss: minimal Findings: Right Anterior tibial artery proximally and 90% stenosis treated to 0% residual stenosis proximally distal anterior tibial is occluded, right posterior tibial artery stenosis 90% treated to 20% residual Name of Procedure Performed Aortogram bilateral lower extremity arteriogram right anterior tibial artery and right posterior tibial artery angioplasty Procedure Details Procedure Details: Patient was identified in the preop hold area. He was consented and preop by myself. He was brought back to the farm laborer placed in the farm laborer table in the supine position. After adequate induction of anesthesia. The right and left gr oins were prepped and draped normal surgical fashion. 2% lidocaine was injected above the left common femoral artery. Four [place] micropuncture needle was used to cannulate the left common femoral artery. A six [place] sheath was then introduced. Left leg arteriogram demonstrated widely patent common femoral artery. A wire and catheter were then passed into the aorta. Aortogram was performed demonstrated widely patent aorta and bilateral common and external iliac arteries. Right lower extremity arteriogram demonstrated widely patent common femoral artery profunda and SFA. There was disease at the distal SFA but not hemodynamically significant. The popliteal artery was patent without significant disease. There was a possible 90% anterior tibial artery stenosis. Distal anterior cerebral artery was 100% occluded. There was multiple collaterals that were supplied to the foot. The peroneal artery was patent the posterior tibial artery had a 90% mid artery stenosis. At this point in time 30 00 units heparin was given to the patient. A destination six [place] sheath was deployed into the right SFA. Using wire and catheter 1st the anterior tibial artery was manipulated and wire was placed into the anterior tibial artery to the mid calf. A 2 mm balloon was used to angioplasty the orifice lesion. Residual stenosis was 0. attention was then place the posterior tibial artery where the wire was then passed across the mid calf lesion. A 2 mm balloon was used to angioplasty the lesion. 20% residual stenosis was noted. At this point in time wires and sheaths were removed. A six [place] Angio-Seal was deployed. Patient tolerated procedure well was taken to recovery in stable condition. Condition Good Disposition 2 pacu ERNIE BALL Jr., MD Sep 29, 2024 08:53
--- NOTE | 2024-09-29 09:13 | DVHPN2 ---
Progress Note Date Seen: Sep 29, 2024 Medical Necessity Reason Pt with a Central, PICC or Fol: Yes The following are medically ne: Mendez Catheter Reason for mendez catheter: Strict I&O Subjective Patient reports: No new complaints Other Systems: Patient seen and examined by myself today in follow-up Objective vital signs Vital Sign Date Time Temp Pulse Resp B/P (MAP) Pulse Ox O2 Delivery O2 Flow Rate FiO2 09/29/24 08:30 98.3 58 17 146/63 (90) 98 98.3 09/28/24 20:00 Room Air* 0 21 Total Intake and Output 09/28/24 09/28/24 09/29/24 15:00 23:00 07:00 Intake Total 1050 ml 50 ml Output Total 0 ml 100 ml Balance 1050 ml -50 ml medications Current Medications Medications Dose Ordered Sig/Vane Route Start Time Stop Time Status Last Admin Dose Admin Nitroglycerin 0.4 mg Q5MINP PRN SL 09/25/24 23:30 Morphine Sulfate 2 mg Q30M PRN IV 09/25/24 23:30 Furosemide 40 mg BID IV 09/26/24 10:00 Cancel Vancomycin HCl 0 ml @ 0 mls/hr UD IV 09/25/24 23:30 Piperacillin Sod/ Tazobactam Sod 50 ml @ 50 mls/hr Q8HR IV 09/26/24 06:00 Cancel Diagnostic Test (Pha) 1 strip ACHS 09/26/24 07:00 09/29/24 05:34 1 STRIP Insulin Human Regular ACHS SC 09/26/24 07:00 09/28/24 17:33 3 UNITS Dextrose 50 ml UD PRN IV 09/25/24 23:30 Hydralazine HCl 25 mg Q6HP PRN PO 09/26/24 03:15 09/26/24 03:36 25 MG Furosemide 40 mg BIDD IV 09/26/24 06:00 09/29/24 05:33 40 MG Hydralazine HCl 25 mg Q6HR PRN IV 09/26/24 06:00 09/28/24 06:21 25 MG Sevelamer HCl 1,600 mg TIDWM PO 09/26/24 18:00 09/28/24 17:31 1,600 MG Acetaminophen/ Hydrocodone Bitart 1 tab Q6HPRN PRN PO 09/27/24 21:15 6/3/25 21:33 1 TAB Morphine Sulfate 2 mg Q4HPRN PRN IV 09/27/24 21:15 09/29/24 05:33 2 MG Piperacillin Sod/ Tazobactam Sod 50 ml @ 50 mls/hr Q8HR IV 09/28/24 14:00 09/29/24 05:34 50 MLS/HR Examination: LUNGS:Normal, CVS:Normal, MSK:Abnormal laboratory and microbiology Laboratory Tests 09/29/24 05:17 Test 09/29/24 05:17 Range/Units Serum Glucose 130 H 74-106 mg/dL Microbiology Date/Time Source Procedure Growth Status 09/27/24 13:09 Foot Right Gram Stain - Final Resulted 09/27/24 13:09 Foot Right Anaerobic Culture - Preliminary Resulted 09/27/24 13:09 Foot Right Aerobic Culture - Preliminary Resulted 09/25/24 19:38 Blood Blood Culture - Preliminary NO GROWTH AFTER 72 HOURS OF INCUBATION. Resulted Problem List/Assessment/Plan Problem List/Assessment/Plan End-stage renal disease on hemodialysis Chronic systolic Congestive heart failure Diabetes mellitus type 2 Hypertensive urgency Right foot nonhealing wounds Peripheral arterial disease, status post right lower extremity angioplasty 09/28 Left below-knee amputation Anemia of chronic kidney disease Hyperphosphatemia Recommendations Hemodialysis tomorrow Epogen 85753 subQ 3 times weekly Resume home medication Blood pressure control Insulin sliding scale Fluid restrictions Renal diet IV antibiotics Renvela 1600 mg p.o. t.i.d. with meals Podiatry consult We will continue to follow Plan discussed with: Patient Dietary Evaluation Review Comments: follow Renal diet with CCHO-60 restriction Expected Outcomes/Goals: controlled DM, maintain BW PREM WAGONER MD Sep 29, 2024 09:13
--- NOTE | 2024-09-29 10:53 | DVHDS2 ---
New Physician D'charge PN Admitting Diagnosis Admitting Diagnosis PAD Discharge Diagnosis Right anterior tibial artery angioplasty, right posterior tibial artery angioplasty Operations or Procedures R anterior and posterior tibial artery angioplasty w/ vascular surgery R foot I&D x2 w/ podiatry Reason(s) For Hospitalization Surgery Hospital Course 73 M who comes to the ER for R foot pain and swelling with foul odor. He had a CT angio of the lower extremities done which showed occlusive PAD. He was admi tted to the hospital and podiatry did an initial I&D on the R foot 09/27. He was treated with IV ABx and vasculary surgery saw him who did an anterior and posterior tibial artery angioplasty. He will have a second I&D today of the R foot with podiatry and thereafter will be discharged to SNF for continued wound care and IV Invanz 1g IV daily x4 weeks as recommended by ID. His wound culture grew some gram neg rods and we will follow the culture until finalization and for now will continue with Invanz as recommended by ID. He is also ESRD on HD 3x/week and will continue his nml HD schedule once at SNF. His daughter was updated and agrees to plan of care, Patient to be dischargef to SNF today after R foot I&D with podiatry. [facility] to arrange for SNF bed and transport. Treatment Plan Discharge Condition of Discharge Good Disposition Longterm Facility Discharge Instructions Diet: Consistent carbohydrate, Cardiac 2g Na,low cholest Activity: No Restrictions, As Tolerated Medications: see med sheet Follow Up Care Follow Up/Referral: pcp [facility] surgery ID Discharge Statement: "Patient was advised to return to the ER or call 911 if any headaches, dizziness, shortness of breath, chest pain, abdominal pain, bleeding, fevers, or worsening of medical condition. Patient was counseled about treatment plan, medications, possible side effects, patientverbalized understanding. All questions were answered to the best of my ability. This discharge took greater then 30 minutes in planning, reviewing documentation, counseling the patient, and discussing with other team members." TIGIST BOX MD Sep 29, 2024 10:53
--- NOTE | 2024-09-29 11:06 | ECG ---
[facility] Test Date: 2024-09-26 Test Time: 22:47:24 Pat Name: NAV HAGER Department: Respiratoy Room: 0217 A Gender: M Stockkeeper: at : 1950 Requested By: ANN MCGUIRE Order Number: [id number] Reading MD: Yuri Castro Measurements Intervals [place] Rate: 81 P: 41 OK: 198 QRS: 87 QRSD: 119 T: -80 QT: 442 QTc: 513 Interpretive Statements Sinus rhythm Sinus pause Incomplete right bundle branch block Repol abnrm suggests ischemia, lateral leads Electronically Signed On 09-30-2024 12:38:51 PDT by Yuri Castro Please click the below link to view image of tracing.
--- NOTE | 2024-09-29 12:00 | DVHPN2 ---
Subjective 73 y.o. male with ESRD, CAD, PAD, HTN, DM, left BKA, blindness arrived to the ER c/o right foot swelling and pain. When asked when it started, patient replied: "3 days ago". However, the foot and the lower leg are red with tight pitting 2- 3+ edema, many scabs and a drainage on the medial side of the big toe. Patient is a poor historian and doesn't know his PMH. Changes from previous H/P or p: No Changes Objective Vitals Vital Signs Date Time Temp Pulse Resp B/P (MAP) Pulse Ox O2 Delivery O2 Flow Rate FiO2 09/29/24 09:54 92 12 169/87 (114) 100 09/29/24 08:30 98.3 98.3 09/28/24 20:00 Room Air* 0 21 Intake/Output Intake and Output 09/29/24 07:00 Intake Total 1100 ml Output Total 100 ml Balance 1000 ml Intake Oral 500 ml IV Total 600 ml Output Urine Total 100 ml Exam Dermatological: Skin is dry with mild erythema and some maceration around the wound site No gross deformities noted Mild non-pitting edema present bilaterally right foot medial hallux wound with purulent drainage and fluctuance Vascular: Dorsalis pedis and posterior tibial pulses are 1+ bilaterally Capillary refill is under 2 seconds Skin temperature is warm bilaterally Neurologic: Protective sensation is absent on the plantar forefoot bilaterally Monofilament testing reveals decreased sensation in multiple plantar sites Musculoskeletal: Range of motion at the ankle and MTP joints is within normal limits. Strength is 5/5 in all tested muscle groups. Gait is antalgic due to offloading of the affected limb. Medications Current Medications Medications Dose Ordered Sig/Vane Route Start Time Stop Time Status Last Admin Dose Admin Nitroglycerin 0.4 mg Q5MINP PRN SL 09/25/24 23:30 Morphine Sulfate 2 mg Q30M PRN IV 09/25/24 23:30 Furosemide 40 mg BID IV 09/26/24 10:00 Cancel Vancomycin HCl 0 ml @ 0 mls/hr UD IV 09/25/24 23:30 Piperacillin Sod/ Tazobactam Sod 50 ml @ 50 mls/hr Q8HR IV 09/26/24 06:00 Cancel Diagnostic Test (Pha) 1 strip ACHS 09/26/24 07:00 09/29/24 05:34 1 STRIP Insulin Human Regular ACHS SC 09/26/24 07:00 09/28/24 17:33 3 UNITS Dextrose 50 ml UD PRN IV 09/25/24 23:30 Hydralazine HCl 25 mg Q6HP PRN PO 09/26/24 03:15 09/26/24 03:36 25 MG Furosemide 40 mg BIDD IV 09/26/24 06:00 09/29/24 05:33 40 MG Hydralazine HCl 25 mg Q6HR PRN IV 09/26/24 06:00 09/28/24 06:21 25 MG Sevelamer HCl 1,600 mg TIDWM PO 09/26/24 18:00 09/28/24 17:31 1,600 MG Acetaminophen/ Hydrocodone Bitart 1 tab Q6HPRN PRN PO 09/27/24 21:15 09/27/24 21:33 1 TAB Morphine Sulfate 2 mg Q4HPRN PRN IV 09/27/24 21:15 09/29/24 05:33 2 MG Piperacillin Sod/ Tazobactam Sod 50 ml @ 50 mls/hr Q8HR IV 09/28/24 14:00 09/29/24 05:34 50 MLS/HR Laboratory Results Laboratory Tests 09/29/24 05:17 Chemistry Test 09/29/24 05:17 Albumin 3.6 g/dL (3.2-4.8) Calcium Level 8.2 mg/dL (8.7-10.4) L Total Protein 6.6 g/dL (5.7-8.2) LFT Test 09/29/24 05:17 Alanine Aminotransferase (ALT) < 9 U/L (7-40) Alkaline Phosphatase 193 U/L (46-116) H Aspartate Amino Transferase (AST) < 8 U/L (13-40) L Total Bilirubin 0.7 mg/dL (0.2-1.0) Microbiology Microbiology Date/Time Source Procedure Growth Status 09/27/24 13:09 Foot Right Gram Stain - Final Resulted 09/27/24 13:09 Foot Right Anaerobic Culture - Preliminary Resulted 09/27/24 13:09 Foot Right Aerobic Culture - Preliminary Resulted 09/25/24 19:38 Blood Blood Culture - Preliminary NO GROWTH AFTER 72 HOURS OF INCUBATION. Resulted Assessment/Plan Assessment/Plan ASSESSMENT: Patient is a 73 year old seen on the floor follow up s/p foot I&D PLAN: - The patients chart was reviewed, clinical findings were discussed with the patient, the etiologies of the conditions were discussed in detail, and a treatment plan was agreed to at this time, with both oral and written instructions provided. - reviewed advanced imaging - reviewed all of the labs and pathology - discussed plan is to perform a subsequent incision and drainage with possible closure - patient has been NPO since midnight - take him to the OR today - it was determined that multiple I&Ds will be necessary to save the limb - evaluted patients both feet and there is excessive dryness and onychomycosis that patient would benefit from routine foot care as an outpatient - can weightbear as tolerated in postoperative shoe All questions were answered and concerns addressed to the patient's satisfaction. The patient was given the phone number to the clinic and was told how to make contact with the clinic should any concerns or questions arise. Patient understands that if any questions or concerns arise prior to the next appointment, we should be contacted immediately. FOLLOW-UP: Continue to follow while inpatient Plan discussed with: Patient My Orders Orders - SHIRLENE JIN DPM Procedure Category Date Status Time Obtain Consent For: ORDERS 09/28/24 Transmitted 12:38 Problem List: (1) Blindness of both eyes (2) DM (diabetes mellitus) (3) ESRD on dialysis (4) Soft tissue infection of foot (5) HTN (hypertension) (6) Hyperkalemia (7) Urinary tract infection (8) Shortness of breath (9) Respiratory alkalosis (10) Generalized weakness (11) Weakness (12) Abdominal pain (13) Generalized abdominal pain (14) End stage renal disease on dialysis (15) Pleural effusion on right (16) Acute exacerbation of congestive heart failure (17) Hypertensive urgency (18) End-stage renal disease on hemodialysis (19) Pneumonia, unspecified organism (20) Elevated troponin I level (21) Elevated lactic acid level (22) Intractable abdominal pain (23) Chronic kidney disease on chronic dialysis (24) Diabetes (25) Cellulitis of right lower extremity Date of Service: Sep 29, 2024 Billing Provider: SHIRLENE JIN DPM Common Visit Codes: [id number] INP/OBS CARE(HIGH) SHIRLENE JIN DPM Sep 29, 2024 12:00
[2024-09-29] MEDS ORDERED: MIDAZOLAM HCL 2MG/2ML 2ml VIAL (1mg/ml) ONE (12:15)
[2024-09-29] MEDS ORDERED: fentaNYL CITRATE 100 MCG/2 ML VL ONE (12:15)
[2024-09-29] MEDS: BUPIVACAINE 0.5% MPF INJ 30ML SDV IJ ONE (12:22)
--- NOTE | 2024-09-29 12:33 | DVHOP2 ---
Operative Report - 2 Report Details Date: 09/29/24 Preop Diagnosis: 1. Right foot osteomyelitis 2. Right foot abscess 3. Right foot cellulitis 4. Right foot gangrene Postop Diagnosis: Same as preop Surgeon: Shirlene Jin MD Anesthesiologist: See anesthesia Anesthesia: Mac Implant: 5 x 5 Integra bilayer Consent: The patient was informed of the risks and benefits of the procedure. These include but are not limited to complications of anesthesia, postoperative infection, incomplete relief of symptoms, recurrence of symptoms, damage to blood vessels, nerves and tendons, deep venous thrombosis, pulmonary embolism and possible need for repeat surgery in the future. Complications: None Estimated Blood Loss: Minimal Fluids: See anesthesia Findings: Consistent with a diagnosis Indications for Surgery: Worsening foot wound Name of Procedure Performed 1. Right foot I&D to bone (79148) 2. Right foot placement of graft (81291) 3. Right foot rotational flap (85411) 3. Right foot delayed closure (75853) Procedure Details Procedure Details: PRE-PROCEDURE INFORMATION: In the pre-op holding area, the extremity to be operated on was clearly marked and the patient verified correct laterality of the marking. The patient was transferred to the OR table and placed in a supine position. A timeout was performed in which identification of the correct patient, procedure, location, and materials was done. The right foot and leg were prepped and draped in normal sterile fashion. DESCRIPTION OF PROCEDURE: Attention was directed to the right where area of fluctuance was noted. An incision was made over this area and was deepened through blunt dissection. The incision was deepened to the level of abscess and bone. Care was taken to the dissection to avoid any neurovascular and tendinous structures. The incision was deepened to the bone. The cortices of the bone was then removed with rongeur an all necrotic tissue. After, the area was irrigated with 3 L normal saline using cysto tubing. Deep cultures were then obtained from the wound. The area was then inspected and any areas of tracking, especially along the tendons were also drained. After the area with a appeared to be prepped and ready for graft, a 5 x 5 Integra graft was placed over the wound and covered most of the wound except for a distal aspect. The graft was then stapled to the wound. Due to the soft tissue deficit, rotational advancement flap was designed medially to laterally and elevated preserving vascularity. A delayed closure was then performed using 2-0 nylon after was deemed appropriate with no longer concern for infection. POSTOPERATIVE INFORMATION: The patient tolerated the above noted procedure and anesthesia well and was transferred to the PACU with vital signs stable, and vascular status intact with capillary refill intact to all digits. Patient will return to the floor continue IV antibiotics. Patient will need 6 weeks IV antibiotics. Patient will follow up with me 1 week after discharge. Patient to leave dressings in place. Patient can weightbear as tolerated in postop shoe. Condition Good Disposition [facility] SHIRLENE JIN DPM Sep 29, 2024 12:33
[2024-09-29] MEDS ORDERED: PROPOFOL 10 MG/ML 20 ML IV ONE (12:51)
[2024-09-29] MEDS ORDERED: DexAMETHasone SOD PHOS 10MG/1ML VIAL INJ ONE (12:51)
[2024-09-29] MEDS: LIDOCAINE 1% HCL (LOCAL ANESTH.) INJ 20ML MDV ONE (17:33)
[2024-09-30] MEDS ORDERED: SODIUM CHL 0.9% 1000 ML BAG XX ONE (07:00)
[2024-09-30] MEDS ORDERED: EPOETIN ALFA-EPBX 10,000 UNIT/1ML VIAL SC ONE (21:00)
== END 2024-09-29 20:45 | DRG 252 ==
LOC: ER 23:17 → OVERFLOW 23:27 → CENTRAL 09-26 14:20
PROVIDERS: ADMIT Student in an Organized Health Care Education/Training Program; ATTEND Student in an Organized Health Care Education/Training Program
PROC: 5A1D70Z Performance of Urinary Filtration, Intermittent, Less than 6 Hours Per Day (ICD-10-PCS; 2024-09-26)
PROC: 0QBN0ZX Excision of Right Metatarsal, Open Approach, Diagnostic (ICD-10-PCS; 2024-09-27)
PROC: 0Y9M0ZZ Drainage of Right Foot, Open Approach (ICD-10-PCS; 2024-09-27)
PROC: 5A1D70Z Performance of Urinary Filtration, Intermittent, Less than 6 Hours Per Day (ICD-10-PCS; 2024-09-28)
PROC: 047R3ZZ Dilation of Right Posterior Tibial Artery, Percutaneous Approach (ICD-10-PCS; 2024-09-29)
PROC: 0HRMXK3 Replacement of Right Foot Skin with Nonautologous Tissue Substitute, Full Thickness, External Approach (ICD-10-PCS; 2024-09-29)
PROC: 0HXMXZZ Transfer Right Foot Skin, External Approach (ICD-10-PCS; 2024-09-29)
PROC: 0Y9M0ZZ Drainage of Right Foot, Open Approach (ICD-10-PCS; 2024-09-29)
PROC: B41FYZZ Fluoroscopy of Right Lower Extremity Arteries using Other Contrast (ICD-10-PCS; 2024-09-29)
PROC: B41GYZZ Fluoroscopy of Left Lower Extremity Arteries using Other Contrast (ICD-10-PCS; 2024-09-29)
PROC: B41DYZZ Fluoroscopy of Aorta and Bilateral Lower Extremity Arteries using Other Contrast (ICD-10-PCS; 2024-09-29)
PROC: 05HB33Z Insertion of Infusion Device into Right Basilic Vein, Percutaneous Approach (ICD-10-PCS; 2024-09-29)
PROC: B54MZZA Ultrasonography of Right Upper Extremity Veins, Guidance (ICD-10-PCS; 2024-09-29)
PROC: 047P3ZZ Dilation of Right Anterior Tibial Artery, Percutaneous Approach (ICD-10-PCS; principal; 2024-09-29 12:10)
DX: E11.52 Type 2 diabetes mellitus with diabetic peripheral angiopathy with gangrene (principal); N18.6 End stage renal disease; I50.22 Chronic systolic (congestive) heart failure; L03.115 Cellulitis of right lower limb; L02.611 Cutaneous abscess of right foot; M86.8X7 Other osteomyelitis, ankle and foot; I13.2 Hypertensive heart and chronic kidney disease with heart failure and with stage 5 chronic kidney disease, or end stage renal disease; E11.69 Type 2 diabetes mellitus with other specified complication; E11.22 Type 2 diabetes mellitus with diabetic chronic kidney disease; D63.1 Anemia in chronic kidney disease; E78.5 Hyperlipidemia, unspecified; I25.10 Atherosclerotic heart disease of native coronary artery without angina pectoris; H54.3 Unqualified visual loss, both eyes; E83.39 Other disorders of phosphorus metabolism; E11.621 Type 2 diabetes mellitus with foot ulcer; L97.519 Non-pressure chronic ulcer of other part of right foot with unspecified severity; Z89.512 Acquired absence of left leg below knee; Z79.82 Long term (current) use of aspirin; Z79.899 Other long term (current) drug therapy; Z99.2 Dependence on renal dialysis; Z79.84 Long term (current) use of oral hypoglycemic drugs
CPT/HCPCS: 36415; 37228; 71045; 73630; 73706; 80048; 80053; 80202; 82306; 82565; 82962; 83036; 83605; 83735; 83880; 83970; 84100; 85025; 85610; 86850; 86900; 86901; 87040; 87070; 87075; 87077; 87186; 87205; 87340; 90935; 93005; 93306; 93926; 96365; 99152; C1769; G0378; J0330; J1100; J1815; J2003; J2250; J2543; J2704; J3490; Q9967

== ENCOUNTER 2024-10-26 12:45 | Emergency (ER) | payer OTHER, MEDICAID ==
[~2024-10-26] VITALS: Ht 152.4 cm; Wt 82.0 kg
[~2024-10-26 12:45] MED LIST changes: -AMLO1TAB21 PO
--- NOTE | 2024-10-26 13:05 | ED.PDOC ---
SOB-HPI HPI Comments 73y M who presents to the ED via EMS for chief complaint of shortness of breath. Per EMS, pt was at home with family and started to have sudden onset shortness of breath and EMS was called to the scene. EMS arrived on scene and noted pt had stable vitals with 100% 02 sat and brought to the ED. Pt in the ED, states he has been having associated cough and epigastric abdominal pain. Pt has history of ESRD on dialysis and due to symtoms today, missed dialysis appt today. 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 Pt otherwise denies any other symptoms at this time. Time Seen by MD: 13:01 Primary Care Provider: UNKNOWN Reviewed notes: Medications, Allergies Information Source: Patient, Emergency Med Personnel Mode of Arrival: EMS Brought in by: EMS Severity: Moderate Timing: Minutes, Hours Duration: Since onset Context: At Rest PE Risk Factors: Immobilization History of: None Prehospital treatment: None Modifying Factors: Nothing Associated Signs and Symptoms: Cough If cough with SOB: Non-Productive Past Medical History PAST MEDICAL HISTORY: Anemia, CHF, DM, ESRD, High Lipids, HTN Surgical History: BKA, Hernia Repair Surgical History (Other): B/L lower extremity amputation Family History Family History: Reviewed,noncontributory to illness Social History Smoker: Non-Smoker Alcohol: Denies ETOH Use Drugs: Denies Drug Use Lives In: Home, Assisted Care Constitutional: reports: weakness; denies: chills, diaphoresis, fatigue, fever, malaise, sweats, others EENTM: denies: blurred vision, double vision, ear bleeding, ear discharge, ear drainage, ear pain, ear ringing, eye pain, eye redness, hearing loss, mouth pain, mouth swelling, nasal discharge, nose bleeding, nose congestion, nose pain, photophobia, tearing, throat pain, throat swelling, voice changes, others Respiratory: reports: cough, shortness of breath; denies: hemoptysis, orthopnea, SOB at rest, SOB with excertion, stridor, wheezing, others Cardiovascular: denies: chest pain, dizzy spells, diaphoresis, Dyspnea on exertion, edema, irregular heart beat, left arm pain, lightheadedness, palpitations, PND, syncope, others Gastrointestinal: denies: abdomen distended, abdominal pain, blood streaked bowels, constipated, diarrhea, dysphagia, difficulty swallowing, hematemesis, melena, nausea, poor appetite, poor fluid intake, rectal bleeding, rectal pain, vomiting, others Genitourinary: denies: burning, dysuria, flank pain, frequency, hematuria, incontinence, penile discharge, penile sore, pain, testicle pain, testicle swelling, urgency, others Neurological: denies: dizziness, fainting, headache, left sided numbness, left sided weakness, numbness, paresthesia, pre-existing deficit, right sided numbness, right sided weakness, seizure, speech problems, tingling, tremors, weakness, others Musculoskeletal: denies: back pain, gout, joint pain, joint swelling, muscle pain, muscle stiffness, neck pain, others Integumetry: denies: bruises, change in color, change in hair/nails, dryness, laceration, lesions, lumps, rash, wounds, others Allergic/Immunocompromised: denies: Difficulty Healing, Frequent Infections, Hives, Itching, others Hematologic/Lymphatic: denies: anemia, blood clots, easy bleeding, easy bruising, swollen glands, others Endocrine: denies: excessive hunger, excessive sweating, excessive thirst, excessive urination, flushing, intolerance to cold, intolerance to heat, unexplained weight gain, unexplained weight loss, others Psychiatric: denies: anxiety, bipolar disorder, depression, hopeless, panic disorder, schizophrenia, sleepless, suicidal, others All Other Systems: Reviewed and Negative Physical Exam General Appearance: Moderate Distress HEENT: Pale Conjuntivae (L), Pale Conjuntivae (R), Pharynx Normal, TMs Normal Neck: Full Range of Motion, Non-Tender, Normal, Normal Inspection Respiratory: Chest Non-Tender, Lungs Clear, No Accessory Muscle Use, No Respiratory Distress, Normal Breath Sounds Cardiovascular: No Edema, No JVD, No Murmur, No Gallop, Normal Peripheral Pulses, Regular Rate/Rhythm Breast Exam: Deferred Gastrointestinal: Hepatomegaly, No Pulsatile Mass, Normal Bowel Sounds, Soft Genitalia: Deferred Pelvic: Deferred Rectal: Deferred Extremities: No calf tenderness, Normal capillary refill, No pedal edema, Other (The patient has a right AKA and left BKA) Musculoskeletal : Apperance: Normal Neurologic: Alert, clinical information systems director II-XII nml as Tested, No Motor Deficits, Normal Affect, Normal Mood, No Sensory Deficits Cerebellar Function: Unable to Test Reflexes: Normal Skin: Dry, Normal Color, Warm Lymphatic: No Adenopathy EKG EKG : Pulse Rate (adult): 74 [place]: Normal Cardiac Rhythm: NSR Block: RBBB Hypertrophy: None ST: Normal Was a procedure done? Was a procedure done?: No Differential Dx Differential Diagnosis: Bronchitis, CHF, COPD, Hypertension, Hyperventilation, Myocardial infarction, Pneumonia, Pulmonary Embolism, Respiratory Distress Comments ESRD on dialysis, X-Ray, Labs, Meds, VS Vital Signs Date Time Temp Pulse Resp B/P (MAP) Pulse Ox O2 Delivery O2 Flow Rate FiO2 10/26/24 15:52 164/61 10/26/24 15:36 74 18 97 Room Air* 0 21 10/26/24 15:00 74 18 164/43 (83) 97 10/26/24 14:15 98.0 75 16 151/72 (98) 100 98.0 10/26/24 14:00 72 17 161/61 (94) 98 10/26/24 13:20 98.6 75 11 148/59 (88) 99 98.6 10/26/24 13:05 74 10/26/24 12:48 74 Lab Test 10/26/24 14:38 10/26/24 13:35 Range/Units Troponin I High Sensitivity 264 *H 272 *H </=54 ng/L White Blood Count 7.9 4.4-10.8 10^3/uL Red Blood Count 3.35 L 4.5-5.90 10^6/uL Hemoglobin 10.4 L 13.5-17.5 g/dL Hematocrit 31.2 L 41.0-53.0 % Mean Corpuscular Volume 93.2 80.0-100.0 fL Mean Corpuscular Hemoglobin 31.2 28.0-32.0 pg Mean Corpuscular Hemoglobin Concent 33.5 32.0-36.0 g/dL Red Cell Distribution Width 18.1 H 11.8-14.3 % Platelet Count 288 140-450 10^3/uL Mean Platelet Volume 7.3 6.9-10.8 fL Neutrophils (%) (Auto) 73.5 37.0-80.0 % Lymphocytes (%) (Auto) 11.7 10.0-50.0 % Monocytes (%) (Auto) 13.2 H 0.0-12.0 % Eosinophils (%) (Auto) 0.6 0.0-7.0 % Basophils (%) (Auto) 1.0 0.0-2.0 % Neutrophils # (Auto) 5.8 1.6-8.6 10 ^3/uL Lymphocytes # (Auto) 0.9 0.4-5.4 10 ^3/uL Monocytes # (Auto) 1.0 0-1.3 10 ^3/uL Eosinophils # (Auto) 0 0-0.8 10 ^3/uL Basophils # (Auto) 0.1 0-0.2 10 ^3/uL Nucleated Red Blood Cells 0.0 % Sodium Level 139 136-145 mmol/L Potassium Level 5.0 3.5-5.1 mmol/L Chloride Level 99 98-107 mmol/L Carbon Dioxide Level 30 20-31 mmol/L Anion Gap 10 5-15 Blood Urea Nitrogen 43 H 9-23 mg/dL Creatinine 5.06 H 0.700-1.30 mg/dL Glomerular Filtration Rate Calc 11 >90 mL/min BUN/Creatinine Ratio 8.5 L 10.0-20.0 Serum Glucose 97 74-106 mg/dL Calcium Level 8.3 L 8.7-10.4 mg/dL Ammonia < 10 L 11-32 umol/L B-Type Natriuretic Peptide > 5000.00 0-100 pg/mL Current Medications Medications (Trade) Dose Ordered Sig/Vane Route Start Time Stop Time Status Last Admin Furosemide (Lasix Injection) 40 mg ONCE ONCE IV 10/26/24 15:30 10/26/24 15:31 DC 10/26/24 15:52 IV Hep-Lock was established The patient was given Lasix 40 mg IV push The patient's BUN is 43 and the creatinine is 5.06 The ammonia level is negative The BNP is greater than 5000 The CBC shows anemia with a hemoglobin of 10.4 and hematocrit of 31.2 The patient's troponin level went from 272-264 We did call the [facility] hospitalist They have evaluated the patient and it seems that they are going to send the patient to hospice The patient will also be sent to dialysis so he can be dialyzed as an outpatient The management will be taken over by the [facility] physician at this point Images Reviewed?: Images reviewed and evaluated by me Time of 1ST Reevaluation: 13:35 Reevaluation 1ST: Unchanged Patient Education/Counseling: Diagnosis, Treatment, Prognosis Family Education/Counseling: No Family Present SEPSIS Sepsis Screen Physician Orders Chest Portable (10/26/24 12:55) Heplock Iv (10/26/24 12:55) Passementerie Worker (10/26/24 12:55) Blood Pressure (10/26/24 12:55) Pulse Oximetry (10/26/24 12:55) Troponin-I Hs (10/26/24 15:55) Electrocardigram (10/26/24 13:55) Electrocardigram (10/26/24 15:55) Vital Signs Date Time Temp Pulse Resp B/P (MAP) Pulse Ox O2 Delivery O2 Flow Rate FiO2 10/26/24 15:52 164/61 10/26/24 15:36 74 18 97 Room Air* 0 21 10/26/24 15:00 74 18 164/43 (83) 97 10/26/24 14:15 98.0 75 16 151/72 (98) 100 98.0 10/26/24 14:00 72 17 161/61 (94) 98 10/26/24 13:20 98.6 75 11 148/59 (88) 99 98.6 10/26/24 13:05 74 10/26/24 12:48 74 Laboratory Tests Test 10/26/24 13:35 White Blood Count 7.9 10^3/uL (4.4-10.8) Medications Medications Dose Ordered Sig/Vane Route Start Time Stop Time Status Last Admin Dose Admin Furosemide 40 mg ONCE ONCE IV 10/26/24 15:30 10/26/24 15:31 DC 10/26/24 15:52 Departure 1 Departure Time of Disposition: 16:22 Impression: Primary Impression: Acute exacerbation of congestive heart failure Qualified Codes: I50.43 - Acute on chronic combined systolic (congestive) and diastolic (congestive) heart failure Additional Impressions: ESRD on dialysis Elevated troponin I level Disposition: ADMITTED INPATIENT Admit to: Tele Condition: Fair Critical Care Note Critical Care Time?: Yes (45 min-critical care time only) Stability Stability form required: Yes Unstable for transfer: Telemetry monitoring (Telemetry monitoring required), ED Physician Assesment (Clinical assesment) Heart Score Heart Score: Heart Score Response (Comments) Value History Slightly Suspicious 0 EKG Normal 0 Age >65 2 Risk Factors >3 or Hx ASHD 2 Troponin Normal limit 0 Total 4 I personally scribed for VIKRAM SANDERS MD ([email or web address]) on 10/26/24 at 13:05. Electronically submitted by Rin Helm ([email or web address]). VIKRAM SANDERS MD Oct 26, 2024 13:05
--- NOTE | 2024-10-26 13:23 | ECG ---
[facility] Test Date: 2024-10-26 Test Time: 12:48:03 Pat Name: NAV HAGER Department: ED Room: Gender: M Licensed Midwife: gp : 1950 Requested By: VIKRAM SANDERS Order Number: [id number] Reading MD: Yuri Castro Measurements Intervals [place] Rate: 74 P: 49 AK: 190 QRS: 109 QRSD: 131 T: 206 QT: 434 QTc: 482 Interpretive Statements Sinus rhythm RBBB and LPFB Abnormal T, consider ischemia, lateral leads Electronically Signed On 10-28-2024 10:22:23 PDT by Yuri Castro Please click the below link to view image of tracing.
[2024-10-26 13:46] LABS: Hematocrit 31.2 % (41.0-53.0); Hemoglobin 10.4 g/dL (13.5-17.5); Mean Corpuscular Hemoglobin 31.2 pg (28.0-32.0); Mean Corpuscular Volume 93.2 fL (80.0-100.0); Nucleated Red Blood Cells % 0.0 %
--- NOTE | 2024-10-26 13:48 | DVH ---
CHEST RADIOGRAPH Indication: sob Technique: Single frontal view of the chest was obtained Comparison: XY CHEST XRAY 1 VIEW on DOS: 09/27/24, XY CHEST PORTABLE on DOS: 07/23/24, XY CHEST PORTABLE on DOS: 03/04/24, XY CHEST PORTABLE on DOS: 09/28/23 FINDINGS: Lines and Tubes: None Lungs: No focal consolidation. Pleura: No effusion. No pneumothorax. Cardiomediastinal contours: Cardiomegaly Bones: No acute osseous abnormality. IMPRESSION: Cardiomegal with CHF
[2024-10-26 13:56] LABS: Chloride 99 mmol/L (98-107); Potassium 5.0 mmol/L (3.5-5.1); Sodium 139 mmol/L (136-145)
[2024-10-26 13:57] LABS: Anion Gap 10 (5-15); Carbon Dioxide 30 mmol/L (20-31)
[2024-10-26 13:58] LABS: Calcium 8.3 mg/dL (8.7-10.4)
[2024-10-26 14:02] LABS: BUN/Creatinine Ratio 8.5 (10.0-20.0); Blood Urea Nitrogen 43 mg/dL (9-23); Glucose 97 mg/dL (74-106)
[2024-10-26 15:36] VITALS: PULSE 74; RESP 18; O2SAT 97
[2024-10-26] MEDS: FUROSEMIDE 40 MG/4 ML VIAL IV ONE (15:52)
[2024-10-26] MEDS: SODIUM CHL 0.9% 1000 ML BAG XX ONE (18:30)
--- NOTE | 2024-10-26 18:30 | DVHINCON2 ---
Date of service: Oct 26, [address] Oliver Reason for Consultation ESRD fluid overload History of Present Illness 73-year-old male with past medical history of end-stage renal disease on hemodialysis, recently hospitalized at [facility] for sepsis secondary to gangrene status post amputation of the lower extremity. Patient presents to the hospital now complaining of shortness of breath. Nephrology consulted due to fluid overload and hemodialysis treatment. Labs and vitals were reviewed and case discussed with primary medical attending given the clinical volume overload and elevated potassium we will initiate hemodialysis Allergies: Coded Allergies: NO KNOWN ALLERGIES (Unverified , 09/28/23) Home Meds Reported Medications Nifedipine (Nifedipine Er) 30 Mg Tab, 1 TAB PO DAILY for 90 Days, #90 09/26/24 Losartan Potassium (Losartan Potassium) 50 Mg Tab, 1 TAB PO EVERY 2 DAYS for 90 Days, #45 09/26/24 Dorzolamide-Timolol (Dorzolamide Hcl/Timolol M) 1 Ml Lj, 1 ML OP UD for 90 Days, #10 04/05/24 Latanoprost (Xalatan) 0.005 % Lj, 0.005 % OP UD for 25 Days, #2.5 04/05/24 Brimonidine Tartrate-Timolol M (Brimonidine Tartrate/Paul 0.2-0.5 %) 1 Lj Lj, 1 LJ OP UD for 18 Days, #5 04/05/24 Atorvastatin Calcium (Lipitor) 20 Mg Tab, 1 TAB PO DAILY, #90 TAB 1 Refill 09/29/23 Acetaminophen (Acetaminophen) 325 Mg Tab, 650 MG PO TIDP PRN for PAIN SCALE 1 THRU 6 for 30 Days, MG 0 Refills 09/29/23 Calcium Acetate (Phosphate Bin (Calcium Acetate) 667 Mg Cap, 667 MG PO TIDWM for 30 Days, MG 09/29/23 Aspirin (Aspirin Low Dose) 81 Mg Tab, 1 TAB PO DAILY for 60 Days, #60 09/29/23 Family History: Patient reports no known family medical history. Review of Systems Shortness of breath H&P Exam Vital Signs/I&O Vital Sign Date Time Temp Pulse Resp B/P (MAP) Pulse Ox O2 Delivery O2 Flow Rate FiO2 10/26/24 15:52 164/61 10/26/24 15:36 74 18 97 Room Air* 0 21 10/26/24 14:15 98.0 98.0 Physical Exam Frail elderly male Not in overt distress Soft Left arm AV fistula Bilateral BKA Labs/Diagnostic Data Labs/Diagnostic Data Laboratory Tests Test 10/26/24 16:32 10/26/24 14:38 10/26/24 13:35 Range/Units Troponin I High Sensitivity 251 *H 264 *H 272 *H </=54 ng/L White Blood Count 7.9 4.4-10.8 10^3/uL Red Blood Count 3.35 L 4.5-5.90 10^6/uL Hemoglobin 10.4 L 13.5-17.5 g/dL Hematocrit 31.2 L 41.0-53.0 % Mean Corpuscular Volume 93.2 80.0-100.0 fL Mean Corpuscular Hemoglobin 31.2 28.0-32.0 pg Mean Corpuscular Hemoglobin Concent 33.5 32.0-36.0 g/dL Red Cell Distribution Width 18.1 H 11.8-14.3 % Platelet Count 288 140-450 10^3/uL Mean Platelet Volume 7.3 6.9-10.8 fL Neutrophils (%) (Auto) 73.5 37.0-80.0 % Lymphocytes (%) (Auto) 11.7 10.0-50.0 % Monocytes (%) (Auto) 13.2 H 0.0-12.0 % Eosinophils (%) (Auto) 0.6 0.0-7.0 % Basophils (%) (Auto) 1.0 0.0-2.0 % Neutrophils # (Auto) 5.8 1.6-8.6 10 ^3/uL Lymphocytes # (Auto) 0.9 0.4-5.4 10 ^3/uL Monocytes # (Auto) 1.0 0-1.3 10 ^3/uL Eosinophils # (Auto) 0 0-0.8 10 ^3/uL Basophils # (Auto) 0.1 0-0.2 10 ^3/uL Nucleated Red Blood Cells 0.0 % Sodium Level 139 136-145 mmol/L Potassium Level 5.0 3.5-5.1 mmol/L Chloride Level 99 98-107 mmol/L Carbon Dioxide Level 30 20-31 mmol/L Anion Gap 10 5-15 Blood Urea Nitrogen 43 H 9-23 mg/dL Creatinine 5.06 H 0.700-1.30 mg/dL Glomerular Filtration Rate Calc 11 >90 mL/min BUN/Creatinine Ratio 8.5 L 10.0-20.0 Serum Glucose 97 74-106 mg/dL Calcium Level 8.3 L 8.7-10.4 mg/dL Ammonia < 10 L 11-32 umol/L B-Type Natriuretic Peptide > 5000.00 0-100 pg/mL Assessment 73-year-old male with past medical history of severe approval follow up vascular disease status post recent below-knee amputation presents to the hospital complaining of fluid overload. Nephrology consulted for scheduled hemodialysis treatment End-stage renal disease Hypertension CHF BKA Hyperkalemia Hemodialysis treatment fluid removal as tolerated Avoid hypotension Evaluation and disposition as per primary medical physician after stable hemodialysis treatment care time 70mins Plan discussed with: Patient, Spouse WILLIAM MENDOZA MD Oct 26, 2024 18:30
[2024-10-26 20:00] VITALS: PULSE 80; RESP 18; O2SAT 98
--- NOTE | 2024-10-26 23:28 | DVHDS2 ---
Discharge Summary Date of Admission Date of Discharge: Oct 26, 2024 Labs/Diagnostic Data: Laboratory Results Test 10/26/24 16:32 10/26/24 13:35 Troponin I High Sensitivity 251 ng/L (</=54) White Blood Count 7.9 10^3/uL (4.4-10.8) Red Blood Count 3.35 10^6/uL (4.5-5.90) Hemoglobin 10.4 g/dL (13.5-17.5) Hematocrit 31.2 % (41.0-53.0) Mean Corpuscular Volume 93.2 fL (80.0-100.0) Mean Corpuscular Hemoglobin 31.2 pg (28.0-32.0) Mean Corpuscular Hemoglobin Concent 33.5 g/dL (32.0-36.0) Red Cell Distribution Width 18.1 % (11.8-14.3) Platelet Count 288 10^3/uL (140-450) Mean Platelet Volume 7.3 fL (6.9-10.8) Neutrophils (%) (Auto) 73.5 % (37.0-80.0) Lymphocytes (%) (Auto) 11.7 % (10.0-50.0) Monocytes (%) (Auto) 13.2 % (0.0-12.0) Eosinophils (%) (Auto) 0.6 % (0.0-7.0) Basophils (%) (Auto) 1.0 % (0.0-2.0) Neutrophils # (Auto) 5.8 10 ^3/uL (1.6-8.6) Lymphocytes # (Auto) 0.9 10 ^3/uL (0.4-5.4) Monocytes # (Auto) 1.0 10 ^3/uL (0-1.3) Eosinophils # (Auto) 0 10 ^3/uL (0-0.8) Basophils # (Auto) 0.1 10 ^3/uL (0-0.2) Nucleated Red Blood Cells 0.0 % Sodium Level 139 mmol/L (136-145) Potassium Level 5.0 mmol/L (3.5-5.1) Chloride Level 99 mmol/L (98-107) Carbon Dioxide Level 30 mmol/L (20-31) Anion Gap 10 (5-15) Blood Urea Nitrogen 43 mg/dL (9-23) Creatinine 5.06 mg/dL (0.700-1.30) Glomerular Filtration Rate Calc 11 mL/min (>90) BUN/Creatinine Ratio 8.5 (10.0-20.0) Serum Glucose 97 mg/dL (74-106) Calcium Level 8.3 mg/dL (8.7-10.4) Ammonia < 10 umol/L (11-32) B-Type Natriuretic Peptide > 5000.00 pg/mL (0-100) Other Laboratory Tests 10/26/24 13:35 Final Diagnosis/Problems List Missed Dialysis Discharge Disposition: Home Discharge Instruct/Medications Diet: Renal Activity: No Restrictions, As Tolerated Follow Up/Referral: Follow up with nephrology for HD. Medications: No new medications. Scheduled Aspirin (Aspirin Low Dose), 1 TAB PO DAILY, (Reported) Atorvastatin Calcium (Lipitor), 1 TAB PO DAILY, (Reported) Brimonidine Tartrate-Timolol M (Brimonidine Tartrate/Paul 0.2-0.5 %), 1 LJ OP UD, (Reported) Calcium Acetate (Phosphate Bin (Calcium Acetate), 667 MG PO TIDWM, (Reported) Dorzolamide-Timolol (Dorzolamide Hcl/Timolol M), 1 ML OP UD, (Reported) Latanoprost (Xalatan), 0.005 % OP UD, (Reported) Losartan Potassium (Losartan Potassium), 1 TAB PO EVERY 2 DAYS, (Reported) Nifedipine (Nifedipine Er), 1 TAB PO DAILY, (Reported) Scheduled PRN Acetaminophen (Acetaminophen), 650 MG PO TIDP PRN for PAIN SCALE 1 THRU 6, (Reported) Discharge Statement: "Patient was advised to return to the ER or call 911 if any headaches, dizziness, shortness of breath, chest pain, abdominal pain, bleeding, fevers, or worsening of medical condition. Patient was counseled about treatment plan, medications, possible side effects, patientverbalized understanding. All questions were answered to the best of my ability. This discharge took greater then 30 minutes in planning, reviewing documentation, counseling the patient, and discussing with other team members." ASSESSMENT ASSESSMENT Assessment Missed Dialysis FER ANDERSON DO Oct 26, 2024 23:28
[2024-10-27 00:14] VITALS: BP 182/78; PULSE 83; RESP 24; TEMP 97.8; O2SAT 98
[2024-10-28 10:52] LABS: Hepatitis B Surface Antigen Negative (Negative); Hepatitis C Antibody Negative (Negative)
== END 2024-10-27 00:18 | disposition home or self-care (01) ==
LOC: ER 12:45 → EDBD 12:45 → ER 10-27 00:18
DX: I13.2 Hypertensive heart and chronic kidney disease with heart failure and with stage 5 chronic kidney disease, or end stage renal disease (principal); E11.22 Type 2 diabetes mellitus with diabetic chronic kidney disease; N18.6 End stage renal disease; I50.9 Heart failure, unspecified; E87.5 Hyperkalemia; D64.9 Anemia, unspecified; Z79.82 Long term (current) use of aspirin; Z79.899 Other long term (current) drug therapy; Z89.611 Acquired absence of right leg above knee; Z91.158 Patient's noncompliance with renal dialysis for other reason; Z98.890 Other specified postprocedural states; Z99.2 Dependence on renal dialysis
CPT/HCPCS: 36415; 71045; 80048; 80074; 82140; 82947; 83880; 84484; 85025; 93005; 96374; 99291; J1938; 82962; 90935

== ENCOUNTER 2024-10-31 19:09 | Emergency (ER) | payer OTHER, MEDICAID ==
[~2024-10-31] VITALS: Ht 127 cm; Wt 54.4 kg
[2024-10-31 19:52] LABS: Hematocrit 29.7 % (41.0-53.0); Hemoglobin 10.1 g/dL (13.5-17.5); Mean Corpuscular Hemoglobin 32.0 pg (28.0-32.0); Mean Corpuscular Volume 94.3 fL (80.0-100.0); Nucleated Red Blood Cells % 0.0 %
[2024-10-31 20:04] LABS: Chloride 102 mmol/L (98-107); Potassium 3.6 mmol/L (3.5-5.1); Sodium 142 mmol/L (136-145)
[2024-10-31 20:05] LABS: Anion Gap 10 (5-15); Carbon Dioxide 30 mmol/L (20-31)
[2024-10-31 20:07] LABS: Calcium 8.0 mg/dL (8.7-10.4)
[2024-10-31 20:11] LABS: BUN/Creatinine Ratio 6.2 (10.0-20.0); Blood Urea Nitrogen 20 mg/dL (9-23)
--- NOTE | 2024-10-31 20:11 | ED.PDOC ---
History of Present Illness HPI Comments 73 y/o M is BIBA from dialysis center for c/c chest pain, shortness of breath, and cough. Per EMS report, patient was 2 hours in out of his normal scheduled 3 hour dialysis session when he began endorsing of symptoms. Significant history of CHF, DM type 2 with neuropathy, ESRD with HD on Thursday, Thursday, and Thursday, HTN, dementia - A&O x2 at baseline, home oxygen use, right AKA, left BKA, and a SNF hospice resident. Pain is nonradiating, substernal, sharp in quality, an 8/10 in severity, and has been ongoing, intermittently, alongside with other aforementioned symptoms for the past 2-3x days. Staff at dialysis center reported on giving the patient 3x NTG prior to EMS arrival. Vitals were stable and within normal limits, with exception of being hypertensive in the 160's/120's range. Blood glucose of 69; improved to 140 following D10 administration en route. At time of assessment, pain is, now, a 5-6/10 in severity. Patient denies having any nausea, vomiting, fever, chills, or further associated symptoms. Chief Complaint: Chest Pain Time Seen by MD: 19:20 Primary Care Provider: UNKNOWN Reviewed Notes: Nurses Notes, Art Objects Supervisor Notes, Medications, Allergies Allergies: Coded Allergies: NO KNOWN ALLERGIES (Unverified , 09/28/23) Home Meds Reported Medications Nifedipine (Nifedipine Er) 30 Mg Tab, 1 TAB PO DAILY for 90 Days, #90 09/26/24 Losartan Potassium (Losartan Potassium) 50 Mg Tab, 1 TAB PO EVERY 2 DAYS for 90 Days, #45 09/26/24 Dorzolamide-Timolol (Dorzolamide Hcl/Timolol M) 1 Ml Lj, 1 ML OP UD for 90 Days, #10 04/05/24 Latanoprost (Xalatan) 0.005 % Lj, 0.005 % OP UD for 25 Days, #2.5 04/05/24 Brimonidine Tartrate-Timolol M (Brimonidine Tartrate/Paul 0.2-0.5 %) 1 Lj Lj, 1 LJ OP UD for 18 Days, #5 04/05/24 Atorvastatin Calcium (Lipitor) 20 Mg Tab, 1 TAB PO DAILY, #90 TAB 1 Refill 6/4/24 Acetaminophen (Acetaminophen) 325 Mg Tab, 650 MG PO TIDP PRN for PAIN SCALE 1 THRU 6 for 30 Days, MG 0 Refills 09/29/23 Calcium Acetate (Phosphate Bin (Calcium Acetate) 667 Mg Cap, 667 MG PO TIDWM for 30 Days, MG 09/29/23 Aspirin (Aspirin Low Dose) 81 Mg Tab, 1 TAB PO DAILY for 60 Days, #60 09/29/23 Information Source: Patient, Emergency Med Personnel Mode of Arrival: EMS Severity: Moderate Timing: Days Duration: Intermittent Prehospital treatment: 12 Lead EKG, Accucheck, Flyer Maker Review of Systems: REVIEW OF SYSTEMS: No fever, no chills, or fatigue HEENT: No sore throat, no earache, no congestion, no neck pain. Cardiac: Chest pain. No palpitations. Lungs: Shortness of breath, cough. GI: No nausea, no vomiting, no diarrhea, no constipation, no abdominal pain : No dysuria, frequency, or urgency. No hematuria. Musculoskeletal: No joint pain , no joint swelling, no extremity edema. Skin: No rash, no itching. Neuro: No headache, no dizziness, no weakness Vital Signs Vital Signs Date Time Temp Pulse Resp B/P (MAP) Pulse Ox O2 Delivery O2 Flow Rate FiO2 11/01/24 05:00 98.1 69 13 177/68 (104) 91 98.1 10/31/24 23:00 Room Air* 0 21 Physical Exam General: A&Ox2, appears lethargic. No acute distress. Skin: Skin in warm, dry and intact. Appropriate color for ethnicity. HEENT: The head is normocephalic and atraumatic. Conjunctivae are clear without exudates or hemorrhage. Sclera is non-icteric. EOM are intact. No signs of nystagmus. Eyelids are normal in appearance without swelling or lesions. Oral mucosa is pink and moist Neck: The neck is supple with normal range of motion. No JVD. Cardiac: Heart rate and rhythm are normal. No murmurs, gallops, or rubs are auscultated. Respiratory: No signs of respiratory distress. Lung sounds are clear in all lobes bilaterally with the exception of rales, bilaterally. Otherwise, no rhonchi or wheezes. Abdominal: Generalized abdominal tenderness, otherwise, abdomen is soft, without distention, guarding or rigidity. Bowel sounds are present and no rmoactive in all four quadrants. Extremities: Upper and lower extremities are atraumatic in appearance without deformity or edema. Neurological: The patient is in A&Ox2. Speech is clear. There is no facial asymmetry. Psychiatric: Appropriate mood and affect. Good judgement and insight. Past Medical History PAST MEDICAL HISTORY: Anemia, CHF, Dementia (A&Ox2 at baseline ), DM (With neuropathy), ESRD (With hemodialysis on Thursday, Thursday, and Thursday), High Lipids, HTN Surgical History: AKA (Right ), BKA (Left), Hernia Repair Surgical History (Other): Right anterior tibial artery angioplasty, right posterior tibial artery angioplasty Family History Family History: Reviewed,noncontributory to illness Social History Smoker: Non-Smoker Alcohol: Denies ETOH Use Drugs: Denies Drug Use Lives In: Custodial Was a procedure done? Was a procedure done?: No EKG EKG #1: Pulse Rate (adult): 72 [place]: Normal Cardiac Rhythm: ST, PAC's Block: RBBB Hypertrophy: None ST: Normal Comments QTC of 519 EKG #2: Pulse Rate (adult): 80 [place]: Normal Cardiac Rhythm: NSR, PAC's Block: RBBB Hypertrophy: None ST: Normal Comments QTC 540 Differential Dx Considerations may include: Differential diagnoses considered include acute ischemic coronary syndrome, aortic dissection, cardiac tamponade, mediastinitis, pulmonary embolus, pneumothorax, tension pneumothorax, esophageal rupture, coronary artery vasospas m, myocarditis, pericarditis, pneumonia, pulmonary edema, esophageal tear, pancreatitis, aortic stenosis, dilated cardiomyopathy, hypertrophic cardiomyopathy, mitral valve prolapse, malignancy, pleuritis, pneumomediastinum, primary pulmonary hypertension, cholecystitis, esophageal spasm, esophagus, gastritis, GERD, peptic ulcer disease, costochondritis, fibromyalgia, rib fracture, herpes zoster, radicular syndromes, thoracic outlet syndrome, somatization. X-Ray, Labs, Meds, VS Vital Signs Date Time Temp Pulse Resp B/P (MAP) Pulse Ox O2 Delivery O2 Flow Rate FiO2 11/01/24 05:00 98.1 69 13 177/68 (104) 91 98.1 11/01/24 03:00 97.6 68 16 168/60 (96) 100 97.6 11/01/24 01:53 190/70 11/01/24 01:30 77 21 199/73 (115) 99 11/01/24 00:34 220/132 10/31/24 23:59 80 10/31/24 23:54 80 10/31/24 23:00 97.5 83 18 215/94 (134) 97 97.5 10/31/24 23:00 83 18 97 Room Air* 0 21 10/31/24 20:36 80 10/31/24 20:11 72 10/31/24 19:28 98.9 75 16 160/120 (133) 100 98.9 10/31/24 19:19 72 Lab Test 10/31/24 23:19 10/31/24 19:33 Range/Units Troponin I High Sensitivity 105 *H 94 *H </=54 ng/L White Blood Count 7.1 4.4-10.8 10^3/uL Red Blood Count 3.15 L 4.5-5.90 10^6/uL Hemoglobin 10.1 L 13.5-17.5 g/dL Hematocrit 29.7 L 41.0-53.0 % Mean Corpuscular Volume 94.3 80.0-100.0 fL Mean Corpuscular Hemoglobin 32.0 28.0-32.0 pg Mean Corpuscular Hemoglobin Concent 33.9 32.0-36.0 g/dL Red Cell Distribution Width 19.4 H 11.8-14.3 % Platelet Count 258 140-450 10^3/uL Mean Platelet Volume 6.9 6.9-10.8 fL Neutrophils (%) (Auto) 77.9 37.0-80.0 % Lymphocytes (%) (Auto) 11.9 10.0-50.0 % Monocytes (%) (Auto) 7.7 0.0-12.0 % Eosinophils (%) (Auto) 1.5 0.0-7.0 % Basophils (%) (Auto) 1.0 0.0-2.0 % Neutrophils # (Auto) 5.6 1.6-8.6 10 ^3/uL Lymphocytes # (Auto) 0.8 0.4-5.4 10 ^3/uL Monocytes # (Auto) 0.5 0-1.3 10 ^3/uL Eosinophils # (Auto) 0.1 0-0.8 10 ^3/uL Basophils # (Auto) 0.1 0-0.2 10 ^3/uL Nucleated Red Blood Cells 0.0 % Sodium Level 142 136-145 mmol/L Potassium Level 3.6 3.5-5.1 mmol/L Chloride Level 102 98-107 mmol/L Carbon Dioxide Level 30 20-31 mmol/L Anion Gap 10 5-15 Blood Urea Nitrogen 20 9-23 mg/dL Creatinine 3.25 H 0.700-1.30 mg/dL Glomerular Filtration Rate Calc 19 >90 mL/min BUN/Creatinine Ratio 6.2 L 10.0-20.0 Serum Glucose 120 H 74-106 mg/dL Lactic Acid Level 1.0 0.4-2.0 mmol/L Calcium Level 8.0 L 8.7-10.4 mg/dL B-Type Natriuretic Peptide 3133.53 0-100 pg/mL Current Medications Medications (Trade) Dose Ordered Sig/Vane Route Start Time Stop Time Status Last Admin Clonidine HCl (Catapres Tablet) 0.2 mg ONCE ONCE PO 11/01/24 00:15 11/01/24 00:16 DC 11/01/24 00:34 Time of 1ST Reevaluation: 20:50 Reevaluation 1ST: Unchanged Patient Education/Counseling: Other (Patient has dementia and is A&Ox2 at baseline ) Family Education/Counseling: Other (Need for admission ) SEPSIS Sepsis Screen Physician Orders Chest Xray 1 View (10/31/24 19:24) Vital Signs Date Time Temp Pulse Resp B/P (MAP) Pulse Ox O2 Delivery O2 Flow Rate FiO2 11/01/24 05:00 98.1 69 13 177/68 (104) 91 98.1 11/01/24 03:00 97.6 68 16 168/60 (96) 100 97.6 11/01/24 01:53 190/70 11/01/24 01:30 77 21 199/73 (115) 99 11/01/24 00:34 220/132 10/31/24 23:59 80 10/31/24 23:54 80 10/31/24 23:00 97.5 83 18 215/94 (134) 97 97.5 10/31/24 23:00 83 18 97 Room Air* 0 21 10/31/24 20:36 80 10/31/24 20:11 72 10/31/24 19:28 98.9 75 16 160/120 (133) 100 98.9 10/31/24 19:19 72 Laboratory Tests Test 10/31/24 19:33 Lactic Acid Level 1.0 mmol/L (0.4-2.0) White Blood Count 7.1 10^3/uL (4.4-10.8) Departure 1 Departure Time of Disposition: 23:09 Impression: Primary Impression: Chest pain Additional Impression: Missed dialysis Disposition: HOME / SELF CARE / HOMELESS Condition: Stable Additional Instructions: ED DISCHARGE INSTRUCTIONS Instructions: Please read all instructions provided in this packet carefully. Although you have been discharged from the Emergency Department, this does not mean that you have a "clean bill of health". No definitive diagnosis for your symptoms has been made today. It is possible that you are in the process of developing a serious illness. This is why you must return to the ED without fail if any new or worsening symptoms (especially if your symptoms include chest pain, trouble breathing, abdominal pain, fever, headache, confusion, trouble seeing, or trouble walking) It is also very important that you see a primary care doctor within the next 3-5 days to follow up. If you are unable to get an appointment, return to the ED for re-evaluation. You will be contacted by [facility] to arrange for dialysis tomorrow 11/01/24. Comments 73-year-old male who presents to the emergency department with 2-3 days of chest pain and shortness of breath. He has remained Troponin mildly elevated at 94 nanograms/liter in the setting of end-stage renal disease, improved from 5 days ago. Discussed with Dr. Hernandez with request for admission. She is declining admission at this time and states she will arrange for patient to complete dialysis tomorrow. Patient felt stable for discharge home to follow up as an outpatient. Extensive evaluation was performed in attempt to identify or rule out: (See differential diagnosis section) The following tests were ordered, and results were reviewed by me and discussed with patient and his daughter: (See diagnostic results section) The following test were independently interpreted by me: N/A I reviewed and agreed with the following test results read by other providers: Chest x-ray I reviewed the following notes from the pt's past medical encounters: April 04, 2024, July 24, 2024, September 25, 2024, and October 26, 2024 encounters for left- sided abdominal pain, acute exacerbation of CHF, right foot cellulitis, and acute exacerbation CHF Additional information was gathered from interviewing the following independent historians: EMS, family Decision regarding hospitalization or escalation of hospital level of care: Risks and benefits of admission for further treatment of patient's condition was considered however due to patient's stable condition patient will be discharged to follow up closely or return to care for worsening of condition or inability to follow up. Critical Care Note Critical Care Time?: No Stability Stability form required: No Heart Score Heart Score: Heart Score Response (Comments) Value History Moderate Suspicious 1 EKG Normal 0 Age >65 2 Risk Factors >3 or Hx ASHD 2 Troponin 1-2 x's Normal limit 1 Total 6 I personally scribed for FELIBERTO SPARKS MD ([email or web address]) on 10/31/24 at 20:11. Electronically submitted by Albin Jessica ([email or web address]). I personally scribed for FELIBERTO SPARKS MD ([email or web address]) on 10/31/24 at 23:54. Electronically submitted by Albin Jessica ([email or web address]). FELIBERTO SPARKS MD Oct 31, 2024 20:11
[2024-10-31 20:12] LABS: Glucose 120 mg/dL (74-106)
--- NOTE | 2024-10-31 21:19 | DVH ---
CHEST RADIOGRAPH Indication: cp Technique: Single frontal view of the chest was obtained COMPARISON: XY CHEST PORTABLE on DOS: 10/26/24, XY CHEST XRAY 1 VIEW on DOS: 09/27/24, XY CHEST PORTABLE on DOS: 07/23/24, XY CHEST PORTABLE on DOS: 03/04/24, XY CHEST PORTABLE on DOS: 09/28/23 FINDINGS: Lines and Tubes: None Lungs: Clear Pleura: No effusion. No pneumothorax. Cardiomediastinal contours: Borderline cardiomegaly. Atherosclerotic vascular calcifications. Bones: Unremarkable IMPRESSION: 1. No acute disease. Borderline cardiomegaly.
[2024-10-31 23:00] VITALS: PULSE 83; RESP 18; O2SAT 97
[2024-11-01 05:00] VITALS: BP 177/68; PULSE 69; RESP 13; TEMP 98.1; O2SAT 91
--- NOTE | 2024-11-01 06:35 | ECG ---
[facility] Test Date: 2024-10-31 Test Time: 19:19:45 Pat Name: NAV HAGER Department: ED Room: Gender: M Leather Roller: : 1950 Requested By: FELIBERTO SPARKS Order Number: [id number] Reading MD: Yuri Castro Measurements Intervals [place] Rate: 72 P: 71 [place]: 53 QRS: 135 QRSD: 140 T: -38 QT: 474 QTc: 519 Interpretive Statements Sinus rhythm Atrial premature complex Short [place] interval RBBB and LPFB Electronically Signed On 11-03-2024 18:59:04 PDT by Yuri Castro Please click the below link to view image of tracing.
--- NOTE | 2024-11-03 12:05 | ECG ---
[facility] Test Date: 2024-10-31 Test Time: 20:36:35 Pat Name: NAV HAGER Department: ED Room: Gender: M Crm Solution Architect: MALA : 1950 Requested By: FELIBERTO SPARKS Order Number: [id number] Reading MD: Yuri Castro Measurements Intervals [place] Rate: 80 P: 35 SC: 175 QRS: 173 QRSD: 133 T: -59 QT: 468 QTc: 540 Interpretive Statements Sinus rhythm Atrial premature complex Right bundle branch block Nonspecific T abnormalities, lateral leads Baseline wander in lead(s) V4 Electronically Signed On 11-03-2024 18:59:20 PDT by Yuri Castro Please click the below link to view image of tracing.
--- NOTE | 2024-11-04 22:12 | DVHDS2 ---
Physician Discharge Progress N Final Diagnosis: ESRD, missed HD Operations or Procedures: Operations or Procedures none Other Interventions Other Interventions labs, CXR Consultations: Consultations none Commentary: Commentary 73 y.o. male with CHF, DM, ESRD was brought to the ER due to chest pain that started before his dialysis session. When patient was brought to the ER, he had no CP, SOB or any other symptoms. His VS were stable and he was discharged and have HD next day. [facility] pillowcase turner would be scheduling the session and coordinating with the patient tomorrow. Condition on Discharge: Stable Disposition: Home SNF Discharge Will this Physician continue t: No Discharge Instructions: Diet: Consistent carbohydrate Activity: No Restrictions, As Tolerated Follow Up/Referral: HD tomorrow. [facility] will schedule. F/U with PMD as per schedule Medications: Continue all home medications Follow Up Care: Discharge Statement: "Patient was advised to return to the ER or call 911 if any headaches, dizziness, shortness of breath, chest pain, abdominal pain, bleeding, fevers, or worsening of medical condition. Patient was counseled about treatment plan, medications, possible side effects, patientverbalized understanding. All questions were answered to the best of my ability. This discharge took greater then 30 minutes in planning, reviewing documentation, counseling the patient, and discussing with other team members." ANN MCGUIRE MD Nov 04, 2024 22:12
== END 2024-11-01 05:15 | disposition home or self-care (01) ==
LOC: ER 19:09 → EDBD 19:09 → ER 11-01 05:15
DX: R07.89 Other chest pain (principal); E78.5 Hyperlipidemia, unspecified; F03.90 Unspecified dementia, unspecified severity, without behavioral disturbance, psychotic disturbance, mood disturbance, and anxiety; I13.2 Hypertensive heart and chronic kidney disease with heart failure and with stage 5 chronic kidney disease, or end stage renal disease; I50.9 Heart failure, unspecified; N18.6 End stage renal disease; E11.22 Type 2 diabetes mellitus with diabetic chronic kidney disease; Z86.2 Personal history of diseases of the blood and blood-forming organs and certain disorders involving the immune mechanism; Z79.899 Other long term (current) drug therapy; Z89.512 Acquired absence of left leg below knee; Z89.611 Acquired absence of right leg above knee; Z91.158 Patient's noncompliance with renal dialysis for other reason; Z98.890 Other specified postprocedural states; Z99.2 Dependence on renal dialysis
CPT/HCPCS: 36415; 71045; 80048; 83605; 83880; 84484; 85025; 93005

== ENCOUNTER 2024-11-04 17:11 | Emergency (ER) | payer OTHER, MEDICAID ==
[2024-11-04 18:40] LABS: Hematocrit 32.1 % (41.0-53.0); Hemoglobin 10.9 g/dL (13.5-17.5); Mean Corpuscular Hemoglobin 32.3 pg (28.0-32.0); Mean Corpuscular Volume 95.7 fL (80.0-100.0); Nucleated Red Blood Cells % 0.0 %
[2024-11-04 18:49] LABS: Chloride 101 mmol/L (98-107); Potassium 4.6 mmol/L (3.5-5.1); Sodium 140 mmol/L (136-145)
[2024-11-04 18:50] LABS: Anion Gap 10 (5-15); Carbon Dioxide 29 mmol/L (20-31)
[2024-11-04 18:55] LABS: BUN/Creatinine Ratio 6.3 (10.0-20.0); Glucose 85 mg/dL (74-106)
[2024-11-04 18:56] LABS: Blood Urea Nitrogen 27 mg/dL (9-23)
[2024-11-04 18:57] LABS: Calcium 8.6 mg/dL (8.7-10.4)
--- NOTE | 2024-11-04 19:44 | DVH ---
INDICATION: slipped out of wheelchair TECHNIQUE: Frontal view of the chest. COMPARISON: XY CHEST XRAY 1 VIEW on DOS: 10/31/24, XY CHEST PORTABLE on DOS: 10/26/24, XY CHEST XRAY 1 EW on DOS: 09/27/24, XY CHEST PORTABLE on DOS: 07/23/24, XY CHEST PORTABLE on DOS: 03/04/24 FINDINGS/IMPRESSION: Probable left pleural effusion with adjacent opacity. Unchanged enlarged cardiomediastinal silhouette . No pneumothorax. Unchanged osseous structures.
[2024-11-04 19:45] VITALS: TEMP 98.3
--- NOTE | 2024-11-04 20:42 | ED.PDOC ---
History of Present Illness HPI Comments 73-year-old male with a history of hypertension, diabetes, end-stage renal disease on dialysis and CHF brought in by EMS from his dialysis center. The patient reportedly slid out of his chair and had to be assisted onto the floor by dialysis center staff. He had not yet received dialysis. Dialysis staff jad led EMS to have the patient transported to the ED. On arrival to the ED, the patient denies any symptoms. He states he is not short of breath, denies any chest pain, fever, weakness or other symptoms. He states he has not injured from sliding out of the chair. He is alert to person, place, but not time. He states he is aware of why he was transported to the ER. I spoke with the patient's daughter ora Mckeon by phone. She stated that that is his baseline mental status. Stated he has been in his usual state of health at home prior to this event. Chief Complaint: General Weakness Time Seen by MD: 17:52 Primary Care Provider: UNKNOWN Allergies: Coded Allergies: NO KNOWN ALLERGIES (Unverified , 09/28/23) Home Meds Reported Medications Nifedipine (Nifedipine Er) 30 Mg Tab, 1 TAB PO DAILY for 90 Days, #90 09/26/24 Losartan Potassium (Losartan Potassium) 50 Mg Tab, 1 TAB PO EVERY 2 DAYS for 90 Days, #45 09/26/24 Dorzolamide-Timolol (Dorzolamide Hcl/Timolol M) 1 Ml Lj, 1 ML OP UD for 90 Days, #10 04/05/24 Latanoprost (Xalatan) 0.005 % Lj, 0.005 % OP UD for 25 Days, #2.5 04/05/24 Brimonidine Tartrate-Timolol M (Brimonidine Tartrate/Paul 0.2-0.5 %) 1 Lj Lj, 1 LJ OP UD for 18 Days, #5 04/05/24 Atorvastatin Calcium (Lipitor) 20 Mg Tab, 1 TAB PO DAILY, #90 TAB 1 Refill 09/29/23 Acetaminophen (Acetaminophen) 325 Mg Tab, 650 MG PO TIDP PRN for PAIN SCALE 1 THRU 6 for 30 Days, MG 0 Refills 09/29/23 Calcium Acetate (Phosphate Bin (Calcium Acetate) 667 Mg Cap, 667 MG PO TIDWM for 30 Days, MG 09/29/23 Aspirin (Aspirin Low Dose) 81 Mg Tab, 1 TAB PO DAILY for 60 Days, #60 09/29/23 Mode of Arrival: EMS Past Medical History PAST MEDICAL HISTORY: Anemia, CHF, Dementia, DM, ESRD, High Lipids, HTN Surgical History: AKA, BKA, Hernia Repair Family History Family History: Reviewed,noncontributory to illness Social History Smoker: Non-Smoker Alcohol: Denies ETOH Use Drugs: Denies Drug Use Lives In: [facility] All Other Systems: Reviewed and Negative (Comprehensive systems review obtained and negative except for what is stated in the HPI.) Physical Exam General Appearance: No Apparent Distress HEENT: Other (Pupils and face symmetric. Moist mucous membranes.) Neck: Full Range of Motion, Normal Inspection Respiratory: Lungs Clear, No Accessory Muscle Use, No Respiratory Distress, Normal Breath Sounds Cardiovascular: No Edema, No JVD, Regular Rate/Rhythm Breast Exam: Deferred Gastrointestinal: Non Tender, Soft Genitalia: Deferred Pelvic: Deferred Rectal: Deferred Extremities: Non-tender, Pelvis stable, Other (Bilateral lower extremity amputations) Neurologic: Alert (Oriented x3), Normal Affect, Normal Mood, Other (Moves all extremities. Follows commands. Appropriately conversant.) Cerebellar Function: NOT DONE Reflexes: NOT DONE Skin: Dry, Normal Color, Warm Lymphatic: NOT DONE Was a procedure done? 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, inferior and lateral T-wave inversion Differential Dx Considerations may include: Electrolyte imbalance, fluid overload, among others X-Ray, Labs, Meds, VS Vital Signs Date Time Temp Pulse Resp B/P (MAP) Pulse Ox O2 Delivery O2 Flow Rate FiO2 11/04/24 20:54 193/61 11/04/24 19:45 98.3 77 20 105/77 (86) 97 98.3 11/04/24 19:30 Room Air* 0 21 11/04/24 17:35 98.6 74 18 158/70 (99) 99 98.6 11/04/24 17:25 70 Lab Test 11/04/24 18:29 Range/Units White Blood Count 6.7 4.4-10.8 10^3/uL Red Blood Count 3.36 L 4.5-5.90 10^6/uL Hemoglobin 10.9 L 13.5-17.5 g/dL Hematocrit 32.1 L 41.0-53.0 % Mean Corpuscular Volume 95.7 80.0-100.0 fL Mean Corpuscular Hemoglobin 32.3 H 28.0-32.0 pg Mean Corpuscular Hemoglobin Concent 33.8 32.0-36.0 g/dL Red Cell Distribution Width 20.2 H 11.8-14.3 % Platelet Count 232 140-450 10^3/uL Mean Platelet Volume 6.9 6.9-10.8 fL Neutrophils (%) (Auto) 68.5 37.0-80.0 % Lymphocytes (%) (Auto) 19.5 10.0-50.0 % Monocytes (%) (Auto) 9.3 0.0-12.0 % Eosinophils (%) (Auto) 1.9 0.0-7.0 % Basophils (%) (Auto) 0.8 0.0-2.0 % Neutrophils # (Auto) 4.6 1.6-8.6 10 ^3/uL Lymphocytes # (Auto) 1.3 0.4-5.4 10 ^3/uL Monocytes # (Auto) 0.6 0-1.3 10 ^3/uL Eosinophils # (Auto) 0.1 0-0.8 10 ^3/uL Basophils # (Auto) 0.1 0-0.2 10 ^3/uL Nucleated Red Blood Cells 0.0 % Sodium Level 140 136-145 mmol/L Potassium Level 4.6 3.5-5.1 mmol/L Chloride Level 101 98-107 mmol/L Carbon Dioxide Level 29 20-31 mmol/L Anion Gap 10 5-15 Blood Urea Nitrogen 27 H 9-23 mg/dL Creatinine 4.29 H 0.700-1.30 mg/dL Glomerular Filtration Rate Calc 14 >90 mL/min BUN/Creatinine Ratio 6.3 L 10.0-20.0 Serum Glucose 85 74-106 mg/dL Calcium Level 8.6 L 8.7-10.4 mg/dL Current Medications Medications (Trade) Dose Ordered Sig/Vane Route Start Time Stop Time Status Last Admin Hydralazine HCl (Apresoline Injection) 10 mg ONCE ONCE IV 11/04/24 20:30 11/04/24 20:31 DC 11/04/24 20:54 PROCEDURE(s): CXRP - CHEST PORTABLE REASON: slipped out of wheelchair ORDER NUMBER(s): [id number], ACCESSION NUMBER(s): [id number] INDICATION: slipped out of wheelchair TECHNIQUE: Frontal view of the chest. COMPARISON: XY CHEST XRAY 1 VIEW on DOS: 10/31/24, XY CHEST PORTABLE on DOS: 10/26/24, XY CHEST XRAY 1 VIEW on DOS: 09/27/24, XY CHEST PORTABLE on DOS: 07/23/24, XY CHEST PORTABLE on DOS: 03/04/24 FINDINGS/IMPRESSION: Probable left pleural effusion with adjacent opacity. Unchanged enlarged cardiomediastinal silhouette. No pneumothorax. Unchanged osseous structures. X-Ray, Labs, Meds, VS Comment 73-year-old male with history of hypertension, diabetes, end-stage renal disease on dialysis and CHF brought in by EMS from his dialysis center after sliding out of his chair. Patient has no complaint on arrival to the ER and has remained asymptomatic Vitals remarkable for BP 158/70 Exam unremarkable Rhythm strip independently interpreted by me: Sinus rhythm, rate 70, no ectopy. Chest x-ray FINDINGS/IMPRESSION: Probable left pleural effusion with adjacent opacity. Unchanged enlarged cardiomediastinal silhouette. No pneumothorax. Unchanged osseous structures. CBC and basic metabolic panel remarkable for BUN 27, creatinine 4.29. Electrolytes are unremarkable On re-evaluation, patient was resting comfortably with stable vitals. Blood pressure was elevated, so IV hydralazine 10 mg was ordered. I discussed the findings with Dr. Hernandez. Since the patient's oxygen saturation is normal on room air and he is in no respiratory distress, she agreed he appears stable for discharge and can undergo hemodialysis tomorrow. She stated she would arrange for the patient to be contacted to arrange for dialysis tomorrow. I discussed the plan with the patient's daughter Giseslle cevallos, who stated she was comfortable with the patient being discharged home. Time of 1ST Reevaluation: 21:01 Reevaluation 1ST: Unchanged Patient Education/Counseling: Diagnosis, Treatment, Need For Follow Up Family Education/Counseling: Diagnosis, Treatment, Need For Follow Up, Other (Discussed with Gisselle Mckeno by phone) SEPSIS Sepsis Screen Date sepsis recognized/suspect: Nov 04, 2024 Time Sepsis recognized/suspect: 1734 Recent Procedure: No On Antibiotic Therapy: No Respiratory Rate >20: No Heart Rate >90: No Temp<36 C (96.8 F) or >38.3 C: No SBP <90 or MAP <65 mmHG: No New Acute Mental Status Change: No Is the patient on CPAP, BIPAP,: No Physician Orders Electrocardigram (11/04/24 17:36) Chest Portable (11/04/24 18:07) Vital Signs Date Time Temp Pulse Resp B/P (MAP) Pulse Ox O2 Delivery O2 Flow Rate FiO2 11/04/24 20:54 193/61 11/04/24 19:45 98.3 77 20 105/77 (86) 97 98.3 11/04/24 19:30 Room Air* 0 21 11/04/24 17:35 98.6 74 18 158/70 (99) 99 98.6 11/04/24 17:25 70 Laboratory Tests Test 11/04/24 18:29 White Blood Count 6.7 10^3/uL (4.4-10.8) Medications Medications Dose Ordered Sig/Vane Route Start Time Stop Time Status Last Admin Dose Admin Hydralazine HCl 10 mg ONCE ONCE IV 11/04/24 20:30 11/04/24 20:31 DC 11/04/24 20:54 Departure 1 Departure Time of Disposition: 21:00 Impression: Primary Impression: Accident due to mechanical fall without injury Qualified Codes: W19.XXXA - Unspecified fall, initial encounter Disposition: HOME / SELF CARE / HOMELESS Condition: Stable Additional Instructions: You will be contacted to arrange for dialysis tomorrow. Return to ER for chest pain, shortness of breath, fever, or any other concern. Discharged With: Self Critical Care Note Critical Care Time?: No Stability Stability form required: No Heart Score Heart Score: Heart Score Response (Comments) Value History N/A 0 EKG N/A 0 Age N/A 0 Risk Factors N/A 0 Troponin N/A 0 Total 0 ELIER SHEPHERD MD Nov 04, 2024 20:42
[2024-11-04] MEDS: hydrALAZINE HCL 20 MG/ML VL IV ONE (20:54)
[2024-11-04] MEDS: LOSARTAN POTASSIUM 50 MG TAB PO ONE (23:00)
[2024-11-04] MEDS: ACETAMINOPHEN 500 MG TAB or CAP PO ONE (23:00)
[2024-11-04] MEDS: NITROGLYCERIN 2% OINT 1GM PKG TD ONE (23:01)
[2024-11-05 00:09] VITALS: BP 148/84; PULSE 74; RESP 16; O2SAT 96
--- NOTE | 2024-11-07 08:08 | ECG ---
[facility] Test Date: 2024-11-04 Test Time: 17:25:31 Pat Name: NAV HAGER Department: ED Room: Gender: M Intramural Director: AM : 1950 Requested By: EMERGENCY EMERGENCY Order Number: [id number] Reading MD: Yuri Castro Measurements Intervals Sutton Rate: 70 P: 0 NH: 0 QRS: 156 QRSD: 131 T: -70 QT: 444 QTc: 480 Interpretive Statements Accelerated junctional rhythm RBBB and LPFB Probable anteroseptal infarct, old Nonspecific T abnormalities, lateral leads Electronically Signed On 11-07-2024 18:43:40 PDT by Yuri Castro Please click the below link to view image of tracing.
== END 2024-11-05 00:10 | disposition home or self-care (01) ==
LOC: ER 17:11 → EDBD 17:11 → ER 11-05 00:10
DX: R68.89 Other general symptoms and signs (principal); F03.90 Unspecified dementia, unspecified severity, without behavioral disturbance, psychotic disturbance, mood disturbance, and anxiety; I13.2 Hypertensive heart and chronic kidney disease with heart failure and with stage 5 chronic kidney disease, or end stage renal disease; I50.9 Heart failure, unspecified; N18.6 End stage renal disease; E11.22 Type 2 diabetes mellitus with diabetic chronic kidney disease; E78.5 Hyperlipidemia, unspecified; Z79.899 Other long term (current) drug therapy; Z98.890 Other specified postprocedural states; Z99.2 Dependence on renal dialysis; Z86.2 Personal history of diseases of the blood and blood-forming organs and certain disorders involving the immune mechanism; W19.XXXA Unspecified fall, initial encounter; Y93.89 Activity, other specified; Y92.89 Other specified places as the place of occurrence of the external cause; Y99.8 Other external cause status
CPT/HCPCS: 36415; 71045; 80048; 85025; 93005; 96374; 99285; J0360